=== PATIENT | male | born 1930 | race Caucasian/White ===

== ENCOUNTER 2016-10-20 13:38 | Emergency (ER) | payer MEDICARE, OTHER ==
[2016-10-20 13:51] VITALS: RESP 18; TEMP 97
--- NOTE | 2016-10-20 14:57 | ED ---
General Adult HPI - General Chief complaint: Back Pain/Injury Stated complaint: back spasms Time Seen by Provider: 10/20/16 14:14 Source: patient, family, RN notes reviewed, old records reviewed Mode of arrival: wheelchair Limitations: no limitations - History of Present Illness Initial comments: Chief complaint history of present illness a 86-year-old male here with left flank discomfort i.e. muscle spasms. Causes him to twitch and turn to change positions every minute. He's been the chiropractor twice this week he states he does get some relief for several hours after manipulation within the discomfort comes back. This same thing that happened in January of last year. At that time he had x-rays and CAT scan of the thoracic and lumbar spine. No evidence of any disc rupture or pathology other than generalized degenerative disc changes. Not complaining of any recent falls or injuries. 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 Also history of hypertension. he takes Xanax on days of dialysis which is Saturday and Saturday. Patient's past history includes insulin-dependent diabetes mellitus and - Related Data Home Medications Medication Instructions Recorded Confirmed ALPRAZolam [Xanax] 0.25 - 0.5 mg PO MOWEFR 02/08/16 10/20/16 Aspirin EC [Ecotrin] 81 mg PO Q48H 02/08/16 10/20/16 Atorvastatin [Lipitor] 10 mg PO HS 02/08/16 10/20/16 Calcium Acetate [Calcium Acetate] 1,334 mg PO TID 02/08/16 10/20/16 Cinnamon Bark [Cinnamon] 500 mg PO HS 02/08/16 10/20/16 Coconut Oil 4 tbsp PO DAILY 02/08/16 10/20/16 Cyclobenzaprine [Flexeril] 5 mg PO BID PRN 02/08/16 10/20/16 Fish Oil/Dha/Epa [Fish Oil 1,200 1 cap PO DAILY 02/08/16 10/20/16 mg Fish Oil] INSULIN LISPRO (HumaLOG) [HumaLOG] See Protocol SQ AC-TID PRN 02/08/16 10/20/16 Insulin Detemir [Levemir Flextouch] 35 units SQ QAM 02/08/16 10/20/16 Lidocaine-Prilocaine Cream [Emla 1 applic TOPICAL MOWEFR 02/08/16 10/20/16 Cream 2.5%/2.5%] Multivitamins, Thera [Multivitamin] 1 tab PO DAILY 02/08/16 10/20/16 diphenhydrAMINE [Benadryl] 25 mg PO MOWEFR 02/08/16 10/20/16 Cholecalciferol [Vitamin D3] 1,000 unit PO DAILY 10/20/16 10/20/16 HYDROcodone/APAP 5-325MG [[place] 1 tab PO DAILY PRN 10/20/16 10/20/16 5-325] Magnesium Oxide [Mag-Ox] 400 mg PO DAILY 10/20/16 10/20/16 Ubidecarenone [Co Q-10] 30 mg PO DAILY 10/20/16 10/20/16 Previous Rx's Medication Instructions Recorded Diazepam [Valium] 5 mg PO BID #6 tab 10/20/16 Nitrofurantoin Monohyd/M-Cryst 100 mg PO Q12HR #14 cap 10/20/16 [Macrobid] Allergies Allergy/AdvReac Type Severity Reaction Status Date / Time Penicillins Allergy Unknown Verified 10/20/16 14:25 Childhood Sulfa (Sulfonamide Allergy Unknown Verified 10/20/16 14:25 Antibiotics) Childhood Review of Systems ROS Statement: Those systems with pertinent positive or pertinent negative responses have been documented in the HPI. Review of systems. Patient's denying any visual acuity changes or headache no chest pain or shortness of breath. No abdominal pain by does have left flank pain and spasms which causes him to stiffen and then relax and stiffen and relax. No injuries and no rashes noted. Similar back spasms occurred approximately 8 months ago. He's been on Flexeril for relief. Chiropractic seems to help but only for short period of time. He has gone to the chiropractor twice this week. Past medical problems are delineated in the chief complaint is surgeries include bowel resection for colon cancer and he still has a colostomy bag. Family history daughter and his father had cancer of unknown types. Patient has ALLERGIES to penicillin and sulfa. He quit smoking 20 years ago drinks alcohol very rarely socially. ROS Other: All systems not noted in ROS Statement are negative. Past Medical History Past Medical History: Hypertension Additional Past Medical History / Comment(s): kidney failure, colon ca History of Any Multi-Drug Resistant Organisms: C-DIFF Past Surgical History: Bowel Resection Additional Past Surgical History / Comment(s): colostomy Past Psychological History: No Psychological Hx Reported Smoking Status: Former smoker Past Alcohol Use History: None Reported Past Drug Use History: None Reported General Exam - General Exam Comments Initial Comments: General: The patient is awake and alert, finds it difficult to lay in one position without a spasm to his left flank area. Vital signs show temperature 97.0 pulse 78 respiratory rate 18 pulse ox 96% room air blood pressure 164/74. Elevated systolic noted the patient is in distress because of discomfort to his flank, muscle spasms. Eye: Pupils are equal, round and reactive to light, extra-ocular movements are intact ; there is normal conjunctiva bilaterally. No signs of icterus. Ears, nose, mouth and throat: There are moist mucous membranes and no oral lesions. Neck: The neck is supple, there is no tenderness . Cardiovascular: There is a regular rate and rhythm. No murmur, rub or gallop is appreciated. Respiratory: Decreased air entry left lung field. Gastrointestinal: Soft, non-distended, non-tender abdomen without masses or organomegaly noted. Patient has a functioning colostomy bag. Back: Left mid flank pain increases with movement and a mild palpation no evidence of any rash. Early shingles was discussed. No bruises noted. Musculoskeletal: Normal ROM, no tenderness, There is no pedal edema. Neurological: No neuro deficits Skin: Skin is warm and dry and no rashes or lesions are noted. No rashes noted Limitations: no limitations Course Vital Signs 10/20/16 13:48 Temperature 97.0 F L Pulse Rate 78 Respiratory 18 Rate Blood Pressure 164/74 O2 Sat by Pulse 96 Oximetry Medical Decision Making - Medical Decision Making Daughter was called, and she is living in [place]. She states Valium did help the muscle spasms. She can't remember if he had Levaquin and a reaction to that antibiotic. The daughter established that he can receive Valium as her no contraindications at this time. Chest x-ray is done and reviewed by radiologist his impression is no active cardiopulmonary disease. 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 No change compared to old exam. As read by Dr. Mello Within 30 minutes taking the Valium by mouth. The patient's spasms of stopped. Labs show white count of 9, hemoglobin 12, hematocrit 35 Patient reports ALLERGIES to sulfa and penicillin and possibly Levaquin per daughter. The patient is afebrile, without chills no normal white count 9000. Patient's urine shows bacteria positive, greater than 180 white cells leuk esterase positive. The patient will this time be placed on Macrobid while waiting for cultures and sensitivities to return. Patient also be placed on Valium 5 mg twice a day for the next 2-1/2 days. Advised to call follow up with his family physician. - Lab Data Result diagrams: 10/20/16 15:23 Lab Results 10/20/16 10/20/16 Range/Units 15:23 15:23 WBC 9.2 (3.8-10.6) k/uL RBC 3.68 L (4.30-5.90) m/uL Hgb 12.0 L (13.0-17.5) gm/dL Hct 35.5 L (39.0-53.0) % MCV 96.6 (80.0-100.0) fL MCH 32.7 (25.0-35.0) pg MCHC 33.8 (31.0-37.0) g/dL RDW 13.5 (11.5-15.5) % Plt Count 165 (150-450) k/uL Neutrophils % 61 % Lymphocytes % 26 % Monocytes % 7 % Eosinophils % 4 % Basophils % 0 % Neutrophils # 5.6 (1.3-7.7) k/uL Lymphocytes # 2.4 (1.0-4.8) k/uL Monocytes # 0.7 (0-1.0) k/uL Eosinophils # 0.3 (0-0.7) k/uL Basophils # 0.0 (0-0.2) k/uL Urine Color Yellow Urine Appearance Turbid (Clear) Urine pH 6.5 (5.0-8.0) Ur Specific [place] 1.014 (1.001-1.035) Urine Protein 2+ H (Negative) Urine Glucose (UA) Negative (Negative) Urine Ketones Negative (Negative) Urine Blood Small H (Negative) Urine Nitrate Negative (Negative) Urine Bilirubin Negative (Negative) Urine Urobilinogen <2.0 (<2.0) mg/dL Ur Leukocyte Esterase Large H (Negative) Urine WBC >182 H (0-5) /hpf Urine WBC Clumps Moderate H (None) /hpf Urine Bacteria Many H (None) /hpf Disposition Clinical Impression: Muscle spasm of back, Urinary tract infection, Chronic kidney disease Disposition: HOME SELF-CARE Condition: Fair Instructions: Flank Pain (ED), Urinary Tract Infection in Men (ED) Additional Instructions: Take Valium 5 mg twice a day for the next 2 days. Increase fluid intake. Follow-up with dialysis. Take nitrofurantoin 100 mg twice a day for 1 week. Call follow-up with family physician to make sure antibiotic is appropriate for current infection. Prescriptions: Diazepam [Valium] 5 mg PO BID #6 tab Nitrofurantoin Monohyd/M-Cryst [Macrobid] 100 mg PO Q12HR #14 cap Time of Disposition: 16:11
[2016-10-20] MEDS ORDERED: DIAZEPAM 5 MG TAB PO STA (15:04)
--- NOTE | 2016-10-20 15:44 | XR ---
EXAMINATION TYPE: XR chest 2V DATE OF EXAM: 10/20/2016 3:35 PM COMPARISON: 02/08/2016 HISTORY: Back pain TECHNIQUE: Frontal and lateral views of the chest are obtained. FINDINGS: Heart size is normal. Lungs are clear of infiltrate. There is no heart failure. Thoracic a sudarshan is atheromatous. There are no hilar masses. Bony thorax is intact. IMPRESSION: No active cardio pulmonary disease. 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 No parrish nge compared to old exam.
[2016-10-20 15:51] LABS: Basophils % (A) 0 %; CH 33.6; CHCM 34.9; Eosinophils # (A) 0.3 k/uL (0-0.7); Eosinophils % (A) 4 %; HCT 35.5 % (39.0-53.0); HDW 2.29; Luc # (Auto) 0.22; Luc % (Auto) 2; Lymphocytes # (A) 2.4 k/uL (1.0-4.8); Lymphocytes % (A) 26 %; MCH 32.7 pg (25.0-35.0); MCHC 33.8 g/dL (31.0-37.0); MCV 96.6 fL (80.0-100.0); Mean Platelet Volume 7.9; Monocytes # (A) 0.7 k/uL (0-1.0); Monocytes % (A) 7 %; Neutrophils # (A) 5.6 k/uL (1.3-7.7); Neutrophils % (A) 61 %; RBC 3.68 m/uL (4.30-5.90); RDW 13.5 % (11.5-15.5); WBC 9.2 k/uL (3.8-10.6); WBC (Perox) 9.31
[2016-10-20 15:53] LABS: Appearance,Urine Turbid (Clear); Bacteria,Urine Many /hpf; Bilirubin,Urine Negative (Negative); Glucose,Urine (UA) Negative (Negative); Ketones,Urine Negative (Negative); Leukocyte Esterase,Urine Large (Negative); Nitrite,Urine Negative (Negative); PH, Urine 6.5 (5.0-8.0); Particle Count 164026; Protein,Urine 2+ (Negative); Specific Gravity,Urine 1.014 (1.001-1.035); UA Billing (MACRO vs. MICRO) MICRO; Urobilinogen,Urine <2.0 mg/dL (<2.0); WBC,Urine >182 /hpf (0-5)
[2016-10-20 16:06] LABS: Calcium 9.6 mg/dL (8.4-10.2); Potassium 4.2 mmol/L (3.5-5.1); Total Bilirubin 0.6 mg/dL (0.2-1.3); Total Protein 7.8 g/dL (6.3-8.2)
[2016-10-20 16:30] VITALS: BP 131/67; PULSE 88
== END 2016-10-20 16:30 | disposition home or self-care (01) ==
LOC: EC 13:38
DX: M62.830 Muscle spasm of back (principal); N39.0 Urinary tract infection, site not specified; Z99.2 Dependence on renal dialysis; I12.9 Hypertensive chronic kidney disease with stage 1 through stage 4 chronic kidney disease, or unspecified chronic kidney disease; N18.9 Chronic kidney disease, unspecified; E11.9 Type 2 diabetes mellitus without complications; Z79.82 Long term (current) use of aspirin; Z79.899 Other long term (current) drug therapy; Z88.2 Allergy status to sulfonamides; Z88.0 Allergy status to penicillin; Z85.038 Personal history of other malignant neoplasm of large intestine; Z93.3 Colostomy status; Z87.891 Personal history of nicotine dependence; Z79.4 Long term (current) use of insulin
CPT/HCPCS: 36415; 71020; 80053; 81001; 85025; 87077; 87086; 87186; 99284

== ENCOUNTER 2016-11-09 16:58 | Inpatient (IN) | payer MEDICARE, OTHER ==
--- NOTE | 2016-11-09 17:16 | ED ---
Fever HPI - General Source: EMS, RN notes reviewed Mode of arrival: EMS <Ariadne Garcia - Last Filed: 11/09/16 19:34> <Aurelio Robertson - Last Filed: 11/09/16 19:37> - General Chief Complaint: Fever Stated Complaint: back spasms Time Seen by Provider: 11/09/16 17:09 - History of Present Illness Initial Comments: Patient is an 86-year-old male with chief complaint of fever and back spasms for approximately few hours, patient has a history of chronic back spasms. He denies any recent falls or injuries. Patient has past medical history of renal failure and is currently undergoing dialysis. Patient went to dialysis today and was feeling fine up until after dialysis. At that point he developed fever went to see his primary care provider. The primary care provider decided he needed to be seen in the emergency room. Patient currently has a fever 101.2. Patient states caregiver also states that he's had a cough. Over the past 2 days she's noticed bilateral conjunctiva injection as well. Patient has had no Motrin or Tylenol. Patient usually takes diazepam for his back spasms and they have not been helping over the past day. Patient reports that IV diazepam usually diminishes back spasm. Patient does have a colostomy bag. (Ariadne Garcia) - Related Data Home Medications Medication Instructions Recorded Confirmed ALPRAZolam [Xanax] 0.5 mg PO MOWEFR 02/08/16 11/09/16 Aspirin EC [Ecotrin] 81 mg PO Q48H 02/08/16 11/09/16 Atorvastatin [Lipitor] 10 mg PO HS 02/08/16 11/09/16 Calcium Acetate [Calcium Acetate] 1,334 mg PO AC-TID 02/08/16 11/09/16 Cinnamon Bark [Cinnamon] 500 mg PO HS 02/08/16 11/09/16 Coconut Oil 4 tbsp PO BID 02/08/16 11/09/16 Cyclobenzaprine [Flexeril] 5 mg PO BID PRN 02/08/16 11/09/16 Fish Oil/Dha/Epa [Fish Oil 1,200 1 cap PO DAILY 02/08/16 11/09/16 mg Fish Oil] INSULIN LISPRO (HumaLOG) [HumaLOG] See Protocol SQ AC-TID 02/08/16 11/09/16 Insulin Detemir [Levemir Flextouch] 35 units SQ QAM 02/08/16 11/09/16 Lidocaine-Prilocaine Cream [Emla 1 applic TOPICAL MOWEFR 02/08/16 11/09/16 Cream 2.5%/2.5%] Multivitamins, Thera [Multivitamin] 1 tab PO DAILY 02/08/16 11/09/16 Cholecalciferol [Vitamin D3] 1,000 unit PO DAILY 10/20/16 11/09/16 Magnesium Oxide [Mag-Ox] 400 mg PO DAILY 10/20/16 11/09/16 Ubidecarenone [Co Q-10] 30 mg PO DAILY 10/20/16 11/09/16 Diazepam [Valium] 5 mg PO BID PRN 11/09/16 11/09/16 Allergies Allergy/AdvReac Type Severity Reaction Status Date / Time Penicillins Allergy Unknown Verified 11/09/16 17:47 Childhood Sulfa (Sulfonamide Allergy Unknown Verified 11/09/16 17:47 Antibiotics) Childhood Review of Systems ROS Other: All systems not noted in ROS Statement are negative. <Ariadne Garcia - Last Filed: 11/09/16 19:34> ROS Other: All systems not noted in ROS Statement are negative. <Aurelio Robertson - Last Filed: 11/09/16 19:37> ROS Statement: Those systems with pertinent positive or pertinent negative responses have been documented in the HPI. Past Medical History Past Medical History: Dementia, Dialysis, Hyperlipidemia, Hypertension Additional Past Medical History / Comment(s): kidney failure, colon ca History of Any Multi-Drug Resistant Organisms: C-DIFF Past Surgical History: Bowel Resection Additional Past Surgical History / Comment(s): colostomy Past Psychological History: No Psychological Hx Reported Smoking Status: Former smoker Past Alcohol Use History: None Reported Past Drug Use History: None Reported <Ariadne Garcia - Last Filed: 11/09/16 19:34> General Exam General appearance: alert, in no apparent distress Head exam: Present: atraumatic, normocephalic, normal inspection Eye exam: Present: normal appearance, PERRL, EOMI. Absent: scleral icterus, conjunctival injection, periorbital swelling ENT exam: Present: normal exam, mucous membranes moist Neck exam: Present: normal inspection. Absent: tenderness, meningismus, lymphadenopathy Respiratory exam: Present: other (Patient has diminished lung sounds over the right lung.). Absent: normal lung sounds bilaterally, respiratory distress, wheezes, rales, rhonchi, stridor Cardiovascular Exam: Present: regular rate, normal rhythm, normal heart sounds. Absent: systolic murmur, diastolic murmur, rubs, gallop, clicks GI/Abdominal exam: Present: soft, normal bowel sounds. Absent: distended, tenderness, guarding, rebound, rigid Extremities exam: Present: normal inspection, full ROM, normal capillary refill. Absent: tenderness, pedal edema, joint swelling, calf tenderness Back exam: Present: normal inspection Neurological exam: Present: alert, oriented X3, CN II-XII intact Psychiatric exam: Present: normal affect, normal mood Skin exam: Present: warm, dry, intact, normal color. Absent: rash <Ariadne Garcia - Last Filed: 11/09/16 19:34> General appearance: alert, in no apparent distress Head exam: Present: atraumatic, normocephalic, normal inspection Eye exam: Present: normal appearance, PERRL, EOMI. Absent: scleral icterus, conjunctival injection, periorbital swelling ENT exam: Present: normal exam, mucous membranes moist Neck exam: Present: normal inspection. Absent: tenderness, meningismus, lymphadenopathy Respiratory exam: Present: normal lung sounds bilaterally. Absent: respiratory distress, wheezes, rales, rhonchi, stridor Cardiovascular Exam: Present: regular rate, normal rhythm, normal heart sounds. Absent: systolic murmur, diastolic murmur, rubs, gallop, clicks GI/Abdominal exam: Present: soft, normal bowel sounds. Absent: distended, tenderness, guarding, rebound, rigid Extremities exam: Present: normal inspection, full ROM, normal capillary refill. Absent: tenderness, pedal edema, joint swelling, calf tenderness Back exam: Present: normal inspection Neurological exam: Present: alert, oriented X3, CN II-XII intact Psychiatric exam: Present: normal affect, normal mood Skin exam: Present: warm, dry, intact, normal color. Absent: rash <Aurelio Robertson - Last Filed: 11/09/16 19:37> - General Exam Comments Initial Comments: Patient is an ill-appearing 86-year-old male. (Ariadne Garcia) Course <Ariadne Garcia - Last Filed: 11/09/16 19:34> <Aurelio Robertson - Last Filed: 11/09/16 19:37> Vital Signs 11/09/16 02 17:07 17:21 Temperature 101.6 F H Pulse Rate 100 107 H Respiratory 20 22 Rate Blood Pressure 162/72 139/65 O2 Sat by Pulse 92 L 97 Oximetry - Reevaluation(s) Reevaluation #1: 11/09/16 19:37 Spoke with patient's transfer physician Dr. Marshall, will continue to evaluate for fever (Aurelio Robertson) Reevaluation #2: 11/09/16 19:37 Patient's spasms are improved (Aurelio Robertson) Medical Decision Making - Lab Data Result diagrams: 11/09/16 17:15 11/09/16 17:15 <Ariadne Garcia - Last Filed: 11/09/16 19:34> - Lab Data Result diagrams: 11/09/16 17:15 11/09/16 17:15 <Aurelio Robertson - Last Filed: 11/09/16 19:37> - Medical Decision Making Family reports he is ALLERGIC to Levaquin. (Ariadne Garcia) 86 now the ER for evaluation of fever back spasms, patient will be admitted for fever evaluation, control symptoms. (Aurelio Robertson) - Lab Data Lab Results 11/09/16 11/09/16 11/09/16 Range/Units 17:15 17:15 17:15 WBC 14.4 H (3.8-10.6) k/uL RBC 3.41 L (4.30-5.90) m/uL Hgb 11.3 L (13.0-17.5) gm/dL Hct 33.9 L (39.0-53.0) % MCV 99.4 (80.0-100.0) fL MCH 33.0 (25.0-35.0) pg MCHC 33.2 (31.0-37.0) g/dL RDW 13.5 (11.5-15.5) % Plt Count 191 (150-450) k/uL Neutrophils % 83 % Lymphocytes % 9 % Monocytes % 5 % Eosinophils % 1 % Basophils % 0 % Neutrophils # 11.9 H (1.3-7.7) k/uL Lymphocytes # 1.2 (1.0-4.8) k/uL Monocytes # 0.8 (0-1.0) k/uL Eosinophils # 0.1 (0-0.7) k/uL Basophils # 0.1 (0-0.2) k/uL Sodium 139 (137-145) mmol/L Potassium 4.1 (3.5-5.1) mmol/L Chloride 95 L (98-107) mmol/L Carbon Dioxide 28 (22-30) mmol/L Anion Gap 16 mmol/L BUN 31 H (9-20) mg/dL Creatinine 5.40 H* (0.66-1.25) mg/dL Est GFR (MDRD) Af Amer 12 (>60 ml/min/1.73 sqM) Est GFR (MDRD) Non-Af 10 (>60 ml/min/1.73 sqM) Glucose 171 H (74-99) mg/dL Plasma Lactic Acid Aj (0.7-2.0) mmol/L Calcium 9.5 (8.4-10.2) mg/dL Total Bilirubin 0.7 (0.2-1.3) mg/dL AST 22 (17-59) U/L ALT 24 (21-72) U/L Alkaline Phosphatase 72 (38-126) U/L Total Protein 7.7 (6.3-8.2) g/dL Albumin 4.3 (3.5-5.0) g/dL Heterophile Antibody Negative (Negative) Influenza Type A RNA (Not Detectd) Influenza Type B (PCR) (Not Detectd) 11/09/16 11/09/16 Range/Units 17:15 17:15 WBC (3.8-10.6) k/uL RBC (4.30-5.90) m/uL Hgb (13.0-17.5) gm/dL Hct (39.0-53.0) % MCV (80.0-100.0) fL MCH (25.0-35.0) pg MCHC (31.0-37.0) g/dL RDW (11.5-15.5) % Plt Count (150-450) k/uL Neutrophils % % Lymphocytes % % Monocytes % % Eosinophils % % Basophils % % Neutrophils # (1.3-7.7) k/uL Lymphocytes # (1.0-4.8) k/uL Monocytes # (0-1.0) k/uL Eosinophils # (0-0.7) k/uL Basophils # (0-0.2) k/uL Sodium (137-145) mmol/L Potassium (3.5-5.1) mmol/L Chloride (98-107) mmol/L Carbon Dioxide (22-30) mmol/L Anion Gap mmol/L BUN (9-20) mg/dL Creatinine (0.66-1.25) mg/dL Est GFR (MDRD) Af Amer (>60 ml/min/1.73 sqM) Est GFR (MDRD) Non-Af (>60 ml/min/1.73 sqM) Glucose (74-99) mg/dL Plasma Lactic Acid Aj 1.7 (0.7-2.0) mmol/L Calcium (8.4-10.2) mg/dL Total Bilirubin (0.2-1.3) mg/dL AST (17-59) U/L ALT (21-72) U/L Alkaline Phosphatase (38-126) U/L Total Protein (6.3-8.2) g/dL Albumin (3.5-5.0) g/dL Heterophile Antibody (Negative) Influenza Type A RNA Not Detected (Not Detectd) Influenza Type B (PCR) Not Detected (Not Detectd) Disposition Time of Disposition: 19:35 <Ariadne Garcia - Last Filed: 11/09/16 19:34> <Aurelio Robertson - Last Filed: 11/09/16 19:37> Clinical Impression: Back spasm, Fever and chills, Renal failure, Bilateral conjunctivitis, Cough Disposition: ADMITTED IP TO THIS HOSP Condition: Stable Referrals: Chace Marshall MD [Primary Care Provider] - 1-2 days
[2016-11-09] MEDS ORDERED: SODIUM CHLORIDE 0.9% 1,000 ML IV STA (17:17)
[2016-11-09] MEDS ORDERED: SODIUM CHLORIDE 0.9% 500 ML IV STA (17:17)
[2016-11-09] MEDS ORDERED: DIAZEPAM 5 MG/ML 2 ML SYRINGE IVP STA (17:18)
[2016-11-09] MEDS ORDERED: ACETAMINOPHEN IV (For NPO) 1,000 MG in EMPTY BAG 1 BAG IVPB STA (17:24)
[2016-11-09 17:31] LABS: Basophils # (A) 0.1 k/uL (0-0.2); Basophils % (A) 0 %; CH 33.6; Eosinophils # (A) 0.1 k/uL (0-0.7); Eosinophils % (A) 1 %; HCT 33.9 % (39.0-53.0); HDW 2.32; HGB 11.3 gm/dL (13.0-17.5); Luc # (Auto) 0.29; Luc % (Auto) 2; Lymphocytes # (A) 1.2 k/uL (1.0-4.8); Lymphocytes % (A) 9 %; MCHC 33.2 g/dL (31.0-37.0); MCV 99.4 fL (80.0-100.0); Mean Platelet Volume 7.9; Monocytes # (A) 0.8 k/uL (0-1.0); Monocytes % (A) 5 %; Neutrophils # (A) 11.9 k/uL (1.3-7.7); Neutrophils % (A) 83 %; RBC 3.41 m/uL (4.30-5.90); RDW 13.5 % (11.5-15.5); WBC 14.4 k/uL (3.8-10.6); WBC (Perox) 15.13
[2016-11-09] MEDS ORDERED: CIPROFLOXACIN 0.3% OPHTH SOLN 2.5 ML BTL BOTH EYES STA (17:40)
[2016-11-09 17:42] LABS: Calcium 9.5 mg/dL (8.4-10.2); Potassium 4.1 mmol/L (3.5-5.1); Total Bilirubin 0.7 mg/dL (0.2-1.3); Total Protein 7.7 g/dL (6.3-8.2)
--- NOTE | 2016-11-09 18:23 | XR ---
EXAMINATION TYPE: XR chest 2V DATE OF EXAM: 11/09/2016 5:52 PM COMPARISON: 10/20/2016 HISTORY: Fever TECHNIQUE: Frontal and lateral views of the chest are obtained. FINDINGS: There is coarsening of interstitial pulmonary markings. There is no gross heart failure. T horacic aorta is atheromatous. There is no pleural effusion. There are no hilar masses. IMPRESSION: Pulmonary fibrotic changes. Atheromatous aorta. No change compared to old exam. No acute lung disease.
[2016-11-09] MEDS ORDERED: LEVOFLOXACIN 750MG-D5W PMX 750 MG in DEXTROSE/WATER 1 150ML.BAG IVPB STA (18:51)
[2016-11-09] MEDS ORDERED: ONDANSETRON 4 MG/2 ML VIAL IVP PRN (19:24)
[2016-11-09] MEDS ORDERED: NALOXONE 0.4 MG/ML 1 ML VIAL IV PRN (19:24)
[2016-11-09 20:14] LABS: Appearance,Urine Cloudy (Clear); Bacteria,Urine Rare /hpf; Bilirubin,Urine Negative (Negative); Glucose,Urine (UA) Negative (Negative); Ketones,Urine Negative (Negative); Leukocyte Esterase,Urine Large (Negative); Nitrite,Urine Negative (Negative); Particle Count 75199; Protein,Urine 2+ (Negative); RBC,Urine 130 /hpf (0-5); Specific Gravity,Urine 1.013 (1.001-1.035); UA Billing (MACRO vs. MICRO) MICRO; Urobilinogen,Urine <2.0 mg/dL (<2.0); WBC,Urine >182 /hpf (0-5)
[2016-11-09] MEDS ORDERED: ACETAMINOPHEN TAB 500 MG TAB PO PRN (20:49)
[2016-11-09 21:48] LABS: Hemoglobin A1C 6.4 % (4.2-6.1)
[2016-11-09] MEDS: LORazepam 2 MG/ML SYRINGE IV PRN (21:50)
[2016-11-09] MEDS: ATORVASTATIN 10 MG TAB PO SCH (22:35)
[2016-11-09] MEDS: CIPROFLOXACIN 0.3% OPHTH SOLN 2.5 ML BTL BOTH EYES SCH (23:48)
[2016-11-09 23:50] LABS: Glucose,Whole Blood 141 mg/dL (75-99)
[2016-11-10] MEDS: CIPROFLOXACIN 0.3% OPHTH SOLN 2.5 ML BTL BOTH EYES SCH ×6 (04:42→23:30)
[2016-11-10 07:21] LABS: Glucose,Whole Blood 125 mg/dL (75-99)
[2016-11-10] MEDS: LORazepam 2 MG/ML SYRINGE IV PRN ×2 (08:14→21:50)
[2016-11-10] MEDS: MAGNESIUM OXIDE 400 MG TAB PO SCH (08:18)
[2016-11-10] MEDS: CALCIUM ACETATE 667 MG CAP PO SCH ×3 (08:18→18:06)
[2016-11-10] MEDS: ENOXAPARIN 40 MG/0.4 ML SYRINGE SQ SCH (08:18)
[2016-11-10] MEDS: INSULIN LISPRO (humaLOG) 300 UNIT/3 ML VIAL SQ SCH ×4 (08:18→18:13)
[2016-11-10] MEDS: ASPIRIN 81 MG CHEW PO SCH (08:18)
[2016-11-10] MEDS: INSULIN DETEMIR 100 UNIT/ML 10 ML VIAL SQ SCH (08:22)
[2016-11-10] MEDS: CYCLOBENZAPRINE 5 MG TAB PO PRN ×2 (08:34→21:02)
[2016-11-10] MEDS ORDERED: NON-FORMULARY DRUG (Ubidecarenone [Co Q-10] 30 MG) PO SCH (09:00)
[2016-11-10] MEDS ORDERED: NON-FORMULARY DRUG (Fish Oil/Dha/Epa [Fish Oil 1,200 Mg Fish Oil] 1 CAP) PO SCH (09:00)
[2016-11-10] MEDS ORDERED: BACLOFEN 10 MG TAB PO PRN (09:19)
[2016-11-10 10:13] LABS: Basophils % (A) 0 %; CH 33.5; CHCM 33.2; Eosinophils # (A) 0.1 k/uL (0-0.7); Eosinophils % (A) 1 %; HCT 30.3 % (39.0-53.0); HDW 2.32; HGB 10.1 gm/dL (13.0-17.5); Luc # (Auto) 0.04; Luc % (Auto) 0; Lymphocytes # (A) 0.4 k/uL (1.0-4.8); Lymphocytes % (A) 4 %; MCH 33.7 pg (25.0-35.0); MCHC 33.2 g/dL (31.0-37.0); MCV 101.4 fL (80.0-100.0); Macrocytosis Slight; Mean Platelet Volume 8.5; Monocytes # (A) 0.2 k/uL (0-1.0); Monocytes % (A) 2 %; Neutrophils # (A) 9.4 k/uL (1.3-7.7); Neutrophils % (A) 93 %; RBC 2.99 m/uL (4.30-5.90); RDW 13.5 % (11.5-15.5); WBC 10.2 k/uL (3.8-10.6); WBC (Perox) 10.58
[2016-11-10 10:23] LABS: Calcium 8.6 mg/dL (8.4-10.2); Potassium 4.1 mmol/L (3.5-5.1)
[2016-11-10 12:17] LABS: Glucose,Whole Blood 154 mg/dL (75-99)
[2016-11-10] MEDS: MULTIVITAMINS, THERA 1 EACH TAB PO SCH (12:45)
[2016-11-10] MEDS: CHOLECALCIFEROL 1,000 UNIT TAB PO SCH (12:45)
--- NOTE | 2016-11-10 16:00 | HP ---
DATE OF ADMISSION: 11/09/2016 PRESENTING COMPLAINT: Fever. HISTORY OF PRESENTING COMPLAINT: This is an 86-year-old patient of Dr. Marshall who lives by himself. 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 The patient presents with fever up to 101, urinary frequency. Also got chronic back pain, having more spasms. Denies any respiratory symptoms. Started on ceftriaxone. REVIEW OF SYSTEMS: CONSTITUTIONAL: Tired, febrile. HEENT: None. RESPIRATORY: None. CARDIOVASCULAR: None. GASTROINTESTINAL: None. GENITOURINARY: Urinary frequency. DERMATOLOGICAL: None. HEMATOLOGICAL: None. LYMPHATICS: None. PSYCHIATRY: Forgetful. NEUROLOGICAL: Getting back spasms. Past medical history of back spasms, dementia, end-stage kidney disease with fistula in the left arm, hypertension, colon cancer, coronary artery disease with stent, diabetes, anxiety. PAST SURGICAL HISTORY: Bowel resection, cardiac cath with stent, colostomy 2010. SOCIAL HISTORY: Lives with himself at [facility], uses a walker. FAMILY HISTORY: Reviewed, noncontributory to the presentation. HOME MEDICATIONS: 1. CoQ10, 30 mg p.o. daily. 2. Multivitamin 1 tablet p.o. daily. 3. Magnesium oxide 400 mg p.o. daily. 4. Lidocaine topical Saturday, Saturday and Saturday. 5. Levemir 35 units subcu in the morning. 6. Humalog per protocol. 7. Fish oil 1200 mg capsule daily. 8. Valium 5 mg p.o. b.i.d. p.r.n. 9. Flexeril 5 mg p.o. b.i.d. p.r.n. 10. Coconut oil 4 tablespoons p.o. b.i.d. 11. Cinnamon 500 mg p.o. q.h.s. 12. Vitamin D3, 1000 units p.o. daily. 13. PhosLo 2 tablets p.o. t.i.d. 14. Lipitor 10 mg q.h.s. 15. Aspirin 81 mg q.48 hours. 16. Xanax, 0.5 p.o. Saturday, Saturday and Saturday. Allergies to PENICILLIN, SULFA. On examination, T-max 101.6, pulse 107, respirations 22, blood pressure 139/65, pulse ox 97% on room air. GENERAL APPEARANCE: Well built, lying in bed, tired appearing. EYES: Pupils equal. Conjunctivae normal. HENT: External appearance of nose and ears normal. Oral cavity normal. NECK: JVD not raised. Mass not palpable. RESPIRATORY: Effort normal. LUNGS: Decreased breath sounds. CARDIOVASCULAR: First and second sounds normal. No edema. ABDOMEN: Soft, nontender. Liver and spleen not palpable. LYMPHATIC: No lymph nodes palpable of the neck or axillae. PSYCHIATRY: Alert and oriented x3. Mood and affect normal. NEUROLOGICAL: Pupils equal. Cranial nerves grossly intact. Power and sensation grossly intact. INVESTIGATIONS: White count 14.4, hemoglobin 11.3. Potassium 4.1. BUN 31, creatinine 5.40. UA positive for leukocyte esterase. Influenza negative. ASSESSMENT: 1. Acute severe urinary tract infection with sepsis, present on admission. 2. 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 3. Alzheimer's dementia with no behavioral disturbance, late onset. 4. Essential hypertension. 5. Coronary artery disease with prior history of stent. 6. Diabetes mellitus type 2, chronically on insulin. 7. Anxiety, not otherwise specified. 8. Acute flareup of back muscle spasms. PLAN: Patient was put on baclofen for muscle spasm for which he is feeling better. Put on IV ceftriaxone. Cultures are pending. Home medications resumed. Care was discussed with daughter and son-in-law at the bedside. Questions were answered.
[2016-11-10 17:13] LABS: Glucose,Whole Blood 147 mg/dL (75-99)
[2016-11-10] MEDS: BACLOFEN 10 MG TAB PO SCH ×2 (18:06→20:59)
[2016-11-10 20:43] LABS: Glucose,Whole Blood 115 mg/dL (75-99)
[2016-11-10] MEDS: ATORVASTATIN 10 MG TAB PO SCH (20:58)
[2016-11-10] MEDS ORDERED: DIAZEPAM 5 MG/ML 2 ML SYRINGE IVP STA (23:19)
[2016-11-11] MEDS: CIPROFLOXACIN 0.3% OPHTH SOLN 2.5 ML BTL BOTH EYES SCH ×5 (05:32→19:49)
[2016-11-11 07:29] LABS: Glucose,Whole Blood 122 mg/dL (75-99)
[2016-11-11] MEDS ORDERED: PNEUMOCOCCAL VACC-PNEUMOVAX 23 25 MCG/0.5 ML VIAL IM ONE (08:27)
[2016-11-11] MEDS ORDERED: INFLUENZA VACCINE (3YR+) 60 MCG/0.5 ML SYRINGE IM ONE (08:27)
[2016-11-11] MEDS: MAGNESIUM OXIDE 400 MG TAB PO SCH (08:55)
[2016-11-11] MEDS: BACLOFEN 10 MG TAB PO SCH ×4 (08:55→19:51)
[2016-11-11] MEDS: ENOXAPARIN 40 MG/0.4 ML SYRINGE SQ SCH (08:56)
[2016-11-11] MEDS: INSULIN DETEMIR 100 UNIT/ML 10 ML VIAL SQ SCH (08:56)
[2016-11-11] MEDS: CALCIUM ACETATE 667 MG CAP PO SCH ×3 (08:56→16:47)
[2016-11-11] MEDS: LORazepam 2 MG/ML SYRINGE IV PRN (09:43)
[2016-11-11 11:52] LABS: Glucose,Whole Blood 150 mg/dL (75-99)
[2016-11-11] MEDS: INSULIN LISPRO (humaLOG) 300 UNIT/3 ML VIAL SQ SCH ×2 (12:00→17:18)
[2016-11-11] MEDS: MULTIVITAMINS, THERA 1 EACH TAB PO SCH (12:00)
[2016-11-11] MEDS: CHOLECALCIFEROL 1,000 UNIT TAB PO SCH (12:00)
[2016-11-11 17:23] LABS: Glucose,Whole Blood 161 mg/dL (75-99)
[2016-11-11] MEDS: ATORVASTATIN 10 MG TAB PO SCH (19:49)
[2016-11-11] MEDS ORDERED: methylPREDNISolone SOD SUCCI 125 MG/2 ML VIAL IV SCH (21:45)
[2016-11-11] MEDS: LATANOPROST 0.005% OPHTH DROPS 2.5 ML BTL BOTH EYES SCH (22:09)
[2016-11-11] MEDS: NAPROXEN 250 MG TAB PO SCH (22:10)
[2016-11-11 22:26] LABS: Glucose,Whole Blood 110 mg/dL (75-99)
[2016-11-12] MEDS: CIPROFLOXACIN 0.3% OPHTH SOLN 2.5 ML BTL BOTH EYES SCH ×6 (04:23→23:45)
[2016-11-12 07:19] LABS: Glucose,Whole Blood 257 mg/dL (75-99)
[2016-11-12] MEDS ORDERED: ALPRAZolam 0.5 MG TAB PO SCH (09:00)
[2016-11-12 10:04] LABS: Basophils % (A) 0 %; CH 32.6; CHCM 31.2; Eosinophils % (A) 0 %; HCT 35.4 % (39.0-53.0); HDW 2.35; HGB 11.2 gm/dL (13.0-17.5); Hypochromasia Slight; Luc # (Auto) 0.06; Luc % (Auto) 1; Lymphocytes # (A) 0.8 k/uL (1.0-4.8); Lymphocytes % (A) 9 %; MCH 33.3 pg (25.0-35.0); MCHC 31.7 g/dL (31.0-37.0); MCV 105.1 fL (80.0-100.0); Macrocytosis Slight; Mean Platelet Volume 8.2; Monocytes # (A) 0.2 k/uL (0-1.0); Monocytes % (A) 2 %; Neutrophils # (A) 7.6 k/uL (1.3-7.7); Neutrophils % (A) 87 %; RBC 3.37 m/uL (4.30-5.90); WBC 8.7 k/uL (3.8-10.6); WBC (Perox) 8.96
[2016-11-12 10:26] LABS: Calcium 9.1 mg/dL (8.4-10.2); Potassium 5.5 mmol/L (3.5-5.1); Total Bilirubin 0.6 mg/dL (0.2-1.3)
[2016-11-12] MEDS ORDERED: BACLOFEN 10 MG TAB PO PRN (11:06)
--- NOTE | 2016-11-12 11:10 | PN ---
DATE OF SERVICE: 11/11/2016 PRESENTING COMPLAINT: Back spasm. INTERVAL HISTORY: This patient presented with severe UTI, getting in trouble with his back spasm. Patient has had back pain over a period of time and known to have arthritis in the spine, in certain positions, he goes more into spasms. I did put the patient on baclofen yesterday. Patient did tolerate a diet. Sitting up in a chair, daughter is at the bedside. Review of systems done for constitutional, cardiovascular, GI, pulmonary; relevant findings as above. Patient's fevers is coming down. Current medications are reviewed that include IV ceftriaxone. On examination, temperature 97.2, pulse 84, respirations 16, blood pressure 106/58, pulse ox 97% on room air. GENERAL APPEARANCE: Sitting up in a chair, tired-appearing. EYES: Pupils equal, conjunctivae normal. NECK: JVD not raised. Mass not palpable. Respiratory effort normal. LUNGS: Decreased breath sounds. CARDIOVASCULAR: First and second sounds normal. No edema. ABDOMEN: Soft, nontender. Liver and spleen not palpable. PSYCHIATRY: Awake, answering questions appropriately. INVESTIGATIONS: White count 10.2, hemoglobin 10.1, potassium 4.1. Urine culture is growing Klebsiella oxytoca. ASSESSMENT: 1. Acute severe urinary tract infection with sepsis, present on admission growing Klebsiella oxytoca. 2. End-stage kidney disease on hemodialysis. Left arm fistula for the same. 3. Alzheimer's dementia, with no behavioral disturbance, late onset. 4. Essential hypertension. 5. Coronary artery disease with prior history of stent. 6. Diabetes mellitus type 2, chronically on insulin. 7. Anxiety, not otherwise specified. 8. Thoracolumbar spine arthritis with associated spasms. PLAN: Patient's clinically is doing better, fever has come down. White count is coming down. We have an organism to which antibiotic is sensitive. Increase the baclofen to 4 times a day and also add naproxen 500 mg twice a day. Expect patient to feel better, though it was understood that patient's arthritis is a chronic condition. Patient did have a thoracolumbar spine CT a few months ago that did show generalized osteopenia, scoliosis and there was multiple disc bulging in the lower lobe lumbar spine. At this point, will also give the patient a short burst of steroids to help with the pain.
[2016-11-12] MEDS: INSULIN LISPRO (humaLOG) 300 UNIT/3 ML VIAL SQ SCH ×3 (11:16→17:21)
[2016-11-12] MEDS: CALCIUM ACETATE 667 MG CAP PO SCH ×3 (11:16→17:22)
[2016-11-12] MEDS: ASPIRIN 81 MG CHEW PO SCH (11:17)
[2016-11-12] MEDS: MAGNESIUM OXIDE 400 MG TAB PO SCH (11:17)
[2016-11-12] MEDS: NAPROXEN 250 MG TAB PO SCH ×2 (11:18→20:06)
[2016-11-12] MEDS: predniSONE 20 MG TAB PO SCH (11:18)
[2016-11-12 11:40] LABS: Glucose,Whole Blood 186 mg/dL (75-99)
[2016-11-12] MEDS: INSULIN DETEMIR 100 UNIT/ML 10 ML VIAL SQ SCH (11:57)
[2016-11-12] MEDS: MULTIVITAMINS, THERA 1 EACH TAB PO SCH (11:58)
[2016-11-12] MEDS: ENOXAPARIN 30 MG/0.3 ML SYRINGE SQ SCH (11:58)
[2016-11-12] MEDS: CHOLECALCIFEROL 1,000 UNIT TAB PO SCH (11:58)
[2016-11-12] MEDS: LIDOCAINE-PRILOCAINE 2.5-2.5% CREAM 5 GM TUBE TOPICAL SCH (11:58)
--- NOTE | 2016-11-12 12:40 | CT ---
EXAMINATION TYPE: CT brain wo con DATE OF EXAM: 11/12/2016 12:26 PM COMPARISON: 06/09/2011 HISTORY: Mental status changes. CT DLP: 1012.[address] of the brain was performed. The ventricles, basal cisterns and sulci overlying the cerebral convexities demonstrate moderate enla rgement. Remote insult right frontal lobe. There is no evidence for intracranial hemorrhage or sulcal effacement. There is decreased attenuation about the periventricular white matter and deep white matter of both c erebral hemispheres, compatible with chronic small vessel ischemia. Differential diagnosis does inclu de demyelination. No mass effects are seen.No midline shift. Osseous calvarium is intact. Chronic sinusitis noted. If symptoms persist consider MRI. IMPRESSION: 1. Age related atrophic and chronic small vessel ischemic change without acute intracranial process s een at this time.
[2016-11-12] MEDS: BACLOFEN 10 MG TAB PO SCH (12:49)
--- NOTE | 2016-11-12 15:13 | CONS ---
DATE OF CONSULTATION: Reason for consult is end-stage renal disease. HISTORY OF PRESENT ILLNESS: Patient is an 86-year-old male who was admitted to the hospital with complaints of back pain. Patient had been having significant back pain per his daughter and he has not been able to complete his dialysis as outpatient. He also had a fever of 101.2 degrees Fahrenheit prior to admission. No ongoing diarrhea, nausea or vomiting. No cough. No chest pain. PAST MEDICAL HISTORY: Significant for dementia, hyperlipidemia, hypertension, anemia of chronic disease, metabolic bone disease, history of colon cancer, history of C. difficile colitis. PAST SURGICAL HISTORY: Bowel resection, colostomy, AV fistula. SOCIAL HISTORY: Patient is an ex-smoker. No history of drug abuse or alcohol abuse. Medications prior to admission included Xanax, Ecotrin, Lipitor, calcium acetate, insulin, vitamin D3, magnesium. Allergies include PENICILLIN and SULFA. On examination, patient is currently knee sleeping. He is not easily arousable. He is not in any acute distress. Blood pressure was 127/58, heart rate 70 per minute. He is afebrile. Examination of the heart, S1 and S2. Examination of the lungs, bilateral breath sounds are heard. Abdomen is soft, nontender. Examination of lower extremities shows no evidence of edema. TELEGRAPH OFFICE ROUTE AIDE exam shows patient not easily arousable. He is otherwise comfortable. He had been moving all 4 extremities previously, not able to examine now. Labs show sodium 138, potassium 5.5, BUN of 60. Hemoglobin 11.2, serum creatinine 9.08. Chest x-ray shows no acute pulmonary disease. Blood pressure on admission was 101, and it was also at 102.6 on 11/10. ASSESSMENT: 1. End-stage renal disease on hemodialysis on a Saturday, Saturday, Saturday schedule as outpatient via left arm AV fistula. 2. Altered mentation possibly related to pain medications. Baclofen has been discontinued as a scheduled dose. Patient will be dialyzed today, hopefully mentation will improve post dialysis. 3. Chronic kidney disease bone mineral disorder, maintained on PhosLo. 4. Fever, secondary to urinary tract infection. Urine culture grew Klebsiella oxytoca. 5. Mild hyperkalemia. Expect improvement with dialysis today. PLAN: Hemodialysis today. Continue antibiotics. Repeat labs in a.m. Agree with decreasing the baclofen.
[2016-11-12 17:05] LABS: Glucose,Whole Blood 180 mg/dL (75-99)
[2016-11-12] MEDS ORDERED: GELATIN SPONGE,ABSORB (SMALL) 1 EACH SPONGE ONE (17:30)
[2016-11-12 17:50] LABS: Hepatitis B Surface Ag Index 0.07
[2016-11-12] MEDS: ATORVASTATIN 10 MG TAB PO SCH (20:06)
[2016-11-12] MEDS: LATANOPROST 0.005% OPHTH DROPS 2.5 ML BTL BOTH EYES SCH (20:22)
[2016-11-12 20:44] LABS: Glucose,Whole Blood 165 mg/dL (75-99)
[2016-11-13] MEDS: CIPROFLOXACIN 0.3% OPHTH SOLN 2.5 ML BTL BOTH EYES SCH ×6 (03:57→23:21)
[2016-11-13 06:42] LABS: Glucose,Whole Blood 140 mg/dL (75-99)
[2016-11-13] MEDS: INSULIN LISPRO (humaLOG) 300 UNIT/3 ML VIAL SQ SCH ×3 (07:54→17:20)
[2016-11-13] MEDS: INSULIN DETEMIR 100 UNIT/ML 10 ML VIAL SQ SCH (07:55)
[2016-11-13] MEDS: ENOXAPARIN 30 MG/0.3 ML SYRINGE SQ SCH (07:56)
[2016-11-13] MEDS: CALCIUM ACETATE 667 MG CAP PO SCH ×3 (07:58→16:26)
[2016-11-13] MEDS: MAGNESIUM OXIDE 400 MG TAB PO SCH (07:59)
[2016-11-13] MEDS: NAPROXEN 250 MG TAB PO SCH ×2 (08:01→20:27)
[2016-11-13] MEDS: predniSONE 20 MG TAB PO SCH (08:02)
[2016-11-13 10:28] LABS: Calcium 9.3 mg/dL (8.4-10.2); Potassium 4.2 mmol/L (3.5-5.1); Total Bilirubin 0.6 mg/dL (0.2-1.3); Total Protein 7.7 g/dL (6.3-8.2)
[2016-11-13] MEDS: CHOLECALCIFEROL 1,000 UNIT TAB PO SCH (11:00)
[2016-11-13] MEDS: MULTIVITAMINS, THERA 1 EACH TAB PO SCH (11:00)
--- NOTE | 2016-11-13 11:03 | PN ---
DATE OF SERVICE: 11/12/2016 PRESENTING COMPLAINT: Back spasms, lethargic. INTERVAL HISTORY: This is a patient who presented with severe UTI and having had back spasms. I increased the dose of baclofen yesterday. Patient has been rather lethargic. Patient not been getting ( ) dialyzed according to the daughter at the bedside. The patient is arousable, but still rather lethargic. Review of systems cannot be done because patient lethargic. Current medications are resumed that include ceftriaxone. On examination, temperature 97, pulse 72, respiration 18, blood pressure 128/67, pulse ox 99% on 3 L. GENERAL APPEARANCE: Lying in bed, lethargic. EYES: Pupils equal. Conjunctivae normal. NECK: JVD not raised. Mass not palpable. Respiratory effort normal. LUNGS: Diminished breath sounds. CARDIOVASCULAR: First and second sounds normal. No edema. ABDOMEN: Soft, nontender. Liver and spleen not palpable. PSYCHIATRY: Lethargic, but arousable. INVESTIGATIONS: White count 8.7, hemoglobin 11.2. Potassium 5.5. BUN 60 and creatinine 9.08. Blood cultures remain negative. ASSESSMENT: 1. Acute metabolic encephalopathy, could be from baclofen and could encephalopathy from incomplete dialysis. At the same time, will rule out a stroke that I do not see any focal signs and should not really affect mentation. 2. Acute severe urinary tract infection with sepsis, present on admission, growing Klebsiella oxytoca. Both fever and white count have improved. 3. End-stage kidney disease on hemodialysis, left arm fistula for the same. Due for dialysis today. 4. Alzheimer's dementia with no behavioral disturbance, late onset. 5. Essential hypertension. 6. Coronary artery disease with prior history of stent. 7. Diabetes mellitus type 2, chronically on insulin. 8. Anxiety, not otherwise specified. 9. Thoracolumbar spine arthritis with associated spasm. PLAN: We will stop patient's scheduled baclofen and just use it p.r.n. Patient due to get dialyzed today. Will also have CT scan of the brain that I ordered without contrast, that did come back not showing anything acute. Also, patient's Ativan and Xanax, that was p.r.n. was discontinued. Later in the day I decided to go ahead and order EEG and also get a neurology opinion though there is no focal symptoms. Care was discussed in length earlier today. Will follow.
[2016-11-13 11:52] LABS: Glucose,Whole Blood 142 mg/dL (75-99)
--- NOTE | 2016-11-13 12:51 | PN ---
Patient is seen for follow-up for end-stage renal disease. He has had altered mentation, which improved slightly for dialysis yesterday; however, he is still not completely awake. He has been mumbling according to the nursing staff and he is going down for an EEG now. Vital signs are reviewed. Blood pressure has been 138/58, heart rate 75 per minute. He is afebrile. There is no evidence of edema in his lower extremities. ABDOMEN: Soft, nontender. Patient appears euvolemic. O[employer] MANAGER exam cannot be performed,; however, he has been moving all 4 extremities. Labs show sodium 141, potassium 4.2. ASSESSMENT: 1. End-stage renal disease on hemodialysis normally on a Saturday, Saturday, Saturday schedule. The patient will be dialyzed again today for about 3 hours. 2. Altered mentation possibly related to medication slightly improved. We will re-evaluate after dialysis today. He has not received any pain medications. 3. Chronic kidney bone mineral disorder, maintained on PhosLo. 4. Urinary tract infection with urine culture showing Klebsiella Oxytoca. PLAN: Repeat dialysis today and patient will be scheduled again tomorrow, which would be his regular day.
[2016-11-13 16:50] LABS: Glucose,Whole Blood 119 mg/dL (75-99)
[2016-11-13] MEDS: LATANOPROST 0.005% OPHTH DROPS 2.5 ML BTL BOTH EYES SCH (20:27)
[2016-11-13] MEDS: ATORVASTATIN 10 MG TAB PO SCH (20:27)
[2016-11-13 21:53] LABS: Glucose,Whole Blood 208 mg/dL (75-99)
--- NOTE | 2016-11-13 22:54 | CONS ---
DATE OF CONSULTATION: 11/13/2016 CHIEF COMPLAINT: Altered mental status. HISTORY OF PRESENT ILLNESS: The patient is a pleasant 86-year-old male who is being evaluated by the neurology service per the request of Dr. Valle for altered mental status. The patient was brought in to [facility] Emergency Room with confusion, and he was found to be febrile. His temperature was 101. A CT scan of the brain was done which showed no acute intracranial abnormalities. There was generalized atrophy and small vessel ischemic changes. His CBC showed no leukocytosis, but he did have anemia with a hemoglobin of 11.2 and hematocrit at 33.5. His MCV was elevated at 105. The patient does have history of end-stage renal disease and is on dialysis. His BUN and creatinine on arrival were 60 and 9.08, respectively. His urinalysis showed greater than 182 WBCs with large leukocyte esterase. At the time of my evaluation, the patient is being dialyzed. He has been started on IV antibiotics. I did review his EEG, which showed mild to moderate encephalopathy. The patient denies any headache. PAST MEDICAL HISTORY: 1. End-stage renal disease. 2. Dementia. 3. Hypertension. 4. History of colon cancer. 5. Coronary artery disease with stent placement. 6. Diabetes. 7. Anxiety disorder. 8. History of bowel resection. 9. Left upper extremity fistula placements. SOCIAL HISTORY: The patient denies any current tobacco, alcohol or drug use. He lives at [facility]. FAMILY HISTORY: Noncontributory. HOME MEDICATIONS: Reviewed in the chart. ALLERGIES: PENICILLIN and SULFA DRUGS. REVIEW OF SYSTEMS: As mentioned above; otherwise negative. PHYSICAL EXAM: Vital signs show a temperature of 96.8, pulse 64, respiration 16, blood pressure 119/48. GENERAL APPEARANCE: The patient is a well-developed elderly male who appears to be in no acute distress. HEENT: Normocephalic, atraumatic. No facial asymmetry is seen. Extraocular muscles are intact. Neck is supple with no masses felt. CARDIOVASCULAR: Regular rate and rhythm. ABDOMEN: Nontender, nondistended. Extremities showed trace edema with no clubbing seen. NEUROLOGICAL EXAM: The patient is awake and oriented to person only. Speech is mildly dysarthric. Language testing was normal. The patient does follow commands appropriately. No lateralizing weakness is seen, but he does appear to have mild generalized weakness. Sensory exam to light touch in bilateral upper extremities. There is slightly reduced light touch sensation in bilateral distal lower extremities. No seizure-like activity is seen. No facial asymmetry is noticed on cranial nerve testing. IMPRESSION: 1. Altered mental status. 2. Acute multifactorial encephalopathy. 3. End-stage renal disease, on dialysis. 4. Acute urinary tract infection. 5. History of Alzheimer's dementia. RECOMMENDATION: The patient's altered mental status is likely due to multifactorial encephalopathy, given his BUN level on arrival and given his acute urinary tract infection. He is being dialyzed at this time and he has been started on IV antibiotics with ceftriaxone. I did review his CT scan of the brain, which showed no acute intracranial abnormalities. His EEG was consistent with mild to moderate encephalopathy. Continue the rest of your current workup and management. I will continue to follow with you. Further recommendations to follow. Thank you for allowing me to participate in the care of your patient. If you have any questions, please feel free to contact me.
--- NOTE | 2016-11-13 23:34 | PN ---
DATE OF SERVICE: 11/13/2016 PRESENTING COMPLAINT: Lethargic. INTERVAL HISTORY: This is a patient who presented with a UTI and was having back pains. The patient was rather lethargic yesterday. CT scan was done that was negative for ( ). Patient also have been having incomplete hemodialysis for the last few sessions. Patient is having another dialysis today. Patient really has not eaten today. Woke up the patient and he did talk, but he said he was not really hungry. No focal symptoms. Review of systems could not be done; patient was rather lethargic. Current medications are reviewed that include the ceftriaxone. On examination, temperature 97.3, pulse 68, respiration 16, blood pressure 151/68, pulse ox 98% on room air. GENERAL APPEARANCE: Lying in bed, lethargic but arousable. Does answer questions, then dozes off. EYES: Pupils equal. Conjunctivae normal. NECK: JVD not raised. Mass not palpable. RESPIRATORY: Effort normal. LUNGS: Diminished breath sounds. CARDIOVASCULAR: First and second sounds normal. No edema. ABDOMEN: Soft, nontender. Liver and spleen not palpable. PSYCHIATRY: Lethargic, arousable. Does answer questions, then dozes off. NEUROLOGICAL: Moving all 4 limbs. INVESTIGATIONS: Potassium 4.2. BUN 48, creatinine 7.01. Accu-Cheks are noted. ASSESSMENT: 1. Acute metabolic encephalopathy; could be partly drug-induced. His Baclofen has been stopped now. Also felt to be from incomplete dialysis; getting dialyzed today. Stroke is felt to be unlikely in the absence of any focal symptoms, but Neurology was consulted; pending their input. 2. Acute severe urinary tract infection with sepsis, present on admission, growing Klebsiella oxytoca. Clinically this has improved. 3. End-stage kidney disease, on hemodialysis via left arm fistula. 4. Alzheimer's dementia. No behavioral disturbance. Late onset. 5. Essential hypertension. 6. Coronary artery disease with prior history of stent. 7. Diabetes mellitus, type 2, chronically on insulin. 8. Anxiety not otherwise specified. 9. Thoracolumbar spine arthritis with associated spasm. PLAN: Patient is off any sedative medications. Awaiting input from Neurology. This appears to be ( ) metabolic. Patient's daughter is not at the bedside. I told the nurse to encourage the patient to increase oral intake. Will cut back on the prednisone.
[2016-11-14] MEDS: CIPROFLOXACIN 0.3% OPHTH SOLN 2.5 ML BTL BOTH EYES SCH ×6 (04:23→23:40)
[2016-11-14 07:25] LABS: Glucose,Whole Blood 124 mg/dL (75-99)
[2016-11-14] MEDS: predniSONE 20 MG TAB PO SCH (08:24)
[2016-11-14] MEDS: NAPROXEN 250 MG TAB PO SCH ×2 (08:24→21:21)
[2016-11-14] MEDS: ASPIRIN 81 MG CHEW PO SCH (08:24)
[2016-11-14] MEDS: MAGNESIUM OXIDE 400 MG TAB PO SCH (08:24)
[2016-11-14] MEDS: CALCIUM ACETATE 667 MG CAP PO SCH ×3 (08:24→21:20)
[2016-11-14] MEDS: INSULIN DETEMIR 100 UNIT/ML 10 ML VIAL SQ SCH (08:25)
[2016-11-14] MEDS: INSULIN LISPRO (humaLOG) 300 UNIT/3 ML VIAL SQ SCH ×3 (08:25→20:17)
[2016-11-14] MEDS: ENOXAPARIN 30 MG/0.3 ML SYRINGE SQ SCH (08:25)
[2016-11-14] MEDS: LIDOCAINE-PRILOCAINE 2.5-2.5% CREAM 5 GM TUBE TOPICAL SCH (08:25)
--- NOTE | 2016-11-14 08:56 | EEG ---
DATE OF SERVICE: 11/13/2016 REASON FOR TESTING: Altered mental status. AGE: 86Y DESCRIPTION OF THE PROCEDURE: This EEG was performed using a 21-channel digital electroencephalograph, following the international 10 - 20 system. DESCRIPTION OF THE RECORDING: From the beginning of the tracing, and with the patient's eyes closed, the background rhythm was mostly consisting of 6 Hz theta frequency in the posterior occipital leads. No obvious asymmetry is seen. Frequent muscle artifacts are noticed. Photic stimulation was performed with a minimal driving response seen. No pathological waves were elicited. Hyperventilation was not performed. The patient remains awake throughout the tracing. No epileptiform discharges were seen. His EKG lead showed a regular rate and rhythm. INTERPRETATION: This awake EEG is abnormal due to the presence of generalized slowing of the background rhythm, mostly in the theta range. This is consistent with mild to moderate encephalopathy. No epileptiform discharges were seen. The absence of epileptiform discharges does not rule out the diagnosis of epilepsy, therefore, clinical correlation is recommended.
[2016-11-14 10:26] LABS: Basophils # (A) 0.1 k/uL (0-0.2); Basophils % (A) 1 %; CH 33.2; CHCM 32.8; Eosinophils # (A) 0.2 k/uL (0-0.7); Eosinophils % (A) 2 %; HCT 36.4 % (39.0-53.0); HGB 11.6 gm/dL (13.0-17.5); Luc # (Auto) 0.23; Luc % (Auto) 2; Lymphocytes # (A) 1.4 k/uL (1.0-4.8); Lymphocytes % (A) 13 %; MCH 32.3 pg (25.0-35.0); MCHC 31.8 g/dL (31.0-37.0); MCV 101.7 fL (80.0-100.0); Macrocytosis Slight; Mean Platelet Volume 8.1; Monocytes # (A) 0.9 k/uL (0-1.0); Monocytes % (A) 9 %; Neutrophils # (A) 7.5 k/uL (1.3-7.7); Neutrophils % (A) 73 %; RBC 3.58 m/uL (4.30-5.90); RDW 13.2 % (11.5-15.5); WBC 10.2 k/uL (3.8-10.6); WBC (Perox) 9.64
[2016-11-14 12:26] LABS: Glucose,Whole Blood 189 mg/dL (75-99)
[2016-11-14] MEDS: MULTIVITAMINS, THERA 1 EACH TAB PO SCH (13:04)
[2016-11-14] MEDS: CHOLECALCIFEROL 1,000 UNIT TAB PO SCH (13:04)
--- NOTE | 2016-11-14 15:23 | P.PN ---
Subjective Principal diagnosis: Patient is a pleasant 86-year-old male who is being followed by the neurology service for altered mental status. To [facility] emergency room with confusion and was found to be febrile. Computed tomography scan of the brain was done which showed no acute intracranial abnormalities. CT of the brain did show generalized atrophy and small vessel ischemic disease. Patient does have a history of end-stage renal disease and is on dialysis. Patient's BUN was 60 and creatinine was 9.08 on admission. Patient also had positive urinary tract infection on admission. Patient's daughter is at the bedside and states he is doing much better today then when he was admitted. Patient has been dialyzed twice and seems to be improving each time. Patient continues to be on IV antibiotics. His EEG did show mild to moderate encephalopathy. At the time of my evaluation, patient is resting comfortably in bed and appears to be in no acute distress. Objective - Vital Signs Vital signs: Vital Signs Temp 98.6 F 11/14/16 07:00 Pulse 80 11/14/16 07:00 Resp 20 11/14/16 07:00 BP 113/60 11/14/16 07:00 Pulse Ox 97 11/14/16 07:00 Intake & Output 11/13/16 11/14/16 11/14/16 18:59 06:59 18:59 Intake Total 50 200 50 Balance 50 200 50 Intake: IV 50 50 50 cefTRIAXone 1,000 mg In 50 50 50 Sodium Chloride 0.9% 50 ml @ 100 mls/hr IVPB Q12HR STEPHANIE Rx#:[id number] Oral 150 Other: Voiding Method Incontinent # Voids 0 0 - Exam PHYSICAL EXAM: GENERAL APPEARANCE: Patient is a well-developed, male who appears to be in no acute distress. HEENT: Normocephalic, atraumatic, no facial asymmetry is seen. Neck is supple with no masses felt. CARDIOVASCULAR: Regular rate and rhythm. ABDOMEN: Nontender, nondistended. EXTREMITIES: Show no edema or clubbing. NEUROLOGICAL EXAM: Patient is awake, alert, and oriented to self and place. Patient does not know what year this is. Speech and language are normal. Strength is 5/5 in all 4 extremities. Sensory exam to light touch is normal in all 4 extremities. No facial asymmetry is seen on cranial nerve testing. No tremors or seizure-like activity is noted. - Labs CBC & Chem 7: 11/14/16 07:58 11/13/16 09:19 Labs: Abnormal Lab Results - Last 24 Hours (Table) 11/13/16 11/13/16 11/14/16 Range/Units 16:42 21:48 07:23 RBC (4.30-5.90) m/uL Hgb (13.0-17.5) gm/dL Hct (39.0-53.0) % MCV (80.0-100.0) fL POC Glucose (mg/dL) 119 H 208 H 124 H (75-99) mg/dL 11/14/16 11/14/16 Range/Units 07:58 12:24 RBC 3.58 L (4.30-5.90) m/uL Hgb 11.6 L (13.0-17.5) gm/dL Hct 36.4 L (39.0-53.0) % MCV 101.7 H (80.0-100.0) fL POC Glucose (mg/dL) 189 H (75-99) mg/dL Assessment and Plan Plan: Impression: 1. Acute multifactorial encephalopathy 2. End-stage renal disease, on dialysis 3. Acute urinary tract infection 4. History of Alzheimer's dementia Recommendation: Patient's altered mental status is multifactorial. Patient had elevated BUN and creatinine on admission. Patient has been dialyzed with improvement in mentation. Patient also has urinary tract infection. As previously mentioned, his computed tomography scan of the brain showed no acute intracranial abnormalities in his EEG was consistent with mild to moderate encephalopathy. I believe he should continue to return to baseline as his metabolic status improves. Continue current management. Continue neurological checks. I will continue to follow with you on an as-needed basis. Feel free to call with any questions or concerns. I performed an examination of the patient and discussed the management with the RETURNED GOODS SORTER. I have reviewed the RETURNED GOODS SORTER notes and agree with the findings and plan of care.
[2016-11-14 17:21] LABS: Glucose,Whole Blood 141 mg/dL (75-99)
--- NOTE | 2016-11-14 20:10 | PN ---
Patient is seen for followup for end-stage renal disease. He was admitted to the hospital with altered mentation. His mentation has improved now. He has been receiving dialysis daily for the last 3 days. He has not received any significant pain medications. Patient also had a urinary tract infection, which is being treated. His daughter is present at bedside and she states that she would like further workup regarding the severe back pain and muscle spasm that he had been having as outpatient prior to admission. On examination, blood pressure is 113/60, heart rate 80 per minute. He is afebrile. EXAMINATION OF THE HEART: S1 and S2. EXAMINATION OF THE LUNGS: Bilateral breath sounds are heard. ABDOMEN: Soft, nontender. Examination of lower extremities shows no evidence of edema. BRICK MASON exam is grossly intact. Patient is moving all 4 extremities. He does recognize me. Labs show hemoglobin of 11.6 g/dL. Potassium was 4.2 yesterday. ASSESSMENT: 1. End-stage renal disease, on hemodialysis on a Saturday, Saturday, Saturday schedule. Patient will be dialyzed again today. He will be given a break on , which is tomorrow. 2. Altered mentation possibly related to underlying urinary tract infection, pain medications. Currently significantly improved. 3. History of severe back pain prior to admission. Patient's daughter is asking for further imaging studies. We can check a CT of his abdomen if not done previously. Upon review of his labs, I do see a thoracic lumbar spine CT in January of 2016 which did not reveal any significant abnormalities. 4. Chronic kidney disease bone mineral disorder. 5. Urinary tract infection with Klebsiella oxytoca, maintained on antibiotics and improved. PLAN: Hemodialysis today. Hold off on dialysis tomorrow. I will hold off on the CT scan, as patient did have a CT in January of 2016 which was unremarkable.
[2016-11-14 21:00] LABS: Glucose,Whole Blood 227 mg/dL (75-99)
[2016-11-14] MEDS: ATORVASTATIN 10 MG TAB PO SCH (21:20)
[2016-11-14] MEDS: LATANOPROST 0.005% OPHTH DROPS 2.5 ML BTL BOTH EYES SCH (21:21)
[2016-11-15] MEDS: CIPROFLOXACIN 0.3% OPHTH SOLN 2.5 ML BTL BOTH EYES SCH ×6 (04:20→23:48)
[2016-11-15 07:33] LABS: Glucose,Whole Blood 119 mg/dL (75-99)
[2016-11-15] MEDS: NAPROXEN 250 MG TAB PO SCH ×2 (08:06→20:56)
[2016-11-15] MEDS: AMOXIC-POT CLAV 500-125 MG 1 EACH TAB PO SCH (08:06)
[2016-11-15] MEDS: predniSONE 20 MG TAB PO SCH (08:06)
[2016-11-15] MEDS: ENOXAPARIN 30 MG/0.3 ML SYRINGE SQ SCH (08:06)
[2016-11-15] MEDS: LIDOCAINE-PRILOCAINE 2.5-2.5% CREAM 5 GM TUBE TOPICAL SCH (08:06)
[2016-11-15] MEDS: CALCIUM ACETATE 667 MG CAP PO SCH ×3 (08:06→17:42)
[2016-11-15] MEDS: INSULIN DETEMIR 100 UNIT/ML 10 ML VIAL SQ SCH (08:07)
[2016-11-15] MEDS: INSULIN LISPRO (humaLOG) 300 UNIT/3 ML VIAL SQ SCH ×3 (08:07→17:42)
[2016-11-15] MEDS: MAGNESIUM OXIDE 400 MG TAB PO SCH (08:08)
--- NOTE | 2016-11-15 08:53 | PN ---
DATE OF SERVICE: 11/14/2016 PRESENTING COMPLAINT: Tired. INTERVAL HISTORY: This patient presents with severe UTI, back pains and felt to have metabolic encephalopathy with incomplete dialysis, getting ultrafiltration today. Patient is far more doing better. Did eat really well. Pain is controlled, getting ultrafiltration today. Review of systems done for constitutional, cardiovascular, GI, pulmonary; relevant findings as above. Current medications are reviewed that include ceftriaxone. On examination, temperature 98.1, pulse 84, respiration 20, blood pressure 120/69, pulse ox 97% on 2 L. GENERAL APPEARANCE: Lying in bed, tired -appearing, more awake. EYES: Pupils equal. Conjunctivae normal. NECK: JVD not raised. Mass not palpable. Respiratory effort normal. LUNGS: Diminished breath sounds. CARDIOVASCULAR: First and second sounds normal, no edema. ABDOMEN: Soft, nontender. Liver and spleen not palpable. PSYCHIATRY: Awake. Answering questions. INVESTIGATIONS: White count 10.2, hemoglobin 11.6. Blood cultures remain negative. ASSESSMENT: 1. Acute metabolic encephalopathy, both from incomplete dialysis and infection from sepsis. 2. Acute severe urinary tract infection with sepsis on admission, growing Klebsiella oxytoca, clinically improving. 3. End-stage kidney disease on hemodialysis via left arm fistula. 4. Alzheimer's dementia, no behavior disturbance, late onset. 5. Essential hypertension. 6. Coronary artery disease with prior history of stent. 7. Diabetes mellitus type 2, currently on insulin. 8. Anxiety, not otherwise specified. 9. Thoracolumbar spine arthritis with associated spasm. PLAN: Patient is doing much better, tolerating a diet. Will switch the patient over to oral antibiotic.
[2016-11-15 11:34] LABS: Glucose,Whole Blood 150 mg/dL (75-99)
[2016-11-15] MEDS: CHOLECALCIFEROL 1,000 UNIT TAB PO SCH (13:49)
[2016-11-15] MEDS: MULTIVITAMINS, THERA 1 EACH TAB PO SCH (13:49)
--- NOTE | 2016-11-15 15:26 | PN ---
Patient is seen for follow-up for end-stage renal disease. He was admitted to the hospital with mental status changes, which has improved. He also had a urinary tract infection with Klebsiella oxytoca. On examination today patient's mentation is at baseline. He has improved significantly. Blood pressure is 118/59, heart rate 85 per minute. He is afebrile. Examination of the heart S1 and S2. Examination of the lungs: Bilateral breath sounds are heard. Abdomen is soft, nontender. Examination of lower extremities shows no evidence of edema. 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 Labs show hemoglobin 11.6 g/dL. Other labs are not available. ASSESSMENT: 1. End-stage renal disease on hemodialysis on a Saturday, Saturday, Saturday schedule. We will arrange for hemodialysis in a.m. 2. Encephalopathy, metabolic secondary to urinary tract infection as well as medications, currently significantly improved. 3. Dementia. Mentation is at baseline. 4. Coronary artery disease with previous coronary stent. 5. Urinary tract infection with Klebsiella oxytoca. PLAN: Hemodialysis in a.m. Possible discharge tomorrow.
[2016-11-15 16:54] LABS: Glucose,Whole Blood 197 mg/dL (75-99)
[2016-11-15] MEDS: ATORVASTATIN 10 MG TAB PO SCH (20:54)
[2016-11-15] MEDS: LATANOPROST 0.005% OPHTH DROPS 2.5 ML BTL BOTH EYES SCH (20:56)
[2016-11-15 21:04] LABS: Glucose,Whole Blood 291 mg/dL (75-99)
--- NOTE | 2016-11-15 22:11 | PN ---
DATE OF SERVICE: 11/15/2016 PRESENTING COMPLAINT: Doing better. INTERVAL HISTORY: This patient presented with severe UTI, back spasm, metabolic encephalopathy and also incomplete hemodialysis. Patient is doing much better, up and about, actually did walk in the hallway. Cheerful. Review of systems done for constitutional, cardiovascular, GI, pulmonary; relevant findings as above. Current medications are reviewed that include Augmentin. On examination, temperature 96.1, pulse 85, respiratory rate 16, blood pressure 118/59, pulse ox 95% on 2 liters. GENERAL APPEARANCE: Lying in bed, awake. EYES: Pupils equal. Conjunctivae normal. NECK: JVD not raised. Mass not palpable. RESPIRATORY: Effort normal. LUNGS: Diminished breath sounds. CARDIOVASCULAR: First and second sounds normal. No edema. ABDOMEN: Soft, nontender. Liver and spleen not palpable. PSYCHIATRY: Awake, answering questions appropriately. Cheerful. INVESTIGATIONS: Accu-Cheks are noted. ASSESSMENT: 1. Acute metabolic encephalopathy from an incomplete hemodialysis and infection/sepsis much improved. 2. Acute severe urinary tract infection with sepsis on admission, growing Klebsiella Oxytoca. 3. End-stage kidney disease on hemodialysis via left arm fistula. 4. Alzheimer's dementia, no behavior disturbance. 5. Essential hypertension. 6. Coronary artery disease with prior history of stent. 7. Diabetes mellitus type 2 currently on insulin. 8. ( ). 9. Thoracolumbar spine arthritis with associated spasm. PLAN: Patient doing much better, discussed in detail with daughter. Patient will get dialyzed tomorrow and then go home.
[2016-11-16] MEDS: CIPROFLOXACIN 0.3% OPHTH SOLN 2.5 ML BTL BOTH EYES SCH ×4 (05:22→17:01)
[2016-11-16 07:34] LABS: Glucose,Whole Blood 130 mg/dL (75-99)
[2016-11-16] MEDS: INSULIN LISPRO (humaLOG) 300 UNIT/3 ML VIAL SQ SCH ×3 (08:08→18:14)
[2016-11-16] MEDS: INSULIN DETEMIR 100 UNIT/ML 10 ML VIAL SQ SCH (09:21)
[2016-11-16] MEDS: LIDOCAINE-PRILOCAINE 2.5-2.5% CREAM 5 GM TUBE TOPICAL SCH (09:25)
[2016-11-16] MEDS: ENOXAPARIN 30 MG/0.3 ML SYRINGE SQ SCH (09:25)
[2016-11-16] MEDS: CALCIUM ACETATE 667 MG CAP PO SCH ×3 (09:25→18:14)
[2016-11-16] MEDS: predniSONE 20 MG TAB PO SCH (09:26)
[2016-11-16] MEDS: AMOXIC-POT CLAV 500-125 MG 1 EACH TAB PO SCH (09:26)
[2016-11-16] MEDS: NAPROXEN 250 MG TAB PO SCH (09:26)
[2016-11-16] MEDS: ASPIRIN 81 MG CHEW PO SCH (09:27)
[2016-11-16] MEDS: MAGNESIUM OXIDE 400 MG TAB PO SCH (09:27)
[2016-11-16 12:11] LABS: Glucose,Whole Blood 126 mg/dL (75-99)
[2016-11-16] MEDS: CHOLECALCIFEROL 1,000 UNIT TAB PO SCH (12:45)
[2016-11-16] MEDS: MULTIVITAMINS, THERA 1 EACH TAB PO SCH (12:45)
--- NOTE | 2016-11-16 13:30 | PN ---
Patient is seen for followup for end-stage renal disease. He is currently comfortable, awake, not in any acute distress. Mentation is back to baseline. There are plans for possible discharge today. On examination, blood pressure is 150/62, heart rate 74 per minute. He is afebrile. Patient is euvolemic with no evidence of edema bilateral lower extremities. Labs are not available from today. Previous potassium was 4.2 on 11/13. ASSESSMENT: 1. End-stage renal disease on hemodialysis on a Saturday, Saturday, Saturday schedule. 2. Altered mentation secondary to urinary tract infection versus medications, currently significantly improved. 3. Urinary tract infection with Klebsiella oxytoca maintained on antibiotics in the form of Augmentin now. 4. Back spasms seems to have resolved now. Patient is on Naprosyn, need to watch carefully for gastritis versus gastrointestinal bleed. 5. 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 PLAN: Patient can be discharged today after dialysis.
[2016-11-16] MEDS ORDERED: GELATIN SPONGE,ABSORB (SMALL) 1 EACH SPONGE ONE (15:00)
[2016-11-16 16:17] VITALS: BP 110/61; PULSE 84; RESP 20; TEMP 98.4
[2016-11-16 17:09] LABS: Glucose,Whole Blood 163 mg/dL (75-99)
--- NOTE | 2016-11-16 20:00 | DS ---
DATE OF ADMISSION: 11/09/2016 DATE OF DISCHARGE: 11/16/2016 FINAL DIAGNOSES 1. Acute metabolic encephalopathy from incomplete hemodialysis and infectious sepsis, present on admission. 2. Acute severe urinary tract infection with sepsis, present at admission growing Klebsiella Oxytoca. 3. End-stage kidney disease on hemodialysis, via left arm fistula. 4. Alzheimer's dementia, late onset. 5. Essential hypertension. 6. Coronary artery disease with prior history of stent. 7. Diabetes mellitus type 2, currently on insulin. 8. Thoracolumbar spine arthritis with associated spasms. 9. Anxiety, not otherwise specified. HOSPITAL COURSE: This patient presented with back spasms and found to have a UTI with sepsis, causing him ( ). Patient had been having incomplete dialysis as an outpatient. Patient has received antibiotics and aggressive dialysis was carried. At the time of discharge, the patient was alert and oriented x3. The pain had completely gone. The patient walking up and down the hallway. CONSULTATION: Dr. Tay from nephrology and Dr. Ocasio from neurology. On examination oriented x3. Mood and affect normal. LUNGS: Good air entry. DISCHARGE MEDICATIONS: 1. Aspirin 81 mg 48 hours. 2. Lipitor 10 mg q.h.s. 3. PhosLo 1334 milligrams a.c. t.i.d. 4. Cinnamon 500 milligrams q.h.s. 5. Flexeril 5 mg p.o. b.i.d. p.r.n. for spasm. 6. Fish oil 1200 mg p.o. daily. 7. Levemir 35 units subcu in the morning. 8. Emla cream 2.5% topical Saturday, Saturday and Saturday. 9. Multivitamin 1 tablet p.o. daily. 10. Vitamin D3 1000 units p.o. daily. 11. Magnesium oxide 40 mg daily. 12. CoQ10 30 mg a day. 13. Augmentin 500, 1 tablet daily. Eight tablets. 14. Ciloxan 0.3% one drop to both eyes q.4 hours. 15. Xalatan 0.005% one drop to both eyes at bedtime. 16. Naproxen 500 mg p.o. b.i.d. 20 tablets. 17. Prilosec 20 mg before breakfast. 18. Prednisone 20 mg a day for 5 days. DISPOSITION: Home. Follow up with Dr. Marshall on 11/21/2016. Follow up with hemodialysis schedule.
== END 2016-11-16 19:28 | disposition home health service (06) | DRG 871 ==
LOC: EC 16:58 → 4MS4W 19:35
PROVIDERS: ADMIT Hospitalist; ATTEND Hospitalist
PROC: 3E0234Z Introduction of Serum, Toxoid and Vaccine into Muscle, Percutaneous Approach (ICD-10-PCS; principal; 2016-11-11)
PROC: 5A1D60Z (ICD-10-PCS; 2016-11-12)
DX: A41.9 Sepsis, unspecified organism (principal); N18.6 End stage renal disease; G93.41 Metabolic encephalopathy; E88.89 Other specified metabolic disorders; I12.0 Hypertensive chronic kidney disease with stage 5 chronic kidney disease or end stage renal disease; N39.0 Urinary tract infection, site not specified; B96.1 Klebsiella pneumoniae [K. pneumoniae] as the cause of diseases classified elsewhere; E11.22 Type 2 diabetes mellitus with diabetic chronic kidney disease; Z23 Encounter for immunization; E87.5 Hyperkalemia; H10.9 Unspecified conjunctivitis; G89.29 Other chronic pain; E83.39 Other disorders of phosphorus metabolism; G30.1 Alzheimer's disease with late onset; F02.80 Dementia in other diseases classified elsewhere, unspecified severity, without behavioral disturbance, psychotic disturbance, mood disturbance, and anxiety; M46.85 Other specified inflammatory spondylopathies, thoracolumbar region; M62.838 Other muscle spasm; F41.9 Anxiety disorder, unspecified; I25.10 Atherosclerotic heart disease of native coronary artery without angina pectoris; E78.5 Hyperlipidemia, unspecified; D63.8 Anemia in other chronic diseases classified elsewhere; Z90.49 Acquired absence of other specified parts of digestive tract; Z85.038 Personal history of other malignant neoplasm of large intestine; Z87.891 Personal history of nicotine dependence; Z88.2 Allergy status to sulfonamides; Z88.0 Allergy status to penicillin; Z88.1 Allergy status to other antibiotic agents; Z95.5 Presence of coronary angioplasty implant and graft; Z93.3 Colostomy status; Z99.2 Dependence on renal dialysis; Z79.4 Long term (current) use of insulin; Z79.82 Long term (current) use of aspirin; Z79.899 Other long term (current) drug therapy
CPT/HCPCS: 36415; 70450; 71020; 80048; 80053; 81001; 83036; 83605; 85025; 86308; 87040; 87077; 87086; 87186; 87340; 87502; 90935; 95816; 96361; 96365; 96367; 96375; 99285

== ENCOUNTER 2017-12-15 11:16 | Emergency (ER) | payer MEDICARE, OTHER ==
[2017-12-15] MEDS ORDERED: KETOROLAC 30 MG/ML 1 ML VIAL IVP STA (11:26)
--- NOTE | 2017-12-15 11:29 | ED ---
Back Pain HPI - General Stated Complaint: Back Pain Time Seen by Provider: 12/15/17 11:16 Source: patient, RN notes reviewed - History of Present Illness Initial Comments: This is a 87-year-old male with a history that includes renal failure with dialysis a colostomy liver failure kidney stones and chronic back pain apparently has had crampy type of back spasms for the past 2 days. The last briefly every 15-30 seconds. Patient does have dementia so is a poor historian respect to allow the information. Is related to paramedics by a caregiver. No trauma reported no fevers chills sweats patient does still produce urine he does seem to be in smaller amounts he's had no cough or other symptoms. MD Complaint: back pain - Related Data Home Medications Medication Instructions Recorded Confirmed Aspirin EC [Ecotrin Low Dose] 81 mg PO Q48H 02/08/16 12/15/17 Atorvastatin [Lipitor] 10 mg PO HS 02/08/16 12/15/17 Cinnamon Bark [Cinnamon] 500 mg PO HS 02/08/16 12/15/17 Insulin Detemir [Levemir Flextouch] 35 units SQ QAM 02/08/16 12/15/17 Multivitamins, Thera [Multivitamin 1 tab PO DAILY 02/08/16 12/15/17 (formulary)] Cholecalciferol [Vitamin D3] 1,000 unit PO DAILY 10/20/16 12/15/17 Magnesium Oxide [Mag-Ox] 400 mg PO DAILY 10/20/16 12/15/17 Ubidecarenone [Co Q-10] 30 mg PO DAILY 10/20/16 12/15/17 Insulin Aspart [NovoLOG 4 unit SQ AC-BRKFST 12/15/17 12/15/17 (formulary)] Insulin Aspart [NovoLOG 5 unit SQ AC-LUNCH 12/15/17 12/15/17 (formulary)] Insulin Aspart [NovoLOG 5 unit SQ AC-SUPPER 12/15/17 12/15/17 (formulary)] Levofloxacin [Levaquin] 500 mg PO Q48H 12/15/17 12/15/17 [place] K 1 tab PO DAILY 12/15/17 12/15/17 Prosynbiotic 1 tab PO BID 12/15/17 12/15/17 Previous Rx's Medication Instructions Recorded Omeprazole [PriLOSEC] 20 mg PO AC-BRKFST #30 cap 11/16/16 methylPREDNISolone Dose Pack 4 mg PO DIRECTED #21 package 12/15/17 [Medrol Dose Pack] Allergies Allergy/AdvReac Type Severity Reaction Status Date / Time Penicillins Allergy Unknown Verified 12/15/17 12:19 Childhood Sulfa (Sulfonamide Allergy Unknown Verified 12/15/17 12:19 Antibiotics) Childhood Review of Systems ROS Statement: Those systems with pertinent positive or pertinent negative responses have been documented in the HPI. ROS Other: All systems not noted in ROS Statement are negative. Limitations: ROS unobtainable due to patients medical condition Past Medical History Past Medical History: Dementia, Dialysis, Hyperlipidemia, Hypertension Additional Past Medical History / Comment(s): kidney failure, colon ca, dialysis mwf History of Any Multi-Drug Resistant Organisms: None Reported Date of last positivie culture/infection: None MDRO Source:: None Past Surgical History: Bowel Resection, Heart Catheterization With Stent Additional Past Surgical History / Comment(s): colostomy 2010 Past Anesthesia/Blood Transfusion Reactions: No Reported Reaction Date of Last Stent Placement:: 2009 Past Psychological History: No Psychological Hx Reported Smoking Status: Former smoker Past Alcohol Use History: None Reported Past Drug Use History: None Reported General Exam - General Exam Comments Initial Comments: This a well-developed well-nourished awake alert but somewhat confused male General appearance: alert, in no apparent distress Head exam: Present: atraumatic, normocephalic, normal inspection Eye exam: Present: normal appearance, PERRL, EOMI. Absent: scleral icterus, conjunctival injection, periorbital swelling ENT exam: Present: mucous membranes dry Neck exam: Present: normal inspection. Absent: tenderness, meningismus, lymphadenopathy Respiratory exam: Present: normal lung sounds bilaterally. Absent: respiratory distress, wheezes, rales, rhonchi, stridor Cardiovascular Exam: Present: regular rate, normal rhythm, normal heart sounds. Absent: systolic murmur, diastolic murmur, rubs, gallop, clicks GI/Abdominal exam: Present: soft, normal bowel sounds, other (Colostomy is present). Absent: distended, tenderness, guarding, rebound, rigid Rectal exam: Present: deferred Extremities exam: Present: full ROM, normal capillary refill, other (Dialysis fistula noted in the left upper extremity there is a palpable thrill). Absent: tenderness, pedal edema, joint swelling, calf tenderness Back exam: Present: normal inspection Neurological exam: Present: alert, altered, CN II-XII intact Psychiatric exam: Present: normal affect, anxious Skin exam: Present: warm, dry, intact, normal color. Absent: rash Course Vital Signs 12/15/17 12/15/17 12/15/17 11:30 13:24 15:38 Temperature 97.4 F L 97.2 F L Pulse Rate 86 75 82 Respiratory 20 18 18 Rate Blood Pressure 119/58 104/55 123/67 O2 Sat by Pulse 96 94 L 100 Oximetry Medical Decision Making - Medical Decision Making I did discuss findings with the patient family members. Patient is back to his usual self. He'll be discharged she is able take Tylenol for pain he's had trouble in the past with Flexeril and the pain medications we did discuss a course of Medrol which may help with his back pain and spasm they're willing to try this. The patient does have dialysis scheduled for tomorrow morning he will continue with this. - Lab Data Result diagrams: 12/15/17 11:33 12/15/17 11:33 Lab Results 12/15/17 12/15/17 12/15/17 Range/Units 11:33 11:33 11:33 WBC 8.8 (3.8-10.6) k/uL RBC 3.45 L (4.30-5.90) m/uL Hgb 11.3 L (13.0-17.5) gm/dL Hct 32.1 L (39.0-53.0) % MCV 93.0 (80.0-100.0) fL MCH 32.7 (25.0-35.0) pg MCHC 35.1 (31.0-37.0) g/dL RDW 13.0 (11.5-15.5) % Plt Count 212 (150-450) k/uL Neutrophils % 76 % Lymphocytes % 12 % Monocytes % 7 % Eosinophils % 3 % Basophils % 0 % Neutrophils # 6.7 (1.3-7.7) k/uL Lymphocytes # 1.1 (1.0-4.8) k/uL Monocytes # 0.6 (0-1.0) k/uL Eosinophils # 0.2 (0-0.7) k/uL Basophils # 0.0 (0-0.2) k/uL Sodium 142 (137-145) mmol/L Potassium 4.1 (3.5-5.1) mmol/L Chloride 96 L (98-107) mmol/L Carbon Dioxide 29 (22-30) mmol/L Anion Gap 17 mmol/L BUN 39 H (9-20) mg/dL Creatinine 7.60 H* (0.66-1.25) mg/dL Est GFR (CKD-EPI)AfAm 7 (>60 ml/min/1.73 sqM) Est GFR (CKD-EPI)NonAf 6 (>60 ml/min/1.73 sqM) Glucose 154 H (74-99) mg/dL Calcium 9.4 (8.4-10.2) mg/dL Magnesium 2.0 (1.6-2.3) mg/dL Total Bilirubin 0.5 (0.2-1.3) mg/dL AST 18 (17-59) U/L ALT 21 (21-72) U/L Alkaline Phosphatase 64 (38-126) U/L Total Creatine Kinase 106 (55-170) U/L CK-MB (CK-2) 1.1 (0.0-2.4) ng/mL CK-MB (CK-2) Rel Index 1.0 Total Protein 6.5 (6.3-8.2) g/dL Albumin 3.7 (3.5-5.0) g/dL Urine Color Urine Appearance (Clear) Urine pH (5.0-8.0) Ur Specific [place] (1.001-1.035) Urine Protein (Negative) Urine Glucose (UA) (Negative) Urine Ketones (Negative) Urine Blood (Negative) Urine Nitrite (Negative) Urine Bilirubin (Negative) Urine Urobilinogen (<2.0) mg/dL Ur Leukocyte Esterase (Negative) Urine RBC (0-5) /hpf Urine WBC (0-5) /hpf Hyaline Casts (0-2) /lpf 12/15/17 Range/Units 15:39 WBC (3.8-10.6) k/uL RBC (4.30-5.90) m/uL Hgb (13.0-17.5) gm/dL Hct (39.0-53.0) % MCV (80.0-100.0) fL MCH (25.0-35.0) pg MCHC (31.0-37.0) g/dL RDW (11.5-15.5) % Plt Count (150-450) k/uL Neutrophils % % Lymphocytes % % Monocytes % % Eosinophils % % Basophils % % Neutrophils # (1.3-7.7) k/uL Lymphocytes # (1.0-4.8) k/uL Monocytes # (0-1.0) k/uL Eosinophils # (0-0.7) k/uL Basophils # (0-0.2) k/uL Sodium (137-145) mmol/L Potassium (3.5-5.1) mmol/L Chloride (98-107) mmol/L Carbon Dioxide (22-30) mmol/L Anion Gap mmol/L BUN (9-20) mg/dL Creatinine (0.66-1.25) mg/dL Est GFR (CKD-EPI)AfAm (>60 ml/min/1.73 sqM) Est GFR (CKD-EPI)NonAf (>60 ml/min/1.73 sqM) Glucose (74-99) mg/dL Calcium (8.4-10.2) mg/dL Magnesium (1.6-2.3) mg/dL Total Bilirubin (0.2-1.3) mg/dL AST (17-59) U/L ALT (21-72) U/L Alkaline Phosphatase (38-126) U/L Total Creatine Kinase (55-170) U/L CK-MB (CK-2) (0.0-2.4) ng/mL CK-MB (CK-2) Rel Index Total Protein (6.3-8.2) g/dL Albumin (3.5-5.0) g/dL Urine Color Yellow Urine Appearance Clear (Clear) Urine pH 7.0 (5.0-8.0) Ur Specific [place] 1.012 (1.001-1.035) Urine Protein 2+ H (Negative) Urine Glucose (UA) Negative (Negative) Urine Ketones Negative (Negative) Urine Blood Negative (Negative) Urine Nitrite Negative (Negative) Urine Bilirubin Negative (Negative) Urine Urobilinogen <2.0 (<2.0) mg/dL Ur Leukocyte Esterase Small H (Negative) Urine RBC 2 (0-5) /hpf Urine WBC 18 H (0-5) /hpf Hyaline Casts 1 (0-2) /lpf - Radiology Data Radiology results: report reviewed (I did review the imaging and report no acute findings.), image reviewed Disposition Clinical Impression: Mechanical back pain Disposition: HOME SELF-CARE Condition: Good Instructions: Acute Low Back Pain (ED) Prescriptions: methylPREDNISolone Dose Pack [Medrol Dose Pack] 4 mg PO DIRECTED #21 package Referrals: None,Stated [REFERRING] - 1-2 days
[2017-12-15 11:43] LABS: Basophils % (A) 0 %; Eosinophils # (A) 0.2 k/uL (0-0.7); Eosinophils % (A) 3 %; HCT 32.1 % (39.0-53.0); HGB 11.3 gm/dL (13.0-17.5); Lymphocytes # (A) 1.1 k/uL (1.0-4.8); Lymphocytes % (A) 12 %; MCH 32.7 pg (25.0-35.0); MCHC 35.1 g/dL (31.0-37.0); Mean Platelet Volume 7.3; Monocytes # (A) 0.6 k/uL (0-1.0); Monocytes % (A) 7 %; Neutrophils # (A) 6.7 k/uL (1.3-7.7); Neutrophils % (A) 76 %; Platelet Count 212 k/uL (150-450); RBC 3.45 m/uL (4.30-5.90); WBC 8.8 k/uL (3.8-10.6)
[2017-12-15 11:52] LABS: Albumin 3.7 g/dL (3.5-5.0); Calcium 9.4 mg/dL (8.4-10.2); Potassium 4.1 mmol/L (3.5-5.1); Total Bilirubin 0.5 mg/dL (0.2-1.3); Total Protein 6.5 g/dL (6.3-8.2)
[2017-12-15 12:15] LABS: Creatine Kinase MB 1.1 ng/mL (0.0-2.4)
[2017-12-15] MEDS ORDERED: MORPHINE SULFATE/PF 10MG/10ML VL IVP STA (12:20)
[2017-12-15] MEDS ORDERED: LORazepam 2 MG/ML INJ IV STA (12:20)
[2017-12-15 13:27] VITALS: RESP 18; TEMP 97.2
--- NOTE | 2017-12-15 14:35 | XR ---
EXAMINATION TYPE: XR abdomen acute w cxr , 4 VIEWS DATE OF EXAM ORDERED: 12/15/2017 HISTORY: Pain. COMPARISON: None. FINDINGS: Heart size is upper limits of normal. The lungs are clear. Pleural spaces are clear. Within the abdomen, there is mild gaseous distention of stomach. There is no evidence of obstruction or free air. There are phleboliths within the pelvis. IMPRESSION: NO ACUTE ABDOMINAL OR THORACIC ABNORMALITY.
--- NOTE | 2017-12-15 14:36 | XR ---
EXAMINATION TYPE: XR lumbar spine 2 or 3V , 3 VIEWS DATE OF EXAM ORDERED: 12/15/2017 HISTORY: Pain. COMPARISON: None. FINDINGS: Vertebral body height and alignment are maintained. There is no spondylolysis or spondylol isthesis. There is disc space loss at L4-5 and L5-S1. There is minor hypertrophic spondylosis at T12- L1 and L1-2. The pedicles are intact. There is spondylosis deformans at T12-L1 and L1-2. IMPRESSION: 1. NO ACUTE OSSEOUS LESION. 2. DEGENERATIVE CHANGE.
[2017-12-15] MEDS ORDERED: LIDOCAINE URO-JET JELLY 2% 5 ML KIT URETHRAL ONE (15:29)
[2017-12-15 15:38] VITALS: BP 123/67; PULSE 82
--- NOTE | 2017-12-15 15:50 | CT ---
EXAMINATION TYPE: CT abdomen pelvis wo con DATE OF EXAM: 12/15/2017 COMPARISON: CT 10/19/2011 HISTORY: back pain, history of renal stones CT DLP: 548.8 mGycm Automated exposure control for dose reduction was used. TECHNIQUE: Helical acquisition of images was performed from the lung bases through the pelvis. FINDINGS: LUNG BASES: No significant abnormality is appreciated. LIVER/GB: No significant abnormality is appreciated. PANCREAS: No significant abnormality is seen. SPLEEN: No significant abnormality is seen. ADRENALS: No significant abnormality is seen. KIDNEYS: No significant abnormality is seen. FREE AIR: No free air is visualized RETROPERITONEAL ADENOPATHY: None visualized REPRODUCTIVE ORGANS: No significant abnormality is seen URINARY BLADDER: No significant abnormality is seen. PELVIC ADENOPATHY: None visualized. OSSEOUS STRUCTURES: No significant abnormality is seen. BOWEL: No significant abnormality is seen. OTHER: None. IMPRESSION: NO ACUTE PROCESS, CT WITHOUT CONTRAST
[2017-12-15 15:56] LABS: Appearance,Urine Clear (Clear); Bilirubin,Urine Negative (Negative); Blood,Urine Negative (Negative); Color,Urine Yellow; Glucose,Urine (UA) Negative (Negative); Hyaline Casts,Urine 1 /lpf (0-2); Ketones,Urine Negative (Negative); Leukocyte Esterase,Urine Small (Negative); Nitrite,Urine Negative (Negative); Protein,Urine 2+ (Negative); RBC,Urine 2 /hpf (0-5); Specific Gravity,Urine 1.012 (1.001-1.035); Urobilinogen,Urine <2.0 mg/dL (<2.0); WBC,Urine 18 /hpf (0-5)
--- NOTE | 2017-12-19 08:30 | CDI ---
Documentation Clarification OP Dear Dr. Jose Ruiz Please do addendum to ED report for missing procedure done related to lidocaine HCl administration. Thank you, Mahendra Stephens Academic Affairs Coordinator If you have any questions, please contact Director Risk at [phone] [facility]
== END 2017-12-15 16:28 | disposition home or self-care (01) ==
LOC: EC 11:16
DX: M54.9 Dorsalgia, unspecified (principal); E78.5 Hyperlipidemia, unspecified; I10 Essential (primary) hypertension; Z85.038 Personal history of other malignant neoplasm of large intestine; Z95.5 Presence of coronary angioplasty implant and graft; Z87.891 Personal history of nicotine dependence; Z79.82 Long term (current) use of aspirin; Z79.4 Long term (current) use of insulin; Z79.899 Other long term (current) drug therapy; Z88.0 Allergy status to penicillin; Z88.2 Allergy status to sulfonamides; Z99.2 Dependence on renal dialysis
CPT/HCPCS: 99284; 96374; 96375 ×2; 36415; 80053; 82550; 82553; 83735; 85025; 81001; 74022; 72100; 74176; J2060; J1885; J2270

== ENCOUNTER 2018-01-31 13:13 | Inpatient (IN) | payer MEDICARE, OTHER ==
[2018-01-31] MEDS ORDERED: methylPREDNISolone SOD SUCCI 125 MG/2 ML VIAL IV STA (13:51)
[2018-01-31] MEDS ORDERED: IPRATROPIUM-ALBUTEROL 3 ML NEB INHALATION STA (13:51)
[2018-01-31] MEDS ORDERED: AZITHROMYCIN 500 MG in SODIUM CHLORIDE 0.9% 250 ML IVPB STA ×2 (13:52→16:14)
[2018-01-31] MEDS ORDERED: ASPIRIN 81 MG PO STA (13:53)
[2018-01-31 14:06] LABS: Basophils % (A) 0 %; Eosinophils # (A) 0.5 k/uL (0-0.7); Eosinophils % (A) 5 %; HCT 36.4 % (39.0-53.0); HGB 12.1 gm/dL (13.0-17.5); Lymphocytes # (A) 1.9 k/uL (1.0-4.8); Lymphocytes % (A) 19 %; MCH 31.4 pg (25.0-35.0); MCHC 33.2 g/dL (31.0-37.0); MCV 94.6 fL (80.0-100.0); Mean Platelet Volume 7.2; Monocytes # (A) 0.7 k/uL (0-1.0); Monocytes % (A) 7 %; Neutrophils # (A) 6.6 k/uL (1.3-7.7); Neutrophils % (A) 67 %; Platelet Count 226 k/uL (150-450); RBC 3.85 m/uL (4.30-5.90); RDW 14.9 % (11.5-15.5); WBC 9.9 k/uL (3.8-10.6)
--- NOTE | 2018-01-31 14:07 | ED ---
SOB HPI - General Chief Complaint: Shortness of Breath Stated Complaint: Resp Distress Time Seen by Provider: 01/31/18 13:45 Source: patient, EMS Mode of arrival: EMS Limitations: no limitations - History of Present Illness Initial Comments: This 87-year-old white male presents with caregiver with a complaint of some shortness of breath and chest pain. He barely has had a cough as well as shortness breath for the last 1 week. There's been no actual production. He denies any known fever. He saw his primary care physician this morning and was diagnosed with bronchitis and placed on a Zithromax Z-NATALIA which she has not started as of yet. He went to dialysis this afternoon. During dialysis, he started complaining of some chest pain and was sent to the ER. He states that he had a left sided pressure type pain which was nonradiating. It is resolved at this time. He denies any known previous pulmonary or cardiac disease. He states that he feels fine at this time. There is no leg pain or swelling. No other complaints or modifying factors. - Related Data Home Medications Medication Instructions Recorded Confirmed Aspirin EC [Ecotrin Low Dose] 81 mg PO Q48H 02/08/16 01/31/18 Atorvastatin [Lipitor] 5 mg PO HS 02/08/16 01/31/18 Cinnamon Bark [Cinnamon] 500 mg PO HS 02/08/16 01/31/18 Insulin Detemir [Levemir Flextouch] 35 units SQ QAM 02/08/16 01/31/18 Multivitamins, Thera [Multivitamin 1 tab PO DAILY 02/08/16 01/31/18 (formulary)] Cholecalciferol [Vitamin D3] 1,000 unit PO DAILY 10/20/16 01/31/18 Magnesium Oxide [Mag-Ox] 400 mg PO DAILY 10/20/16 01/31/18 Ubidecarenone [Co Q-10] 30 mg PO DAILY 10/20/16 01/31/18 Insulin Aspart [NovoLOG 4 unit SQ AC-BRKFST 12/15/17 01/31/18 (formulary)] Insulin Aspart [NovoLOG 5 unit SQ AC-LUNCH 12/15/17 01/31/18 (formulary)] Insulin Aspart [NovoLOG 5 unit SQ AC-SUPPER 12/15/17 01/31/18 (formulary)] [place] K 1 tab PO DAILY 12/15/17 01/31/18 Prosynbiotic 1 tab PO BID 12/15/17 01/31/18 Previous Rx's Medication Instructions Recorded Omeprazole [PriLOSEC] 20 mg PO AC-BRKFST #30 cap 11/16/16 Allergies Allergy/AdvReac Type Severity Reaction Status Date / Time Penicillins Allergy Unknown Verified 01/31/18 14:03 Childhood Sulfa (Sulfonamide Allergy Unknown Verified 01/31/18 14:03 Antibiotics) Childhood Review of Systems ROS Statement: Those systems with pertinent positive or pertinent negative responses have been documented in the HPI. ROS Other: All systems not noted in ROS Statement are negative. Past Medical History Past Medical History: Dementia, Dialysis, Hyperlipidemia, Hypertension Additional Past Medical History / Comment(s): kidney failure, colon ca, dialysis mwf History of Any Multi-Drug Resistant Organisms: None Reported Date of last positivie culture/infection: None MDRO Source:: None Past Surgical History: Bowel Resection, Heart Catheterization With Stent Additional Past Surgical History / Comment(s): colostomy 2010 Past Anesthesia/Blood Transfusion Reactions: No Reported Reaction Date of Last Stent Placement:: 2009 Past Psychological History: No Psychological Hx Reported Smoking Status: Former smoker Past Alcohol Use History: Occasional Past Drug Use History: None Reported General Exam - General Exam Comments Initial Comments: GENERAL: The patient is well nourished and well hydrated. VITAL SIGNS: Heart rate, blood pressure, respiratory rate reviewed as recorded in nurse's notes. EYES: Pupils are round and reactive. Extraocular movements are intact. No conjunctival / lid redness or swelling. ENT: No external evidence of injury, swelling, or ecchymosis. Airway is patent. Throat is clear. NECK: Nontender. No swelling or evidence of injury. No subcutaneous emphysema. Trachea is midline. No thyroid mass. HEART: Regular rate and rhythm. Good peripheral pulses. LUNGS/CHEST: Mild wheezing noted bilaterally. No ecchymosis, subcutaneous emphysema, or tenderness. ABDOMEN: Abdomen soft without tenderness. No palpable masses or organomegaly. No peritoneal signs. No abdominal wall swelling or ecchymosis. EXTREMITIES: No extremity tenderness. Normal muscle tone and function. No thoracolumbar tenderness. NEUROLOGIC: Sensation is grossly intact. Cranial nerve exam reveals face is symmetrical, tongue is midline, speech is clear. SKIN: No abrasions or ecchymosis is noted. No induration or masses noted. PSYCHIATRIC: Alert and oriented. Appropriate behavior and judgment. Limitations: no limitations Course Vital Signs 01/31/18 01/31/18 01/31/18 13:16 14:09 14:19 Temperature 97.4 F L Pulse Rate 77 76 73 Respiratory 20 Rate Blood Pressure 156/67 O2 Sat by Pulse 97 Oximetry 01/31/18 01/31/18 14:26 15:00 Temperature Pulse Rate 82 78 Respiratory 20 18 Rate Blood Pressure 136/62 141/65 O2 Sat by Pulse 98 98 Oximetry Medical Decision Making - Medical Decision Making The patient was seen and examined. All diagnostics were reviewed. The patient did have an EKG which shows a normal sinus rhythm at a rate of 78. There is no ST elevation identified. There is some nonspecific T wave changes noted in the anteroseptal leads. The patient's FL interval is 214, QRS duration is 78, and the QTC intervals 435. An IV is started and he receives some Solu-Medrol. He also receives a DuoNeb breathing treatment. The laboratory does show an elevation of the d-dimer as well as elevation of his renal function studies. The x-ray of the chest shows some mild central venous congestion. He had a computed tomography angiogram of the thorax to rule out pulmonary embolism after being cleared by Dr. Tay. Does not show any evidence of pulmonary embolism. It did show some suspicions of bronchitis. It also showed a degree of pneumobilia. They also do note a 9 mm right basilar pulmonary nodule that needs follow-up. There is possible pulmonary arterial hypertension. Overall, the exact cause of his chest pain is not definitively determined and is felt as though the possibility of acute coronary syndrome is possible that he should her admission to the hospital. He also does have a degree of bronchospasm and bronchitis and will be treated for this. Case will be discussed with internal medicine in the near future. - Lab Data Result diagrams: 01/31/18 13:22 01/31/18 13:22 Lab Results 01/31/18 01/31/18 01/31/18 Range/Units 13:22 13:22 13:22 WBC 9.9 (3.8-10.6) k/uL RBC 3.85 L (4.30-5.90) m/uL Hgb 12.1 L (13.0-17.5) gm/dL Hct 36.4 L (39.0-53.0) % MCV 94.6 (80.0-100.0) fL MCH 31.4 (25.0-35.0) pg MCHC 33.2 (31.0-37.0) g/dL RDW 14.9 (11.5-15.5) % Plt Count 226 (150-450) k/uL Neutrophils % 67 % Lymphocytes % 19 % Monocytes % 7 % Eosinophils % 5 % Basophils % 0 % Neutrophils # 6.6 (1.3-7.7) k/uL Lymphocytes # 1.9 (1.0-4.8) k/uL Monocytes # 0.7 (0-1.0) k/uL Eosinophils # 0.5 (0-0.7) k/uL Basophils # 0.0 (0-0.2) k/uL PT (9.0-12.0) sec INR (<1.2) APTT (22.0-30.0) sec D-Dimer (<0.60) mg/L FEU Sodium 145 (137-145) mmol/L Potassium 4.1 (3.5-5.1) mmol/L Chloride 96 L (98-107) mmol/L Carbon Dioxide 30 (22-30) mmol/L Anion Gap 19 mmol/L BUN 26 H (9-20) mg/dL Creatinine 5.70 H* (0.66-1.25) mg/dL Est GFR (CKD-EPI)AfAm 10 (>60 ml/min/1.73 sqM) Est GFR (CKD-EPI)NonAf 8 (>60 ml/min/1.73 sqM) Glucose 88 (74-99) mg/dL Calcium 9.6 (8.4-10.2) mg/dL Total Bilirubin 0.6 (0.2-1.3) mg/dL AST 23 (17-59) U/L ALT 23 (21-72) U/L Alkaline Phosphatase 95 (38-126) U/L Total Creatine Kinase 60 (55-170) U/L CK-MB (CK-2) 0.7 (0.0-2.4) ng/mL CK-MB (CK-2) Rel Index 1.2 Troponin I 0.025 (0.000-0.034) ng/mL NT-Pro-B Natriuret Pep pg/mL Total Protein 7.5 (6.3-8.2) g/dL Albumin 4.5 (3.5-5.0) g/dL 01/31/18 01/31/18 Range/Units 13:22 13:22 WBC (3.8-10.6) k/uL RBC (4.30-5.90) m/uL Hgb (13.0-17.5) gm/dL Hct (39.0-53.0) % MCV (80.0-100.0) fL MCH (25.0-35.0) pg MCHC (31.0-37.0) g/dL RDW (11.5-15.5) % Plt Count (150-450) k/uL Neutrophils % % Lymphocytes % % Monocytes % % Eosinophils % % Basophils % % Neutrophils # (1.3-7.7) k/uL Lymphocytes # (1.0-4.8) k/uL Monocytes # (0-1.0) k/uL Eosinophils # (0-0.7) k/uL Basophils # (0-0.2) k/uL PT 10.3 (9.0-12.0) sec INR 1.1 (<1.2) APTT 24.2 (22.0-30.0) sec D-Dimer 4.25 H (<0.60) mg/L FEU Sodium (137-145) mmol/L Potassium (3.5-5.1) mmol/L Chloride (98-107) mmol/L Carbon Dioxide (22-30) mmol/L Anion Gap mmol/L BUN (9-20) mg/dL Creatinine (0.66-1.25) mg/dL Est GFR (CKD-EPI)AfAm (>60 ml/min/1.73 sqM) Est GFR (CKD-EPI)NonAf (>60 ml/min/1.73 sqM) Glucose (74-99) mg/dL Calcium (8.4-10.2) mg/dL Total Bilirubin (0.2-1.3) mg/dL AST (17-59) U/L ALT (21-72) U/L Alkaline Phosphatase (38-126) U/L Total Creatine Kinase (55-170) U/L CK-MB (CK-2) (0.0-2.4) ng/mL CK-MB (CK-2) Rel Index Troponin I (0.000-0.034) ng/mL NT-Pro-B Natriuret Pep 1260 pg/mL Total Protein (6.3-8.2) g/dL Albumin (3.5-5.0) g/dL Disposition Clinical Impression: Bronchitis, Dyspnea, Hypertension, Chest pain, Unstable angina, Pneumobilia, Lung nodule, Elevated d-dimer Disposition: ADMITTED IP TO THIS HOSP Condition: Fair Is patient prescribed a controlled substance at d/c from ED?: No Time of Disposition: 16:07 Decision Date: 01/31/18 Decision Time: 16:07
[2018-01-31 14:17] LABS: Albumin 4.5 g/dL (3.5-5.0); Calcium 9.6 mg/dL (8.4-10.2); Potassium 4.1 mmol/L (3.5-5.1); Total Bilirubin 0.6 mg/dL (0.2-1.3); Total Protein 7.5 g/dL (6.3-8.2)
[2018-01-31 14:18] LABS: INR 1.1 (<1.2); Partial Thromboplastin Time 24.2 sec (22.0-30.0); Prothrombin Time 10.3 sec (9.0-12.0)
[2018-01-31 14:22] LABS: D-Dimer 4.25 mg/L FEU (<0.60)
[2018-01-31] MEDS ORDERED: RX INFO: IV CONTRAST WAS GIVEN 1 EACH MISC MISCELLANE PRN (14:23)
[2018-01-31 14:37] LABS: Creatine Kinase MB 0.7 ng/mL (0.0-2.4); Troponin I 0.025 ng/mL (0.000-0.034)
--- NOTE | 2018-01-31 15:21 | XR ---
EXAMINATION TYPE: XR chest 2V DATE OF EXAM: 01/31/2018 COMPARISON: 12/15/2017 TECHNIQUE: PA and lateral views submitted. HISTORY: Shortness of breath FINDINGS: The lungs are clear and there is no pneumothorax, pleural effusion, or focal pneumonia. Atheroscler otic change aorta. Dialysis catheter seen. Diffuse osteopenia and arthropathy of the shoulders. Mild central interstitial prominence. Degenerative change of the spine. IMPRESSION: 1. COPD. Mild central venous congestion noted.
--- NOTE | 2018-01-31 15:43 | CT ---
EXAMINATION TYPE: CT angio chest DATE OF EXAM: 01/31/2018 COMPARISON: 12/01/2013 HISTORY: Difficulty breathing during dialysis treatment today CT DLP: 639 mGycm. Automated Exposure Control for Dose Reduction was Utilized. CONTRAST: CTA scan of the thorax is performed with IV Contrast, patient injected with 70 mL of Isovue 370, pulm onary embolism protocol. MIP Images are created on CT scanner and reviewed. FINDINGS: LUNGS: The lungs are grossly clear, there is no concerning parenchymal mass or nodule identified. B ibasilar cylindrical bronchiectasis with peribronchial cuffing is seen. Right basilar pulmonary nodul e measures 9 mm on series 11 image 108. This may partially relate to atelectasis given the surroundin g atelectasis and pleural parenchymal scarring. Multifocal basilar pleural-parenchymal scarring is id entified. Subtle thickening of the intralobular septa suggests a component of mild fluid overload. Th ere is no pleural effusion or pneumothorax seen. The tracheobronchial tree is patent. 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 There is satisfactory enhancement of the pulmonary artery and its branches, there is no CT evidence for pulmo nary embolism. There are no greater than 1 cm hilar or mediastinal lymph nodes. Cardiac size is uppe r limits of normal without pericardial effusion. The descending thoracic aorta is upper limits of nor mal size measuring 3.0 cm. Ascending thoracic aorta is within normal limits measuring 3.6 cm. Right a nd left main pulmonary arteries are enlarged. 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 There is bilateral symmetric mild retroareolar gynecomastia seen. There is pneumobilia present, new from the prior 2013. This could be postprocedura l in the appropriate clinical setting. Cystic appearing left renal lesions were also visualized on th e exam of 2013 with few new renal sinus cyst partially visualized. Probable right renal cysts are als o seen. There is cortical renal atrophy. 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 Mild multilevel degenerative changes of the tho racic spine are noted. Midthoracic hemangioma is seen. IMPRESSION: 1. No evidence of pulmonary embolus. 2. Findings suggesting mild fluid overload that may be on a cardiogenic or noncardiogenic basis. 3. Bibasilar bronchiectasis with peribronchial cuffing that could be infectious such as bronchitis or reactive. 4. 9 mm right basilar pulmonary nodule although this is adjacent areas of atelectasis and pleural par enchymal scarring and could represent confluent atelectasis therefore short-term follow-up is recomme nded in 3 months to ensure stability or evaluate for resolution. 5. Enlargement of the right and left main pulmonary artery suggesting underlying pulmonary arterial h ypertension. 6. Interval development of pneumobilia, poorly with prior procedures.
[2018-01-31] MEDS ORDERED: cefTRIAXone IN SWFI 1,000 MG/10 ML SYRINGE IVP STA (16:08)
[2018-01-31] MEDS ORDERED: NON-FORMULARY DRUG (Aspirin Ec 81 MG) PO SCH (16:15)
[2018-01-31] MEDS: INSULIN ASPART 100 UNIT/ML 1 ML 10 ML VIAL SQ SCH ×2 (18:51→21:20)
[2018-01-31] MEDS: IPRATROPIUM-ALBUTEROL 3 ML NEB INHALATION PRN (19:59)
[2018-01-31 20:40] LABS: Glucose,Whole Blood 295 mg/dL (75-99)
[2018-01-31] MEDS ORDERED: NON-FORMULARY DRUG (Cinnamon Bark [Cinnamon] 500 MG) PO SCH (21:00)
[2018-01-31] MEDS: LACTOBACILLUS ACIDOPH & BULGAR 1 EACH PACKET PO SCH (21:10)
[2018-01-31] MEDS: ATORVASTATIN 10 MG TAB PO SCH (21:10)
[2018-01-31] MEDS: methylPREDNISolone SOD SUCCI 125 MG/2 ML VIAL IV SCH ×2 (21:12→23:06)
[2018-01-31 22:48] VITALS: BMI 27.6
[2018-02-01 02:09] LABS: Hemoglobin A1C 5.8 % (4.0-6.0)
[2018-02-01 05:54] LABS: Glucose,Whole Blood 197 mg/dL (75-99)
[2018-02-01] MEDS: methylPREDNISolone SOD SUCCI 125 MG/2 ML VIAL IV SCH ×2 (06:45→12:33)
[2018-02-01] MEDS: PANTOPRAZOLE 40 MG TABLET PO SCH (06:46)
[2018-02-01] MEDS: INSULIN ASPART 100 UNIT/ML 1 ML 10 ML VIAL SQ SCH ×7 (06:47→21:17)
[2018-02-01] MEDS: INSULIN DETEMIR 100 UNIT/ML 10 ML VIAL SQ SCH (08:07)
--- NOTE | 2018-02-01 08:15 | P.CRDCN ---
History of Present Illness Consult date: 02/01/18 Requesting physician: Derrick Valle Consult reason: chest pain Chief complaint: Rib Pain History of present illness: This is a pleasant 87-year-old gentleman with history of hypertension , diabetes, hyperlipidemia, end-stage renal disease on dialysis, prior history of smoking, history of colon cancer, status post surgery, colostomy in place , dementia, who apparently was at dialysis yesterday, was complaining of some discomfort in his left chest area and for this reason was advised to come to the hospital for further evaluation. There is a questionable history of prior stents, patient denies recalling having any history of heart problems. Patient states he has a pain in the left side of his chest area, over one of his ribs. He states that when he presses on the rib area very tender. He denies any shortness of breath, no chest pressure or heaviness. His EKG on arrival here showed a normal sinus rhythm with ST-T wave changes noted in the anterior leads , inferior Q waves noted. Chest x-ray showed COPD with mild central venous congestion. CTA of the chest was performed which did not reveal any evidence for pulmonary embolism. Findings suggest mild fluid overload. Bibasilar bronchiectasis that could be infectious such as bronchitis. A 4.9 mm right basilar pulmonary nodule also noted. Enlargement of the right and left main pulmonary artery suggesting underlying pulmonary arterial hypertension and interval development of pneumobilia blood pressure on arrival here 156/60 with a heart rate in the 70s, 97% on 2 L of oxygen. White blood cell count 9.9, hemoglobin 12.1, platelet count 226. D-dimer 4.2. Sodium 145, potassium 4.1, BUN 26, creatinine 5.7. BNP level 1260, troponin 0.025. At the time of my examination this morning, patient denies any shortness of breath, does complain of mild pain on palpating the left upper rib area. Past Medical History Past Medical History: Dementia, Dialysis, Hyperlipidemia, Hypertension Additional Past Medical History / Comment(s): kidney failure, colon ca, dialysis mwf History of Any Multi-Drug Resistant Organisms: None Reported Date of last positivie culture/infection: None MDRO Source:: None Past Surgical History: Bowel Resection, Heart Catheterization With Stent Additional Past Surgical History / Comment(s): colostomy 2010 Past Anesthesia/Blood Transfusion Reactions: No Reported Reaction Date of Last Stent Placement:: 2009 Past Psychological History: No Psychological Hx Reported Smoking Status: Former smoker Past Alcohol Use History: Occasional Past Drug Use History: None Reported - Past Family History Father Family Medical History: No Reported History Mother Family Medical History: No Reported History Medications and Allergies Home Medications Medication Instructions Recorded Confirmed Type Aspirin EC [Ecotrin Low Dose] 81 mg PO Q48H 02/08/16 01/31/18 History Atorvastatin [Lipitor] 5 mg PO HS 02/08/16 01/31/18 History Cinnamon Bark [Cinnamon] 500 mg PO HS 02/08/16 01/31/18 History Insulin Detemir [Levemir Flextouch] 35 units SQ QAM 02/08/16 01/31/18 History Multivitamins, Thera [Multivitamin 1 tab PO DAILY 02/08/16 01/31/18 History (formulary)] Cholecalciferol [Vitamin D3] 1,000 unit PO DAILY 10/20/16 01/31/18 History Magnesium Oxide [Mag-Ox] 400 mg PO DAILY 10/20/16 01/31/18 History Ubidecarenone [Co Q-10] 30 mg PO DAILY 10/20/16 01/31/18 History Omeprazole [PriLOSEC] 20 mg PO AC-BRKFST #30 cap 11/16/16 01/31/18 Rx Insulin Aspart [NovoLOG 4 unit SQ AC-BRKFST 12/15/17 01/31/18 History (formulary)] Insulin Aspart [NovoLOG 5 unit SQ AC-LUNCH 12/15/17 01/31/18 History (formulary)] Insulin Aspart [NovoLOG 5 unit SQ AC-SUPPER 12/15/17 01/31/18 History (formulary)] [place] K 1 tab PO DAILY 12/15/17 01/31/18 History Prosynbiotic 1 tab PO BID 12/15/17 01/31/18 History Allergies Allergy/AdvReac Type Severity Reaction Status Date / Time Penicillins Allergy Unknown Verified 01/31/18 14:03 Childhood Sulfa (Sulfonamide Allergy Unknown Verified 01/31/18 14:03 Antibiotics) Childhood Physical Exam Vitals: Vital Signs Temp Pulse Pulse Resp BP BP Pulse Ox 02/01/18 03:00 97.8 F 92 18 123/58 94 L 01/31/18 23:00 97.8 F 96 18 131/62 95 01/31/18 22:43 98.7 F 90 18 144/65 99 01/31/18 20:10 92 01/31/18 20:01 92 01/31/18 20:00 98.7 F 90 18 144/65 99 01/31/18 18:45 97.8 F 93 20 155/78 97 01/31/18 15:00 78 18 141/65 98 01/31/18 14:26 82 20 136/62 98 01/31/18 14:19 73 01/31/18 14:09 76 01/31/18 13:16 97.4 F L 77 20 156/67 97 Intake and Output 01/31/18 02/01/18 02/01/18 22:59 06:59 14:59 Other: # Voids 1 Weight 87.5 kg 87.5 kg PHYSICAL EXAMINATION: HEENT: Head is atraumatic, normocephalic. Pupils equal, round. Neck is supple. There is elevated jugular venous pressure. HEART EXAMINATION: Heart S1 and S2 systolic murmur is heard. CHEST EXAMINATION: Lungs reveal bibasilar crackles. ABDOMEN: Soft, nontender. Ostomy bag in place. Bowel sounds are heard. No organomegaly noted. EXTREMITIES: 2+ peripheral pulses with no evidence of peripheral edema and no calf tenderness noted. NEUROLOGIC patient is awake, alert and oriented -3. . Results 01/31/18 13:22 01/31/18 13:22 Cardiac Enzymes 01/31/18 01/31/18 Range/Units 13:22 13:22 AST 23 (17-59) U/L CK-MB (CK-2) 0.7 (0.0-2.4) ng/mL Troponin I 0.025 (0.000-0.034) ng/mL Coagulation 01/31/18 Range/Units 13:22 PT 10.3 (9.0-12.0) sec APTT 24.2 (22.0-30.0) sec CBC 01/31/18 Range/Units 13:22 WBC 9.9 (3.8-10.6) k/uL RBC 3.85 L (4.30-5.90) m/uL Hgb 12.1 L (13.0-17.5) gm/dL Hct 36.4 L (39.0-53.0) % Plt Count 226 (150-450) k/uL Comprehensive Metabolic Panel 01/31/18 Range/Units 13:22 Sodium 145 (137-145) mmol/L Potassium 4.1 (3.5-5.1) mmol/L Chloride 96 L (98-107) mmol/L Carbon Dioxide 30 (22-30) mmol/L BUN 26 H (9-20) mg/dL Creatinine 5.70 H* (0.66-1.25) mg/dL Glucose 88 (74-99) mg/dL Calcium 9.6 (8.4-10.2) mg/dL AST 23 (17-59) U/L ALT 23 (21-72) U/L Alkaline Phosphatase 95 (38-126) U/L Total Protein 7.5 (6.3-8.2) g/dL Albumin 4.5 (3.5-5.0) g/dL Current Medications Generic Name Dose Route Start Last Admin Trade Name Freq PRN Reason Stop Dose Admin Albuterol/Ipratropium 3 ml 01/31/18 16:08 01/31/18 19:59 Duoneb 0.5 Mg-3 Mg/3 Ml Soln INHALATION 3 ml RT-Q4H PRN Administration Shortness Of Breath Or Wheezing Aspirin 81 mg 02/02/18 09:00 Aspirin PO Q48H [facility] Atorvastatin Calcium 5 mg 01/31/18 21:00 01/31/18 21:10 Lipitor PO 5 mg HS STEPHANIE Administration Ceftriaxone Sodium 1,000 mg 02/01/18 09:00 Rocephin IVP DAILY [facility] Cholecalciferol 1,000 unit 02/01/18 12:00 Vitamin D3 PO DAILY@1200 [facility] Enoxaparin Sodium 30 mg 02/01/18 09:00 Lovenox SQ DAILY [facility] Azithromycin 500 mg/ Sodium 250 mls @ 125 mls/hr 02/01/18 12:00 Chloride IVPB DAILY@1200 [facility] Insulin Aspart 4 unit 02/01/18 07:30 02/01/18 06:47 Novolog SQ 4 unit AC-BRKFST STEPHANIE Administration Insulin Aspart 5 unit 02/01/18 12:30 Novolog SQ AC-LUNCH [facility] Insulin Aspart 5 unit 01/31/18 17:30 01/31/18 18:51 Novolog SQ Not Given AC-SUPPER [facility] Insulin Aspart 0 unit 01/31/18 21:00 02/01/18 06:47 Novolog SQ 2 unit ACHS [facility] Administration Protocol Insulin Detemir 35 unit 02/01/18 09:00 Levemir SQ QAM [facility] Lactobacillus Acidoph/[place] 1 each 01/31/18 21:00 01/31/18 21:10 Lactinex PO 1 each BID STEPHANIE Administration Magnesium Oxide 400 mg 02/01/18 09:00 Mag-Ox PO DAILY [facility] Methylprednisolone Sodium Succinate 60 mg 01/31/18 20:00 02/01/18 06:45 Solu-Medrol IV 60 mg Q6HR STEPHANIE Administration Miscellaneous Information 1 each 01/31/18 14:23 Rx Info: Iv Contrast Was Given MISCELLANE 02/02/18 14:23 DAILY PRN Per Protocol Multivitamins 1 each 02/01/18 12:00 Theragran PO DAILY@1200 STEPHANIE Pantoprazole Sodium 40 mg 02/01/18 07:30 02/01/18 06:46 Protonix PO 40 mg AC-BRKFST STEPHANIE Administration Intake and Output 01/31/18 02/01/18 02/01/18 22:59 06:59 14:59 Other: # Voids 1 Weight 87.5 kg 87.5 kg 01/31/18 13:22 01/31/18 13:22 EKG Interpretations (text) EKG shows normal sinus rhythm with inferior Q waves, T wave inversion noted in the anterior leads. Assessment and Plan Plan: Assessment and plan #1 acute left-sided chest pain, appears musculoskeletal in nature. Troponin 0.025. EKG shows normal sinus rhythm with inferior Q waves and T-wave inversion in the anterior leads. #2 hypertension #3 diabetes #4 hyperlipidemia # 5 end-stage renal disease on hemodialysis #6 history of colon cancer status post surgery, patient has a colostomy in place. #7 recent cough, possible bronchitis, currently on antibiotics. #8 crushable history of coronary artery disease with prior stent placement. #9 abnormal d-dimer, CT of the chest negative for pulmonary embolism. 9 mm right basilar pulmonary nodule noted. Plan Will obtain an echocardiogram with Doppler study as well as 2 subsequent troponins. We will also speak with family members to attempt to gain more clear prior history. Continue baby aspirin, Lipitor. Further recommendations will be made based on these findings and the patient's clinical course. DNP note has been reviewed, I agree with a documented findings and plan of care. Patient was seen and examined.
[2018-02-01] MEDS: ENOXAPARIN 30 MG/0.3 ML SYRINGE SQ SCH (08:16)
[2018-02-01] MEDS: LACTOBACILLUS ACIDOPH & BULGAR 1 EACH PACKET PO SCH ×2 (08:16→19:39)
[2018-02-01] MEDS: CHOLECALCIFEROL 1,000 UNIT TAB PO SCH (08:17)
[2018-02-01] MEDS: MAGNESIUM OXIDE 400 MG TAB PO SCH (08:17)
[2018-02-01] MEDS: MULTIVITAMINS, THERA 1 EACH TAB PO SCH (08:17)
[2018-02-01] MEDS: IPRATROPIUM-ALBUTEROL 3 ML NEB INHALATION PRN ×3 (08:31→15:49)
[2018-02-01] MEDS ORDERED: cefTRIAXone IN SWFI 1,000 MG/10 ML SYRINGE IVP SCH (09:00)
[2018-02-01] MEDS ORDERED: OMEGA K PO SCH (09:00)
[2018-02-01] MEDS ORDERED: NON-FORMULARY DRUG (Ubidecarenone [Co Q-10] 30 MG) PO SCH (09:00)
--- NOTE | 2018-02-01 09:20 | P.NPCON ---
History of Present Illness - Reason for Consult end stage renal disease - History of Present Illness Reason for consultation: End-stage renal disease History of present illness: Patient is a 87-year-old male seen in consultation for end-stage renal disease. He is maintained on hemodialysis on a Saturday schedule via left upper extremity AV fistula. Patient states he's been having a nonproductive cough and was recently given a prescription for Z-Timo. However the patient did not start the antibiotics up until yesterday. When he went for hemodialysis yesterday he developed acute onset left sided chest pain and dyspnea and was subsequently sent to the hospital. He underwent a CTA which revealed no evidence of pulmonary embolus. There was mild fluid overload. He was also noted to have a 9 mm right-sided pulmonary nodule. He is currently undergoing hemodialysis. He is tolerating the procedure well. Oral intake is good. Denies fever or chills. No vomiting or diarrhea. His dyspnea is improved. Denies any active chest pain. He is maintained on IV steroids as well as antibiotics. Vital signs are stable. General: The patient appeared well nourished and normally developed. HEENT: Head exam is unremarkable. Neck is without jugular venous distension. LUNGS: Lungs are clear to auscultation and percussion. Breath sounds decreased. HEART: Rate and Rhythm are regular. First and second heart sounds normal. No murmurs, rubs or gallops. ABDOMEN: Abdominal exam reveals normal bowel sounds. Non-tender and non- distended. No evidence of peritonitis. EXTREMITITES: No clubbing, cyanosis, or edema. Past Medical History Past Medical History: Dementia, Dialysis, Hyperlipidemia, Hypertension Additional Past Medical History / Comment(s): kidney failure, colon ca, dialysis mwf History of Any Multi-Drug Resistant Organisms: None Reported Date of last positivie culture/infection: None MDRO Source:: None Past Surgical History: Bowel Resection, Heart Catheterization With Stent Additional Past Surgical History / Comment(s): colostomy 2010 Past Anesthesia/Blood Transfusion Reactions: No Reported Reaction Date of Last Stent Placement:: 2009 Past Psychological History: No Psychological Hx Reported Smoking Status: Former smoker Past Alcohol Use History: Occasional Past Drug Use History: None Reported - Past Family History Father Family Medical History: No Reported History Mother Family Medical History: No Reported History Medications and Allergies Home Medications Medication Instructions Recorded Confirmed Type Cinnamon Bark [Cinnamon] 500 mg PO HS 02/08/16 01/31/18 History RX: Aspirin EC [Ecotrin Low Dose] 81 mg PO Q48H 02/08/16 01/31/18 History RX: Atorvastatin [Lipitor] 5 mg PO HS 02/08/16 01/31/18 History RX: Insulin Detemir [Levemir 35 units SQ QAM 02/08/16 01/31/18 History Flextouch] RX: Multivitamins, Thera 1 tab PO DAILY 02/08/16 01/31/18 History [Multivitamin (formulary)] RX: Cholecalciferol [Vitamin D3] 1,000 unit PO DAILY 10/20/16 01/31/18 History RX: Magnesium Oxide [Mag-Ox] 400 mg PO DAILY 10/20/16 01/31/18 History RX: Ubidecarenone [Co Q-10] 30 mg PO DAILY 10/20/16 01/31/18 History Omeprazole [PriLOSEC] 20 mg PO AC-BRKFST #30 cap 11/16/16 01/31/18 Rx Insulin Aspart [NovoLOG 4 unit SQ AC-BRKFST 12/15/17 01/31/18 History (formulary)] Insulin Aspart [NovoLOG 5 unit SQ AC-LUNCH 12/15/17 01/31/18 History (formulary)] Insulin Aspart [NovoLOG 5 unit SQ AC-SUPPER 12/15/17 01/31/18 History (formulary)] Carson K 1 tab PO DAILY 12/15/17 01/31/18 History Prosynbiotic 1 tab PO BID 12/15/17 01/31/18 History Allergies Allergy/AdvReac Type Severity Reaction Status Date / Time Penicillins Allergy Unknown Verified 01/31/18 14:03 Childhood Sulfa (Sulfonamide Allergy Unknown Verified 01/31/18 14:03 Antibiotics) Childhood Physical Exam Vitals: Vital Signs Temp Pulse Pulse Resp BP BP Pulse Ox 02/01/18 08:52 80 02/01/18 08:33 88 02/01/18 08:00 97.7 F 94 18 147/64 92 L 02/01/18 03:00 97.8 F 92 18 123/58 94 L 01/31/18 23:00 97.8 F 96 18 131/62 95 01/31/18 22:43 98.7 F 90 18 144/65 99 01/31/18 20:10 92 01/31/18 20:01 92 01/31/18 20:00 98.7 F 90 18 144/65 99 01/31/18 18:45 97.8 F 93 20 155/78 97 01/31/18 15:00 78 18 141/65 98 01/31/18 14:26 82 20 136/62 98 01/31/18 14:19 73 01/31/18 14:09 76 01/31/18 13:16 97.4 F L 77 20 156/67 97 Intake and Output 01/31/18 02/01/18 02/01/18 22:59 06:59 14:59 Other: # Voids 1 Weight 87.5 kg 87.5 kg Results - Lab Results Most recent lab results Calcium 9.6 mg/dL (8.4-10.2) 01/31/18 13:22 01/31/18 13:22 01/31/18 13:22 Assessment and Plan Plan: Assessment: 1. End-stage renal disease maintained on hemodialysis on a Saturday schedule via left upper extremity AV fistula. 2. Dyspnea secondary to bronchitis. Mild vascular congestion noted on chest x- ray and CAT scan. 3. Insulin-dependent diabetes mellitus. 4. 9 mm right-sided pulmonary nodule. This will need to be followed up outpatient. Plan: Currently seen while undergoing hemodialysis since he missed yesterday's treatment. Next treatment on Saturday. Check phosphorus level. Follow-up echocardiogram results. Thank you for the consultation. I will continue to follow the patient with you during his hospital stay.
[2018-02-01 11:46] LABS: Glucose,Whole Blood 110 mg/dL (75-99)
[2018-02-01] MEDS ORDERED: AZITHROMYCIN 500 MG in SODIUM CHLORIDE 0.9% 250 ML IVPB SCH (12:00)
--- NOTE | 2018-02-01 13:44 | ECHOF ---
Referral Reason:chest pain MEASUREMENTS -------- HEIGHT: 177.8 cm WEIGHT: 87.1 kg BP: 123/58 RVIDd: 3.1 cm (< 3.3) IVSd: 1.3 cm (0.6 - 1.1) LVIDd: 4.8 cm (3.9 - 5.3) LVPWd: 1.3 cm (0.6 - 1.1) IVSs: 2.0 cm LVIDs: 3.0 cm LVPWs: 1.9 cm LA Diam: 3.2 cm (2.7 - 3.8) Ao Diam: 3.2 cm (2.0 - 3.7) AV Cusp: 2.2 cm (1.5 - 2.6) MV EXCURSION: 15.662 mm (> 18.000) MV EF SLOPE: 45 mm/s (70 - 150) EPSS: 0.3 cm MV E Alex: 1.06 m/s MV DecT: 245 ms MV A Alex: 1.41 m/s MV E/A Ratio: 0.75 AV maxP.26 mmHg AV meanP.22 mmHg FINDINGS -------- Sinus rhythm. This was a technically adequate study. This was a technically difficult study with suboptimal views . The left ventricular size is normal. There is mild concentric left ventricular hypertrophy. Overa ll left ventricular systolic function is normal with, an EF between 55 - 60 %. The right ventricle is normal in size. The left atrium was not well visualized. The right atrium was not well visualized. There is mild aortic valve sclerosis. The mitral valve leaflets are mildly thickened. Trace tricuspid regurgitation present. There is no pulmonic regurgitation present. CONCLUSIONS -------- 1. Sinus rhythm. 2. This was a technically adequate study. 3. This was a technically difficult study with suboptimal views. 4. The left ventricular size is normal. 5. There is mild concentric left ventricular hypertrophy. 6. Overall left ventricular systolic function is normal with, an EF between 55 - 60 %. 7. The right ventricle is normal in size. 8. The left atrium was not well visualized. 9. The right atrium was not well visualized. 10. There is mild aortic valve sclerosis. 11. The mitral valve leaflets are mildly thickened. 12. Trace tricuspid regurgitation present. 13. There is no pulmonic regurgitation present. CASINO SHIFT MANAGER: Ayesha Levy RDCS
[2018-02-01 16:24] LABS: Hepatitis B Surface AB- Quant 74.9 mIU/mL
[2018-02-01 16:31] LABS: Glucose,Whole Blood 264 mg/dL (75-99)
--- NOTE | 2018-02-01 18:13 | HP ---
HISTORY AND PHYSICAL DATE OF SERVICE: 02/01/2018 PRESENTING COMPLAINT: Cough, short of breath, chest pain. HISTORY OF PRESENTING COMPLAINT: This is a very pleasant 87-year-old patient with a rather extensive medical history. Patient's chronic stable medical conditions include end-stage kidney disease, on hemodialysis via left arm fistula, Alzheimer's dementia, hypertension, coronary artery disease, diabetes, osteoarthritis. Patient uses a walker. Patient has home health 3 times a day. Patient developed a cough, slight congestion. No sputum. No fever. He went to see his family doctor, Dr. Marshall, and was prescribed antibiotic for bronchitis. Subsequently patient went down for his dialysis. Then he was having sharp pain in the left lower sternal border, especially with coughing. Denied any fever. Appetite is maintained. Patient from dialysis was sent down to the hospital. Chest x-ray and CT scan showed evidence of pulmonary edema and patient was admitted for the same. Early this morning the patient did get hemodialysis and breathing significantly improved. The patient states his appetite is good. No fever. No edema. REVIEW OF SYSTEMS: CONSTITUTIONAL: Tired. HEENT: Decreased hearing. RESPIRATORY: As above. CARDIOVASCULAR: As above. GASTROINTESTINAL: None. GENITOURINARY: None. MUSCULOSKELETAL: Arthritic pain in the joints. DERMATOLOGICAL: None. HEMATOLOGICAL: None. LYMPHATICS: None. PSYCHIATRY: Forgetful. NEUROLOGICAL: None. PAST MEDICAL HISTORY: 1. Anxiety. 2. Thoracolumbar spine arthritis. 3. Diabetes mellitus, type 2. 4. Coronary artery disease with stent. 5. Hypertension. 6. Alzheimer's dementia. 7. End-stage kidney disease, on hemodialysis. 8. Colon cancer. PAST SURGICAL HISTORY: 1. Cardiac cath with stent. 2. Colostomy in 2010 with bowel resection. SOCIAL HISTORY: Lives alone, has a caregiver who comes in 3 times a day. FAMILY HISTORY: Reviewed; noncontributory to presentation. HOME MEDICATIONS: 1. CO-Q10 30 mg a day. 2. Prosynbiotic 1 tablet p.o. b.i.d. 3. Prilosec 20 mg with breakfast. 4. [place]-3 one tablet p.o. daily. 5. Multivitamin 1 tablet p.o. daily. 6. Magnesium oxide 400 mg p.o. daily. 7. Levemir 35 units subcutaneously in the morning. 8. NovoLog 5 units with supper, lunch and breakfast. 9. Cinnamon 500 mg at bedtime. 10.Vitamin D3 1000 units p.o. daily. 11.Lipitor 5 mg p.o. at bedtime. 12.Aspirin 81 mg q.48 hours. ALLERGIES: 1. PENICILLIN. 2. SULFA. PHYSICAL EXAMINATION: VITAL SIGNS ON PRESENTATION: Temperature 97.4, pulse 97, respiration 20, blood pressure 156/67, pulse ox 97% on 2 L. GENERAL APPEARANCE: Average build. Sitting up, not in distress. EYES: Pupils equal. Conjunctivae normal. HEENT: External appearance of nose and ears normal. Oral cavity normal. NECK: JVD not raised. Mass not palpable. RESPIRATORY: Effort normal. LUNGS: Decreased breath sounds. CARDIOVASCULAR: First and second sounds normal. No edema. On the right chest wall patient has a hemodialysis catheter. ABDOMEN: Left-sided hernia. Colostomy bag in place. Liver and spleen not palpable. Nontender. LYMPHATICS: No lymph node palpable in neck or axillae. PSYCHIATRY: Awake. Able to answer simple questions. NEUROLOGICAL: Pupils equal. Cranial nerves grossly intact. Power and sensation grossly intact. Patient's left upper extremity has a fistula. INVESTIGATIONS: White count 9.9, hemoglobin 12.1, potassium 4.1, BUN 26, creatinine 5.70. Accu-Cheks are noted. Two-D echocardiogram shows preserved LV function, no wall motion abnormality. Chest CTA is showing some fluid overload, some peribronchial cuffing. ASSESSMENT: 1. Acute pulmonary edema in a patient on hemodialysis. 2. End-stage kidney disease, on hemodialysis. 3. Alzheimer's dementia, late onset type. 4. Essential hypertension. 5. Coronary artery disease with prior history of stent. 6. Diabetes mellitus, type 2, currently on insulin. 7. Thoracolumbar spine osteoarthritis. 8. Anxiety not otherwise specified. 9. Anterior chest wall, probably musculoskeletal. PLAN: Home medications are resumed. Cardiology was consulted. So was Nephrology. Patient did get hemodialysis this morning, with which he is feeling better. The patient has probably underlying tracheobronchitis. Will keep the patient on oral antibiotic. I do not see any full evidence of any pneumonia, especially in light of patient being afebrile. We will see how the patient does today. MMODL / IJN: [id number] /
[2018-02-01] MEDS: ATORVASTATIN 10 MG TAB PO SCH (19:39)
[2018-02-01 20:36] LABS: Glucose,Whole Blood 279 mg/dL (75-99)
[2018-02-02 05:58] LABS: Glucose,Whole Blood 174 mg/dL (75-99)
[2018-02-02] MEDS: INSULIN ASPART 100 UNIT/ML 1 ML 10 ML VIAL SQ SCH ×4 (07:03→12:24)
[2018-02-02] MEDS: PANTOPRAZOLE 40 MG TABLET PO SCH (07:03)
[2018-02-02] MEDS: INSULIN DETEMIR 100 UNIT/ML 10 ML VIAL SQ SCH (07:55)
[2018-02-02] MEDS: LACTOBACILLUS ACIDOPH & BULGAR 1 EACH PACKET PO SCH (07:55)
[2018-02-02] MEDS: ENOXAPARIN 30 MG/0.3 ML SYRINGE SQ SCH (07:55)
[2018-02-02] MEDS: CHOLECALCIFEROL 1,000 UNIT TAB PO SCH (07:55)
[2018-02-02] MEDS: MAGNESIUM OXIDE 400 MG TAB PO SCH (07:55)
[2018-02-02] MEDS: MULTIVITAMINS, THERA 1 EACH TAB PO SCH (07:56)
[2018-02-02] MEDS ORDERED: AZITHROMYCIN 500 MG TAB PO SCH (09:00)
[2018-02-02] MEDS ORDERED: ASPIRIN 81 MG PO SCH (09:00)
--- NOTE | 2018-02-02 09:08 | P.PN ---
Subjective Patient is seen in follow-up for end-stage renal disease. He is maintained on hemodialysis on a Saturday schedule. Patient presented with dyspnea and is currently being treated for bronchitis. He tolerated hemodialysis well yesterday since he missed Saturday's treatment. He's feeling well today and is eager to go home. No active complaints at this time. Vital signs are stable. General: The patient appeared well nourished and normally developed. HEENT: Head exam is unremarkable. Neck is without jugular venous distension. LUNGS: Lungs are clear to auscultation and percussion. Breath sounds decreased. HEART: Rate and Rhythm are regular. First and second heart sounds normal. No murmurs, rubs or gallops. ABDOMEN: Abdominal exam reveals normal bowel sounds. Non-tender and non- distended. No evidence of peritonitis. EXTREMITITES: No clubbing, cyanosis, or edema. Objective - Vital Signs Vital signs: Vital Signs Temp 98.0 F 02/02/18 04:00 Pulse 87 02/02/18 04:00 Resp 16 02/02/18 04:00 BP 136/65 02/02/18 04:00 Pulse Ox 92 L 02/02/18 04:00 Intake & Output 02/01/18 02/02/18 02/02/18 18:59 06:59 18:59 Intake Total 890 300 380 Output Total 250 Balance 890 50 380 Weight 86.5 kg Intake: Intake, IV Titration 250 Amount Azithromycin 500 mg In 250 Sodium Chloride 0.9% 250 ml @ 125 mls/hr IVPB DAILY@1200 [facility] Rx#: [id number] Oral 640 300 380 Output: Urine 250 Other: Voiding Method Toilet # Voids 1 1 - Labs CBC & Chem 7: 01/31/18 13:22 01/31/18 13:22 Labs: Abnormal Lab Results - Last 24 Hours (Table) 02/01/18 02/01/18 02/01/18 Range/Units 08:18 11:43 16:30 POC Glucose (mg/dL) 110 H 264 H (75-99) mg/dL Troponin I (0.000-0.034) ng/mL Hep Bs Antibody Reactive H (Non-Reactive) 02/01/18 02/01/18 02/02/18 Range/Units 20:11 20:35 05:57 POC Glucose (mg/dL) 279 H 174 H (75-99) mg/dL Troponin I 0.037 H* (0.000-0.034) ng/mL Hep Bs Antibody (Non-Reactive) Microbiology - Last 24 Hours (Table) 01/31/18 13:22 Blood Culture - Preliminary Blood No Growth after 24 hours Assessment and Plan Plan: Assessment: 1. End-stage renal disease maintained on hemodialysis on a Saturday schedule via left upper extremity AV fistula. 2. Dyspnea secondary to bronchitis. Mild vascular congestion noted on chest x- ray and CAT scan. 3. Insulin-dependent diabetes mellitus. 4. 9 mm right-sided pulmonary nodule. This will need to be followed up outpatient. Plan: Next HD treatment on Saturday. Anticipate discharge soon. ECHO reviewed - preserved EF.
[2018-02-02 09:31] VITALS: TEMP 97
[2018-02-02 12:02] LABS: Glucose,Whole Blood 102 mg/dL (75-99)
--- NOTE | 2018-02-02 12:26 | P.PN ---
Subjective Progress Note Date: 02/02/18 This is a 87-year-old gentleman with history of hypertension, diabetes and hyperlipidemia and also on dialysis for end-stage renal disease was admitted to the hospital with complaints of atypical chest pain. His EKG showed sinus rhythm without any acute ST-T abnormalities. Small inferior Q waves. His cardiac enzymes have been negative. His echocardiogram showed normal LV function. He is BNP is in the normal range for his age. He had. He seemed to be alert a and doesn't appear to be in acute distress. Patient also has a dementia. No further cardiac workup at this time Objective - Vital Signs Vital signs: Vital Signs Temp 97 F L 02/02/18 08:00 Pulse 94 02/02/18 08:00 Resp 18 02/02/18 08:00 BP 119/82 02/02/18 08:00 Pulse Ox 93 L 02/02/18 08:00 Intake & Output 02/01/18 02/02/18 02/02/18 18:59 06:59 18:59 Intake Total 890 300 380 Output Total 250 Balance 890 50 380 Weight 86.5 kg Intake: Intake, IV Titration 250 Amount Azithromycin 500 mg In 250 Sodium Chloride 0.9% 250 ml @ 125 mls/hr IVPB DAILY@1200 [facility] Rx#: [id number] Oral 640 300 380 Output: Urine 250 Other: Voiding Method Toilet # Voids 1 1 - Exam GENERAL EXAM: Patient is alert and oriented and doesn't appear to be in any acute distress HEENT: Normocephalic. Normal reaction of pupils, equal size, normal range of extraocular motion. No erythema or exudates in the throat. NECK: No masses, no nuchal rigidity. CHEST: No chest wall deformity. LUNGS: Equal air entry with no crackles or wheeze. HEART: S1 and S2 normal with no audible mumurs or gallops. Regular rhythm, femorals equal on both sides.. ABDOMEN: No hepatosplenomegaly, normal bowel sounds, no guarding or rigidity. SKIN: No rashes CENTRAL NERVOUS SYSTEM: No focal deficits. EXTREMITIES: No cyanosis, clubbing or edema. - Labs CBC & Chem 7: 01/31/18 13:22 01/31/18 13:22 Labs: Abnormal Lab Results - Last 24 Hours (Table) 02/01/18 02/01/18 02/01/18 Range/Units 08:18 16:30 20:11 POC Glucose (mg/dL) 264 H (75-99) mg/dL Troponin I 0.037 H* (0.000-0.034) ng/mL Hep Bs Antibody Reactive H (Non-Reactive) 02/01/18 02/02/18 02/02/18 Range/Units 20:35 05:57 12:01 POC Glucose (mg/dL) 279 H 174 H 102 H (75-99) mg/dL Troponin I (0.000-0.034) ng/mL Hep Bs Antibody (Non-Reactive) Microbiology - Last 24 Hours (Table) 01/31/18 13:22 Blood Culture - Preliminary Blood No Growth after 24 hours Assessment and Plan (1) Chest pain Current Visit: Yes Status: Acute Code(s): R07.9 - CHEST PAIN, UNSPECIFIED SNOMED Code(s): 98662254 (2) Hypertension Current Visit: Yes Status: Acute Code(s): I10 - ESSENTIAL (PRIMARY) HYPERTENSION SNOMED Code(s): 74898685 (3) Renal failure Current Visit: No Status: Acute Code(s): N19 - UNSPECIFIED KIDNEY FAILURE SNOMED Code(s): 75849016 Plan: Patient seemed to be clinically stable. Doesn't appear to be in acute distress. Echo showed normal LV function. No further cardiac workup at this time.
[2018-02-02 12:46] VITALS: BP 129/60; PULSE 86; RESP 17
--- NOTE | 2018-02-03 06:18 | DS ---
DISCHARGE SUMMARY ADMISSION: February 01, 2018. DATE OF DISCHARGE: February 02, 2018. FINAL DIAGNOSES: 1. Acute pulmonary edema. 2. End-stage kidney disease on hemodialysis. 3. Alzheimer's dementia late onset type. 4. Essential hypertension. 5. Coronary artery disease with prior history of stent. 6. Diabetes mellitus type 2, currently on insulin. 7. Thoracolumbar spine osteoarthritis. 8. Anxiety, not otherwise specified. 9. Anterior chest wall pain musculoskeletal. HOSPITAL COURSE: This patient presented with pulmonary edema, responded well to dialysis. Also felt to have some underlying acute bronchitis. Doing well. Seen by Dr. Carrizales from Nephrology, Dr. Dale from Cardiology. On exam lungs are clear. Cardiovascular 1st 2nd sounds normal. 2D echo showed EF of 55-60% and chest CT was negative for PE. Care was discussed with the patient. DISCHARGE MEDICATIONS: 1. Aspirin 81 mg every 48 hours. 2. Lipitor 5 mg q.h.s. 3. Levemir 35 units subcu in the morning. 4. Multivitamin 1 tab p.o. daily. 5. Vitamin D3 1000 units p.o. daily. 6. Magnesium oxide 400 mg p.o. daily. 7. COQ 10 30 mg p.o. daily. 8. Prilosec 20 mg at breakfast. 9. NovoLog 4 units with breakfast, 5 units with lunch, 5 with supper. 10.Prosymbiotic 1 tab p.o. b.i.d. 11.Zithromax 500 mg a day for 3 days. Follow up with Dr. Marshall in 1 week. Patient to keep his hemodialysis schedule. Copy to Dr. Marshall. ANNMARIE / PHAMN: [id number] /
== END 2018-02-02 15:50 | disposition home or self-care (01) | DRG 189 ==
LOC: EC 13:13 → 6SEL 16:17
PROVIDERS: ADMIT Hospitalist; ATTEND Hospitalist
PROC: 5A1D70Z Performance of Urinary Filtration, Intermittent, Less than 6 Hours Per Day (ICD-10-PCS; principal; 2018-02-01)
DX: J81.0 Acute pulmonary edema (principal); N18.6 End stage renal disease; I12.0 Hypertensive chronic kidney disease with stage 5 chronic kidney disease or end stage renal disease; E87.70 Fluid overload, unspecified; E11.22 Type 2 diabetes mellitus with diabetic chronic kidney disease; E78.5 Hyperlipidemia, unspecified; F02.80 Dementia in other diseases classified elsewhere, unspecified severity, without behavioral disturbance, psychotic disturbance, mood disturbance, and anxiety; F41.9 Anxiety disorder, unspecified; G30.1 Alzheimer's disease with late onset; I27.21 Secondary pulmonary arterial hypertension; J44.9 Chronic obstructive pulmonary disease, unspecified; J98.01 Acute bronchospasm; M19.90 Unspecified osteoarthritis, unspecified site; M47.815 Spondylosis without myelopathy or radiculopathy, thoracolumbar region; R91.1 Solitary pulmonary nodule; J40 Bronchitis, not specified as acute or chronic; I25.10 Atherosclerotic heart disease of native coronary artery without angina pectoris; R07.89 Other chest pain; Z79.4 Long term (current) use of insulin; Z79.82 Long term (current) use of aspirin; Z79.899 Other long term (current) drug therapy; Z99.2 Dependence on renal dialysis; Z95.5 Presence of coronary angioplasty implant and graft; Z93.3 Colostomy status; Z87.891 Personal history of nicotine dependence; Z90.49 Acquired absence of other specified parts of digestive tract; Z88.0 Allergy status to penicillin; Z88.2 Allergy status to sulfonamides
CPT/HCPCS: 36415; 71046; 71275; 80053; 82550; 82553; 83036; 83880; 84100; 84484; 85025; 85379; 85610; 85730; 86706; 87040; 87340; 90935; 93005; 93306; 94640

== ENCOUNTER 2019-08-17 10:42 | Observation (INO) | payer MEDICARE, OTHER ==
[2019-08-17] MEDS ORDERED: MORPHINE SULFATE 4 MG/ML SYRINGE IVP STA (11:16)
--- NOTE | 2019-08-17 11:18 | ED ---
General Adult HPI - General Chief complaint: Back Pain/Injury Stated complaint: muscle spasms Time Seen by Provider: 08/17/19 10:55 Source: Caregiver Mode of arrival: wheelchair - History of Present Illness Initial comments: Patient is an 80-year-old male with past history of end-stage renal disease on hemodialysis, chronic back pain and colon cancer with colostomy bag presents emergency room with reported back spasms. His caretakers at bedside provide a history. She states that this is a chronic issue for the patient for which she is on Flexeril and tramadol. He did not receive his medications today. The ore mixer attempted to take him to dialysis. When he attempted to sit in a chair, he began having excruciating spasms in his mid back and needed to be transported to the hospital. He was unable to receive his treatment today. He does go Saturday. His last treatment was on Saturday. His schedule has been adjusted because of the upcoming holiday. He was supposed to have a treatment yesterday which was moved to today. He sees Dr. Tay in [place]. He denies any chest pain. No fevers or chills. No new trauma. No numbness or tingling in any extremities. There are no other alleviating, precipitating or modifying factors - Related Data Home Medications Medication Instructions Recorded Confirmed Aspirin EC [Ecotrin Low Dose] 81 mg PO Q48H 02/08/16 08/17/19 Atorvastatin [Lipitor] 10 mg PO HS 02/08/16 08/17/19 Insulin Detemir [Levemir Flextouch] 30 units SQ QAM 02/08/16 08/17/19 Multivitamins, Thera [Multivitamin 1 tab PO DAILY 02/08/16 08/17/19 (formulary)] Cholecalciferol [Vitamin D3 (25 2,000 unit PO DAILY 10/20/16 08/17/19 Mcg = 1000 Iu)] Ubidecarenone [Co Q-10] 30 mg PO DAILY 10/20/16 08/17/19 Lindsay K 1 tab PO DAILY 12/15/17 08/17/19 Prosynbiotic 1 tab PO BID 12/15/17 08/17/19 Acetaminophen Tab [Tylenol] 325 mg PO Q6HR PRN 08/17/19 08/17/19 Albuterol Sulfate [Ventolin HFA] 1 puff INHALATION RT-BID PRN 08/17/19 08/17/19 Calcium Acetate [PhosLo] 1,334 mg PO TID-W/MEALS 08/17/19 08/17/19 Cinnamon Bark 600mg 600 mg PO DAILY 08/17/19 08/17/19 Cyclobenzaprine [Flexeril] 10 mg PO DAILY PRN 08/17/19 08/17/19 Cyclobenzaprine [Flexeril] 10 mg PO Q8H PRN 08/17/19 08/17/19 Docusate Sodium [Dok] 100 mg PO DAILY PRN 08/17/19 08/17/19 EPINEPHrine (Auto Inject) [Epipen] 0.3 mg IM ONCE PRN 08/17/19 08/17/19 [place] Cough Drops 1 lozenge MUCOUS MEM Q2H PRN 08/17/19 08/17/19 Insulin Aspart [NovoLOG Flexpen] 4 units SQ AC-BRKFST PRN 08/17/19 08/17/19 Insulin Aspart [NovoLOG Flexpen] 5 units SQ AC-LUNCH PRN 08/17/19 08/17/19 Latanoprost [Xelpros] 1 drop BOTH EYES HS 08/17/19 08/17/19 Magnesium Glycinate 400mg 400 mg PO BID 08/17/19 08/17/19 Mct Oil 1 oz PO BID 08/17/19 08/17/19 Tussin Syrup 10 ml PO Q6H PRN 08/17/19 08/17/19 traMADol HCL 50 mg PO BID PRN 08/17/19 08/17/19 Previous Rx's Medication Instructions Recorded Omeprazole [PriLOSEC] 20 mg PO AC-BRKFST #30 cap 11/16/16 HYDROcodone/APAP 5-325MG [[place] 1 each PO Q6HR PRN #10 tab 08/18/19 5-325] Allergies Allergy/AdvReac Type Severity Reaction Status Date / Time Penicillins Allergy Unknown Verified 08/17/19 14:30 Childhood Sulfa (Sulfonamide Allergy Unknown Verified 08/17/19 14:30 Antibiotics) Childhood Review of Systems ROS Statement: Those systems with pertinent positive or pertinent negative responses have been documented in the HPI. ROS Other: All systems not noted in ROS Statement are negative. Past Medical History Past Medical History: Dementia, Dialysis, Hyperlipidemia, Hypertension Additional Past Medical History / Comment(s): kidney failure, colon ca, dialysis mwf History of Any Multi-Drug Resistant Organisms: None Reported Date of last positivie culture/infection: None MDRO Source:: None Past Surgical History: Bowel Resection, Heart Catheterization With Stent Additional Past Surgical History / Comment(s): colostomy 2010 Past Anesthesia/Blood Transfusion Reactions: No Reported Reaction Date of Last Stent Placement:: 2009 Past Psychological History: No Psychological Hx Reported Smoking Status: Former smoker Past Alcohol Use History: Occasional Past Drug Use History: None Reported - Past Family History Father Family Medical History: No Reported History Mother Family Medical History: No Reported History General Exam General appearance: alert, in no apparent distress Head exam: Present: atraumatic, normocephalic, normal inspection Eye exam: Present: normal appearance, PERRL, EOMI. Absent: scleral icterus, conjunctival injection, periorbital swelling ENT exam: Present: normal exam, mucous membranes moist Neck exam: Present: normal inspection. Absent: tenderness, meningismus, lymphadenopathy Respiratory exam: Present: normal lung sounds bilaterally. Absent: respiratory distress, wheezes, rales, rhonchi, stridor Cardiovascular Exam: Present: regular rate, normal rhythm, normal heart sounds. Absent: systolic murmur, diastolic murmur, rubs, gallop, clicks GI/Abdominal exam: Present: soft, normal bowel sounds. Absent: distended, tenderness, guarding, rebound, rigid Extremities exam: Present: normal inspection, full ROM, normal capillary refill. Absent: tenderness, pedal edema, joint swelling, calf tenderness Back exam: Present: normal inspection, muscle spasm (thoracic region), par aspinal tenderness. Absent: vertebral tenderness, rash noted Neurological exam: Present: alert, CN II-XII intact Psychiatric exam: Present: normal affect, normal mood Skin exam: Present: warm, dry, intact, normal color. Absent: rash Course Vital Signs 08/17/19 10:52 Temperature 97.4 F L Pulse Rate 92 Respiratory 18 Rate Blood Pressure 146/71 O2 Sat by Pulse 96 Oximetry Medical Decision Making - Medical Decision Making Upon arrival the patient is placed in room 10. He is given 4 mg of morphine for pain control. Laboratory studies were conducted. CBC is unremarkable. CMP shows a creatinine of 9.8. I called discuss case with Dr. Carrizales. He does request that the patient have 2 hours of dialysis today. They called Dr. Carroll who accepted admission. Dialysis is notified. The patient remained in stable condition and was transported to the floor - Lab Data Result diagrams: 08/18/19 12:00 08/18/19 12:00 Lab Results 08/17/19 08/17/19 Range/Units 11:36 11:36 WBC 9.3 (3.8-10.6) k/uL RBC 3.56 L (4.30-5.90) m/uL Hgb 11.6 L (13.0-17.5) gm/dL Hct 33.9 L (39.0-53.0) % MCV 95.3 (80.0-100.0) fL MCH 32.6 (25.0-35.0) pg MCHC 34.2 (31.0-37.0) g/dL RDW 13.8 (11.5-15.5) % Plt Count 207 (150-450) k/uL Neutrophils % 70 % Lymphocytes % 15 % Monocytes % 7 % Eosinophils % 5 % Basophils % 0 % Neutrophils # 6.5 (1.3-7.7) k/uL Lymphocytes # 1.4 (1.0-4.8) k/uL Monocytes # 0.7 (0-1.0) k/uL Eosinophils # 0.5 (0-0.7) k/uL Basophils # 0.0 (0-0.2) k/uL Sodium 140 (137-145) mmol/L Potassium 5.1 (3.5-5.1) mmol/L Chloride 100 (98-107) mmol/L Carbon Dioxide 25 (22-30) mmol/L Anion Gap 15 mmol/L BUN 52 H (9-20) mg/dL Creatinine 9.89 H* (0.66-1.25) mg/dL Est GFR (CKD-EPI)AfAm 5 (>60 ml/min/1.73 sqM) Est GFR (CKD-EPI)NonAf 4 (>60 ml/min/1.73 sqM) Glucose 97 (74-99) mg/dL Calcium 9.9 (8.4-10.2) mg/dL Total Bilirubin 0.6 (0.2-1.3) mg/dL AST 23 (17-59) U/L ALT 18 L (21-72) U/L Alkaline Phosphatase 65 (38-126) U/L Total Protein 6.9 (6.3-8.2) g/dL Albumin 4.0 (3.5-5.0) g/dL Disposition Clinical Impression: Back spasm, Renal failure Disposition: ADMITTED IP TO THIS [facility] Condition: Stable Is patient prescribed a controlled substance at d/c from ED?: No Decision to Admit Reason: Admit from EC Decision Date: 08/17/19 Decision Time: 13:48
[2019-08-17 12:01] LABS: Basophils % (A) 0 %; Eosinophils # (A) 0.5 k/uL (0-0.7); Eosinophils % (A) 5 %; HCT 33.9 % (39.0-53.0); HGB 11.6 gm/dL (13.0-17.5); Lymphocytes # (A) 1.4 k/uL (1.0-4.8); Lymphocytes % (A) 15 %; MCH 32.6 pg (25.0-35.0); MCHC 34.2 g/dL (31.0-37.0); MCV 95.3 fL (80.0-100.0); Mean Platelet Volume 7.1; Monocytes # (A) 0.7 k/uL (0-1.0); Monocytes % (A) 7 %; Neutrophils # (A) 6.5 k/uL (1.3-7.7); Neutrophils % (A) 70 %; Platelet Count 207 k/uL (150-450); RBC 3.56 m/uL (4.30-5.90); RDW 13.8 % (11.5-15.5); WBC 9.3 k/uL (3.8-10.6)
[2019-08-17 12:20] LABS: Calcium 9.9 mg/dL (8.4-10.2); Potassium 5.1 mmol/L (3.5-5.1); Total Bilirubin 0.6 mg/dL (0.2-1.3); Total Protein 6.9 g/dL (6.3-8.2)
--- NOTE | 2019-08-17 12:49 | CT ---
EXAMINATION TYPE: CT thor lumbar spine wo con DATE OF EXAM: 08/17/2019 COMPARISON: None HISTORY: Back pain, history of prostate cancer CT DLP: 1551.[address] of the breasts again lumbar spine was performed. Bone and soft tissue window settings are submitted as well as coronal and sagittal reconstructions. Thoracic spine: Moderate to severe multilevel degenerative disc space narrowing. Curvature convex to the right. Ventral and dorsal spondylosis mild disc bulge. No evidence for central stenosis. No bony destructive process or fracture identified. L1-L2: Normal disc space height. No disc herniation protrusion or central stenosis. No facet joint arthropathy. No evidence for foraminal encroachment. L2-L3: Normal disc space height. No disc herniation protrusion or central stenosis. No facet joint arthropathy. No evidence for foraminal encroachment. L3-L4: Mild to moderate degenerative disc space narrowing. Posterior disc bulge with effacement ventr al thecal sac. Bilateral lateral recess stenosis without overt stenosis identified at this time. Face t joint arthropathy with bilateral foraminal encroachment. L4-L5: Moderate disc desiccation. Circumferential disc bulge greatest posteriorly. Effacement of the ventral thecal sac resulting in [id number] central stenosis. L5-S1: Normal disc space height. No disc herniation protrusion or central stenosis. No facet joint arthropathy. No evidence for foraminal encroachment. No paraspinal masses are identified. Lumbar segments are free if fracture. IMPRESSION: 1. 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 2. No evidence for fracture or malalignment.
[2019-08-17] MEDS ORDERED: NALOXONE 0.4 MG/ML 1 ML VIAL IV PRN (13:49)
[2019-08-17] MEDS ORDERED: CYCLOBENZAPRINE 10 MG TAB PO PRN ×2 (16:03)
[2019-08-17] MEDS ORDERED: guaiFENesin SYRUP 100MG/5ML 200 MG/10 ML CUP PO PRN (16:03)
[2019-08-17] MEDS ORDERED: INSULIN ASPART (NovoLOG) 100 UNIT/ML VIAL SQ PRN ×2 (16:03)
[2019-08-17] MEDS ORDERED: traMADol 50 MG TAB PO PRN (16:03)
[2019-08-17] MEDS ORDERED: ALBUTEROL NEBULIZED 2.5 MG/3 ML INHALATION PRN (16:03)
[2019-08-17] MEDS ORDERED: MENTHOL (NICE) LOZENGE MUCOUS MEM PRN (16:03)
[2019-08-17] MEDS ORDERED: DOCUSATE 100 MG CAP PO PRN (16:03)
[2019-08-17] MEDS ORDERED: EPINEPHrine 1 MG/ML 1 ML AMP IM PRN (16:03)
[2019-08-17] MEDS ORDERED: HYDROmorphone 0.5 MG/0.5 ML SYRINGE IVP PRN (16:05)
[2019-08-17] MEDS ORDERED: HYDROcodone/APAP 5-325MG 1 EACH TAB PO PRN (16:05)
[2019-08-17] MEDS ORDERED: ASPIRIN 81 MG PO ONE (16:15)
[2019-08-17] MEDS: CALCIUM ACETATE 667 MG TAB PO SCH (16:29)
[2019-08-17 16:46] LABS: Glucose,Whole Blood 102 mg/dL (75-99)
[2019-08-17] MEDS: INSULIN ASPART (NovoLOG) 100 UNIT/ML VIAL SQ SCH ×2 (16:50→22:24)
--- NOTE | 2019-08-17 17:32 | HP ---
HISTORY AND PHYSICAL DATE OF SERVICE: 08/17/2019. CHIEF COMPLAINTS: Missing hemodialysis and severe back spasms. HISTORY OF PRESENT ILLNESS: This 88-year-old gentleman with a past medical history of chronic renal failure, hemodialysis, history of dementia, history of hypertension, hyperlipidemia, history of bowel resection, CAD/stent, being followed by Dr. Marshall in the outpatient setting was living in [facility]. Patient apparently missed his hemodialysis, but the patient missed hemodialysis yesterday because of the patient had severe back spasms that could be an issue with transportation as well. The patient was taken to [facility] today and IM morphine was given for back spasm with some relief and the patient is being closely monitored at this time. Hemodialysis is being arranged. There is no history of fever, rigors or chills. No history of headache, loss of consciousness, seizures. PAST MEDICAL HISTORY: History of dementia, dialysis, hypertension, hyperlipidemia, history of kidney failure. MEDICATIONS: Prior to admission: Home medications are: 1. Ultram 50 mg b.i.d. p.r.n. 2. Coenzyme Q10. 4. Probiotic. 5. Omeprazole 20 mg p.o. daily. 6. Multivitamins 1 p.o. daily. 7. Latanoprost 1 drop q.h.s. 8. Levemir 30 units subcu q.a.m. 9. NovoLog 4 units a.c. breakfast and 5 units a.c. lunch. 10.Epinephrine. 11.DOK 100 mg daily p.r.n. 12.Flexeril 10 mg q.8 p.r.n. 13.Flexeril 10 mg q.6h p.r.n. 14.Cinnamon bark. 15.Vitamin D3 2000 daily. 16.PhosLo 1334 mg p.o. t.i.d. with meals. 17.Lipitor 10 mg q.h.s. 18.Ecotrin 81 mg q.48h hours. 19.Albuterol 1 puff b.i.d. p.r.n. 20.Tylenol 320 q.6h p.r.n. ALLERGIES: PENICILLIN AND SULFA. FAMILY HISTORY: No history of heart disease or strokes in the family. SOCIAL HISTORY: Previous history of smoking. No history of smoking or alcohol in alcohol intake currently. REVIEW OF SYSTEMS: ENT: Diminished vision. Diminished hearing. CARDIOVASCULAR: No angina or palpitations. RESPIRATORY: As mentioned earlier. GASTROINTESTINAL: As mentioned earlier. : As mentioned. NERVOUS SYSTEM: No numbness or weakness. ALLERGY/IMMUNOLOGY: No asthma or hayfever. MUSCULOSKELETAL as mentioned earlier. HEMATOLOGY/ONCOLOGY: No history of anemia. ENDOCRINE: Diabetes. CONSTITUTIONAL: As mentioned earlier. DERMATOLOGY: Negative. RHEUMATOLOGY: Negative. PSYCHIATRY: As mentioned earlier. PHYSICAL EXAMINATION: Alert and oriented x2. Pulse 80. Blood pressure 117/87, respirations 16, temp 98.6, pulse ox 91 percent on room air. HEENT: Conjunctivae normal. Oral mucosa moist. NECK is no jugular venous distention. No carotid bruit. No lymph node enlargement. CARDIOVASCULAR system: S1, S2 muffled. No S3, no S4. RESPIRATORY: Breath sounds diminished in the bases. A few scattered rhonchi. No crackles. ABDOMEN: Soft, obese, nontender. No mass palpable. LEGS: No edema. No swelling. NERVOUS SYSTEM: Higher functions as mentioned earlier. Moves all 4 limbs. No focal motor or sensory deficits. LYMPHATICS: No lymph nodes palpable in the neck, axillae or groin. SKIN: No ulcer, no rashes and no bleeding. JOINTS: No active deforming arthropathy. LABS: WBC 9.2, hemoglobin 11.6, creatinine 9.89. ASSESSMENT: 1. Severe back spasms and severe back pain with failure of outpatient treatment. 2. Noncompliance with missed hemodialysis. 3. Anemia, normocytic. 4. 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 5. Dementia. 6. Hypertension. 7. Hyperlipidemia. 8. History of colon cancer. 9. History of bowel resection. 10.History of coronary artery disease/stent. 11.Remote history of nicotine dependence. 12.FULL CODE. RECOMMENDATIONS AND DISCUSSION: In this 88-year-old gentleman who presented with multiple complex medical issues, at this time, I recommend to continue the current medications, continue symptomatic treatment. Otherwise, I would recommend, resume the home medications. DVT prophylaxis. Continue the hemodialysis. Other than that, nephrology evaluation and I would also recommend to follow the patient closely. Prognosis guarded. A copy of this dictation being forwarded to Dr. Marshall who is the primary care physician. MMROCKY / PHAMN: [id number] / SHANTELL
[2019-08-17 20:48] LABS: Albumin 4.2 g/dL (3.5-5.0); Calcium 9.6 mg/dL (8.4-10.2); Potassium 4.3 mmol/L (3.5-5.1); Total Bilirubin 0.6 mg/dL (0.2-1.3); Total Protein 7.1 g/dL (6.3-8.2)
[2019-08-17 20:55] LABS: Glucose,Whole Blood 182 mg/dL (75-99)
[2019-08-17] MEDS ORDERED: ATORVASTATIN 10 MG TAB PO SCH (21:00)
[2019-08-17] MEDS ORDERED: LATANOPROST 0.005% OPHTH DROPS 2.5 ML BTL BOTH EYES SCH (21:00)
[2019-08-17] MEDS: MAGNESIUM OXIDE 400 MG TAB PO SCH (22:22)
[2019-08-17] MEDS: HEPARIN SODIUM,PORCINE 5,000 UNIT/ML 1 ML VIAL SQ SCH (22:23)
[2019-08-17] MEDS: LACTOBACILLUS ACIDOPH & BULGAR 1 EACH PACKET PO SCH (22:23)
[2019-08-18] MEDS ORDERED: INSULIN DETEMIR (LEVEMIR) 100 UNIT/ML SYR SQ SCH (07:00)
[2019-08-18 07:01] LABS: Glucose,Whole Blood 107 mg/dL (75-99)
[2019-08-18] MEDS: INSULIN ASPART (NovoLOG) 100 UNIT/ML VIAL SQ SCH ×2 (07:04→11:56)
[2019-08-18] MEDS: CALCIUM ACETATE 667 MG TAB PO SCH ×2 (07:05→12:13)
[2019-08-18] MEDS: MAGNESIUM OXIDE 400 MG TAB PO SCH (07:06)
[2019-08-18] MEDS: LACTOBACILLUS ACIDOPH & BULGAR 1 EACH PACKET PO SCH (07:06)
[2019-08-18] MEDS: HEPARIN SODIUM,PORCINE 5,000 UNIT/ML 1 ML VIAL SQ SCH (07:06)
[2019-08-18] MEDS ORDERED: PANTOPRAZOLE 40 MG TABLET PO SCH ×2 (07:30)
[2019-08-18] MEDS ORDERED: CHOLECALCIFEROL 1,000 UNIT TAB PO SCH (09:00)
[2019-08-18] MEDS ORDERED: OMEGA K PO SCH (09:00)
[2019-08-18] MEDS ORDERED: UBIDECARENONE 30 MG PO SCH (09:00)
[2019-08-18] MEDS ORDERED: MULTIVITAMINS, THERA 1 EACH TAB PO SCH (09:00)
--- NOTE | 2019-08-18 10:27 | P.NPCON ---
History of Present Illness - Reason for Consult chronic renal failure - History of Present Illness Reason for consultation: End-stage renal disease History of present illness: Patient is a 88-year-old male seen in renal consultation for end-stage liver disease. He is maintained on hemodialysis on Saturday schedule. Patient went to hemodialysis yesterday but was complaining of back spasms. Due to worsening of the pain, he was sent to the ER. He tolerated hemodialysis well yesterday. Currently he is resting in bed. Pain is controlled. No further spasms. Denies chest pain or shortness of breath. Oral intake is good. Hemodynamically stable. He did undergo CT of the thoracic and lumbar spine which revealed central stenosis at L4 and L5. No acute fracture was noted. Vital signs are stable. General: The patient appeared well nourished and normally developed. HEENT: Head exam is unremarkable. Neck is without jugular venous distension. LUNGS: Lungs are clear to auscultation and percussion. Breath sounds decreased. HEART: Rate and Rhythm are regular. First and second heart sounds normal. No murmurs, rubs or gallops. ABDOMEN: Abdominal exam reveals normal bowel sounds. Non-tender and non- distended. No evidence of peritonitis. EXTREMITITES: No clubbing, cyanosis, or edema. Past Medical History Past Medical History: Dementia, Dialysis, Hyperlipidemia, Hypertension Additional Past Medical History / Comment(s): kidney failure, colon ca, dialysis mwf History of Any Multi-Drug Resistant Organisms: None Reported Date of last positivie culture/infection: None MDRO Source:: None Past Surgical History: Bowel Resection, Heart Catheterization With Stent Additional Past Surgical History / Comment(s): colostomy 2010 Past Anesthesia/Blood Transfusion Reactions: No Reported Reaction Date of Last Stent Placement:: 2009 Past Psychological History: No Psychological Hx Reported Smoking Status: Former smoker Past Alcohol Use History: Occasional Past Drug Use History: None Reported - Past Family History Father Family Medical History: No Reported History Mother Family Medical History: No Reported History Medications and Allergies Home Medications Medication Instructions Recorded Confirmed Type Aspirin EC [Ecotrin Low Dose] 81 mg PO Q48H 02/08/16 08/17/19 History Atorvastatin [Lipitor] 10 mg PO HS 02/08/16 08/17/19 History Insulin Detemir [Levemir Flextouch] 30 units SQ QAM 02/08/16 08/17/19 History Multivitamins, Thera [Multivitamin 1 tab PO DAILY 02/08/16 08/17/19 History (formulary)] Cholecalciferol [Vitamin D3 (25 2,000 unit PO DAILY 10/20/16 08/17/19 History Mcg = 1000 Iu)] Ubidecarenone [Co Q-10] 30 mg PO DAILY 10/20/16 08/17/19 History Omeprazole [PriLOSEC] 20 mg PO AC-BRKFST #30 cap 11/16/16 08/17/19 Rx Lewis K 1 tab PO DAILY 12/15/17 08/17/19 History Prosynbiotic 1 tab PO BID 12/15/17 08/17/19 History Acetaminophen Tab [Tylenol Tab] 325 mg PO Q6HR PRN 08/17/19 08/17/19 History Albuterol Sulfate [Ventolin HFA] 1 puff INHALATION RT-BID PRN 08/17/19 08/17/19 History Calcium Acetate [Phoslo] 1,334 mg PO TID-W/MEALS 08/17/19 08/17/19 History Cinnamon Bark 600mg 600 mg PO DAILY 08/17/19 08/17/19 History Cyclobenzaprine [Flexeril] 10 mg PO DAILY PRN 08/17/19 08/17/19 History Cyclobenzaprine [Flexeril] 10 mg PO Q8H PRN 08/17/19 08/17/19 History Docusate Sodium [Dok] 100 mg PO DAILY PRN 08/17/19 08/17/19 History EPINEPHrine (Auto Inject) [Epipen] 0.3 mg IM ONCE PRN 08/17/19 08/17/19 History [place] Cough Drops 1 lozenge MUCOUS MEM Q2H PRN 08/17/19 08/17/19 History Insulin Aspart [NovoLOG Flexpen] 4 units SQ AC-BRKFST PRN 08/17/19 08/17/19 History Insulin Aspart [NovoLOG Flexpen] 5 units SQ AC-LUNCH PRN 08/17/19 08/17/19 History Latanoprost [Xelpros] 1 drop BOTH EYES HS 08/17/19 08/17/19 History Magnesium Glycinate 400mg 400 mg PO BID 08/17/19 08/17/19 History Mct Oil 1 oz PO BID 08/17/19 08/17/19 History Tussin Syrup 10 ml PO Q6H PRN 08/17/19 08/17/19 History traMADol HCL 50 mg PO BID PRN 08/17/19 08/17/19 History Allergies Allergy/AdvReac Type Severity Reaction Status Date / Time Penicillins Allergy Unknown Verified 08/17/19 14:30 Childhood Sulfa (Sulfonamide Allergy Unknown Verified 08/17/19 14:30 Antibiotics) Childhood Physical Exam Vitals: Vital Signs Temp Pulse Pulse Resp BP BP Pulse Ox 08/18/19 05:53 98.4 F 71 20 143/61 92 L 08/17/19 22:28 97.4 F L 67 20 149/58 97 08/17/19 17:14 96.6 F L 72 18 126/65 08/17/19 14:38 96.6 F L 80 16 170/87 91 L 08/17/19 10:52 97.4 F L 92 18 146/71 96 Intake and Output 08/17/19 08/18/19 08/18/19 22:59 06:59 14:59 Intake Total 400 100 240 Output Total 500 Balance -100 100 240 Intake: Oral 400 100 240 Output: Hemodialysis 500 Other: # Voids 1 1 # Bowel Movements 0 Results - Lab Results Most recent lab results Calcium 9.6 mg/dL (8.4-10.2) 08/17/19 18:15 08/17/19 11:36 08/17/19 18:15 Assessment and Plan Plan: Assessment: 1. End-stage renal disease maintained on hemodialysis on Saturday schedule. 2. Back spasms. Patient tends to get the spasms especially when he gets below his dry weight. Patient's dry weight was recently increased outpatient. Currently stable. 3. Insulin-dependent diabetes mellitus. 4. Chronic kidney disease mineral bone disease maintained on PhosLo. Plan: Hemodialysis today. Stable to be discharged home from nephrology standpoint. Thank you for the consultation. I will continue to follow the patient with you during his hospital stay.
[2019-08-18 11:53] LABS: Glucose,Whole Blood 86 mg/dL (75-99)
[2019-08-18 12:34] VITALS: PULSE 72; TEMP 98
[2019-08-18 13:20] LABS: Basophils # (A) 0.1 k/uL (0-0.2); Basophils % (A) 1 %; Eosinophils # (A) 0.3 k/uL (0-0.7); Eosinophils % (A) 4 %; HCT 30.9 % (39.0-53.0); HGB 10.4 gm/dL (13.0-17.5); Lymphocytes # (A) 1.1 k/uL (1.0-4.8); Lymphocytes % (A) 17 %; MCHC 33.7 g/dL (31.0-37.0); MCV 94.9 fL (80.0-100.0); Mean Platelet Volume 7.3; Monocytes # (A) 0.5 k/uL (0-1.0); Monocytes % (A) 9 %; Neutrophils # (A) 4.3 k/uL (1.3-7.7); Neutrophils % (A) 68 %; Platelet Count 178 k/uL (150-450); RBC 3.26 m/uL (4.30-5.90); RDW 13.8 % (11.5-15.5); WBC 6.4 k/uL (3.8-10.6)
[2019-08-18 13:44] LABS: Calcium 9.1 mg/dL (8.4-10.2); Magnesium 1.9 mg/dL (1.6-2.3); Potassium 4.5 mmol/L (3.5-5.1)
[2019-08-18 15:32] VITALS: BP 127/70; RESP 18
--- NOTE | 2019-08-18 21:46 | DS ---
DISCHARGE SUMMARY DATE OF SERVICE: 08/18/2019. FINAL DIAGNOSES: 1. Severe back spasms and severe back pain with failure of outpatient treatment. 2. Noncompliance with missed hemodialysis. 3. Anemia, normocytic. 4. 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 5. Dementia. 6. Hypertension. 7. Hyperlipidemia. 8. History of colon cancer. 9. History of bowel resection. 10.History of coronary artery disease/sent. 11.Remote history of nicotine dependence. 12.FULL CODE. DISCHARGE DISPOSITION: The patient will be discharged in stable condition with guarded prognosis. HISTORY OF PRESENT ILLNESS: This 88-year-old gentleman with a past medical history of multiple medical multiple medical problems being followed by Dr. Marshall in the outpatient setting was admitted with features of back pain, back spasms and failure of outpatient treatment and as well as noncompliance. Patient could not attend hemodialysis. The patient admitted for urgent hemodialysis, which was completed and the patient is feeling some improvement with back spasms and back and neck pain. Short course of narcotics was recommended because of the extreme nature of the pain at this time. Dr. Marshall will follow up in the outpatient setting. On exam, vitals are stable. Cardiovascular: S1, S2 normal. Abdomen soft. Nervous system: No focal deficits. Central nervous system: Mild diffuse weakness. DISCHARGE ADVICE AND MEDICATIONS: 1. Discharge diet is cardiac diet. 2. Activity limited until followup. 3. Follow up with Dr. Marshall in 2-3 days. 4. Follow up with Nephrology as recommended. DISCHARGE MEDICATIONS: 1. Cinnamon bark 30 mg daily. 2. Coenzyme Q as before. 3. DOK as before. 4. Ecotrin 81 mg q.48h hours. 5. EpiPen p.r.n. 6. Flexeril 10 mg daily p.r.n. 7. Flexeril 10 mg q.8 p.r.n. 8. Levemir 30 units subcu q.a.m. 9. Lipitor 10 mg q.h.s. 10.Magnesium gluconate 400 mg p.o. b.i.d. 11.Multivitamins 1 p.o. daily. 12.NovoLog FlexPen 5 units a.c. lunch. 13.[place]-3 fatty acids. 14.PhosLo 1334 mg p.o. t.i.d. 15.Ultram p.r.n. 16.Tylenol p.r.n. 17.Cholecalciferol. 18.Vitamin D3 p.r.n. 19.Xalpros 1 drop both eyes q.h.s. 20.[place] 5 mg q.6h p.r.n. 21.Prilosec 20 mg with breakfast. Follow up with Nephrology and dialysis and other recommendations. Once again the patient being discharged in stable condition. Guarded prognosis. MMODL / IJN: [id number] / SHANTELL
[2019-08-19] MEDS ORDERED: ASPIRIN 81 MG PO SCH (09:00)
== END 2019-08-18 17:03 | disposition home or self-care (01) ==
LOC: EC 10:42 → 4MS4W 13:49
PROVIDERS: ADMIT Hospitalist; ATTEND Hospitalist
DX: M62.830 Muscle spasm of back (principal); M48.061 Spinal stenosis, lumbar region without neurogenic claudication; N25.0 Renal osteodystrophy; I12.0 Hypertensive chronic kidney disease with stage 5 chronic kidney disease or end stage renal disease; E11.22 Type 2 diabetes mellitus with diabetic chronic kidney disease; Z99.2 Dependence on renal dialysis; N18.5 Chronic kidney disease, stage 5; Z87.891 Personal history of nicotine dependence; Z79.4 Long term (current) use of insulin; Z85.038 Personal history of other malignant neoplasm of large intestine; Z95.5 Presence of coronary angioplasty implant and graft; Z90.49 Acquired absence of other specified parts of digestive tract; Z93.3 Colostomy status; D64.9 Anemia, unspecified; E78.5 Hyperlipidemia, unspecified; I25.10 Atherosclerotic heart disease of native coronary artery without angina pectoris; F03.90 Unspecified dementia, unspecified severity, without behavioral disturbance, psychotic disturbance, mood disturbance, and anxiety; Z79.82 Long term (current) use of aspirin; Z79.899 Other long term (current) drug therapy; Z88.0 Allergy status to penicillin; Z88.2 Allergy status to sulfonamides
CPT/HCPCS: 96372 ×2; 96374; 99284; 36415; 80053; 80048; 83735; 85025 ×2; 72128; 72131; G0378 ×2; G0257 ×2; J2270; J1644 ×2; 90935

== ENCOUNTER 2019-09-18 13:27 | Inpatient (IN) | payer MEDICARE, OTHER ==
[2019-09-18 15:03] LABS: Albumin 4.3 g/dL (3.5-5.0); Calcium 9.5 mg/dL (8.4-10.2); Potassium 4.2 mmol/L (3.5-5.1); Total Bilirubin 0.7 mg/dL (0.2-1.3); Total Protein 7.2 g/dL (6.3-8.2)
[2019-09-18 15:17] LABS: Basophils % (A) 0 %; Eosinophils # (A) 0.2 k/uL (0-0.7); Eosinophils % (A) 2 %; HCT 32.8 % (39.0-53.0); Lymphocytes # (A) 1.3 k/uL (1.0-4.8); Lymphocytes % (A) 13 %; MCH 31.7 pg (25.0-35.0); MCHC 33.4 g/dL (31.0-37.0); MCV 94.9 fL (80.0-100.0); Mean Platelet Volume 8.3; Monocytes # (A) 0.6 k/uL (0-1.0); Monocytes % (A) 6 %; Neutrophils # (A) 7.8 k/uL (1.3-7.7); Neutrophils % (A) 77 %; Platelet Count 212 k/uL (150-450); RBC 3.46 m/uL (4.30-5.90); RDW 13.9 % (11.5-15.5)
[2019-09-18] MEDS ORDERED: DIAZEPAM 5 MG/ML 2 ML INJ IVP STA (15:22)
[2019-09-18] MEDS ORDERED: MORPHINE SULFATE 4 MG/ML SYRINGE IVP STA (15:22)
[2019-09-18 15:42] LABS: Appearance,Urine Cloudy (Clear); Bilirubin,Urine Negative (Negative); Blood,Urine Trace (Negative); Color,Urine Yellow; Glucose,Urine (UA) Negative (Negative); Ketones,Urine Negative (Negative); Leukocyte Esterase,Urine Large (Negative); Nitrite,Urine Negative (Negative); Protein,Urine 2+ (Negative); RBC,Urine 7 /hpf (0-5); Specific Gravity,Urine 1.012 (1.001-1.035); Squamous Epithelial Cell,Urine 1 /hpf (0-4); Urobilinogen,Urine <2.0 mg/dL (<2.0); WBC,Urine 79 /hpf (0-5)
--- NOTE | 2019-09-18 15:55 | XR ---
EXAMINATION TYPE: XR chest 2V DATE OF EXAM: 09/18/2019 COMPARISON: 01/31/2018 HISTORY: Shortness of breath TECHNIQUE: Frontal and lateral views of the chest are obtained. FINDINGS: Scattered senescent parenchymal changes noted. Hyperinflation compatible with COPD. No evidence for infiltrate. No evidence for atelectasis. Heart size is stable. Mediastinal structures are stable and grossly unremarkable. No evidence for hilar prominence. Degenerative changes dorsal spine. IMPRESSION: 1. No evidence for acute pulmonary disease.
--- NOTE | 2019-09-18 16:01 | ED ---
General Adult HPI - General Chief complaint: Back Pain/Injury Stated complaint: Back pain Time Seen by Provider: 09/18/19 14:14 Source: patient, EMS, RN notes reviewed, old records reviewed Mode of arrival: EMS Limitations: physical limitation - History of Present Illness Initial comments: 89-year-old male with chronic back pain presenting with back pain and spasms. Patient's had called EMS from dialysis. He receives dialysis Saturday with history of end-stage renal disease. He's had chronic back pain for some time, denies any new injury. He states he has pain from time to time, sometimes worse with hemodialysis. Denies chest pain. Denies abdominal pain. Denies fever or chills. Denies nausea vomiting. - Related Data Home Medications Medication Instructions Recorded Confirmed Aspirin EC [Ecotrin Low Dose] 81 mg PO Q48H 02/08/16 08/17/19 Atorvastatin [Lipitor] 10 mg PO HS 02/08/16 08/17/19 Insulin Detemir [Levemir Flextouch] 30 units SQ QAM 02/08/16 08/17/19 Multivitamins, Thera [Multivitamin 1 tab PO DAILY 02/08/16 08/17/19 (formulary)] Cholecalciferol [Vitamin D3 (25 2,000 unit PO DAILY 10/20/16 08/17/19 Mcg = 1000 Iu)] Ubidecarenone [Co Q-10] 30 mg PO DAILY 10/20/16 08/17/19 [place] K 1 tab PO DAILY 12/15/17 08/17/19 Prosynbiotic 1 tab PO BID 12/15/17 08/17/19 Acetaminophen Tab [Tylenol] 325 mg PO Q6HR PRN 08/17/19 08/17/19 Albuterol Sulfate [Ventolin HFA] 1 puff INHALATION RT-BID PRN 08/17/19 08/17/19 Calcium Acetate [PhosLo] 1,334 mg PO TID-W/MEALS 08/17/19 08/17/19 Cinnamon Bark 600mg 600 mg PO DAILY 08/17/19 08/17/19 Cyclobenzaprine [Flexeril] 10 mg PO DAILY PRN 08/17/19 08/17/19 Cyclobenzaprine [Flexeril] 10 mg PO Q8H PRN 08/17/19 08/17/19 Docusate Sodium [Dok] 100 mg PO DAILY PRN 08/17/19 08/17/19 EPINEPHrine (Auto Inject) [Epipen] 0.3 mg IM ONCE PRN 08/17/19 08/17/19 [place] Cough Drops 1 lozenge MUCOUS MEM Q2H PRN 08/17/19 08/17/19 Insulin Aspart [NovoLOG Flexpen] 4 units SQ AC-BRKFST PRN 08/17/19 08/17/19 Insulin Aspart [NovoLOG Flexpen] 5 units SQ AC-LUNCH PRN 08/17/19 08/17/19 Latanoprost [Xelpros] 1 drop BOTH EYES HS 08/17/19 08/17/19 Magnesium Glycinate 400mg 400 mg PO BID 08/17/19 08/17/19 Mct Oil 1 oz PO BID 08/17/19 08/17/19 Tussin Syrup 10 ml PO Q6H PRN 08/17/19 08/17/19 traMADol HCL 50 mg PO BID PRN 08/17/19 08/17/19 Previous Rx's Medication Instructions Recorded Omeprazole [PriLOSEC] 20 mg PO AC-BRKFST #30 cap 11/16/16 HYDROcodone/APAP 5-325MG [[place] 1 each PO Q6HR PRN #10 tab 08/18/19 5-325] Allergies Allergy/AdvReac Type Severity Reaction Status Date / Time Penicillins Allergy Unknown Verified 08/17/19 14:30 Childhood Sulfa (Sulfonamide Allergy Unknown Verified 08/17/19 14:30 Antibiotics) Childhood Review of Systems ROS Statement: Those systems with pertinent positive or pertinent negative responses have been documented in the HPI. ROS Other: All systems not noted in ROS Statement are negative. Past Medical History Past Medical History: Dementia, Dialysis, Hyperlipidemia, Hypertension Additional Past Medical History / Comment(s): kidney failure, colon ca, dialysis mwf History of Any Multi-Drug Resistant Organisms: None Reported Date of last positivie culture/infection: None MDRO Source:: None Past Surgical History: Bowel Resection, Heart Catheterization With Stent Additional Past Surgical History / Comment(s): colostomy 2010 Past Anesthesia/Blood Transfusion Reactions: No Reported Reaction Date of Last Stent Placement:: 2009 Past Psychological History: No Psychological Hx Reported Smoking Status: Former smoker Past Alcohol Use History: Occasional Past Drug Use History: None Reported - Past Family History Father Family Medical History: No Reported History Mother Family Medical History: No Reported History General Exam Limitations: physical limitation General appearance: alert, in no apparent distress Head exam: Present: atraumatic, normocephalic Eye exam: Present: normal appearance, PERRL ENT exam: Present: normal exam Neck exam: Present: normal inspection. Absent: tenderness, meningismus Respiratory exam: Present: normal lung sounds bilaterally. Absent: respiratory distress, wheezes, rales, rhonchi Cardiovascular Exam: Present: regular rate, normal rhythm GI/Abdominal exam: Present: soft. Absent: distended, tenderness Extremities exam: Present: normal inspection, normal capillary refill. Absent: pedal edema Back exam: Present: paraspinal tenderness (Thoracic paraspinal muscle spasm and tenderness) Neurological exam: Present: alert, oriented X3 Course Vital Signs 09/18/19 09/18/19 13:34 15:28 Temperature 97.4 F L Pulse Rate 93 81 Respiratory 18 18 Rate Blood Pressure 106/60 146/71 O2 Sat by Pulse 95 99 Oximetry Medical Decision Making - Medical Decision Making 89-year-old male with end-stage renal disease presenting from hemodialysis with complaints of back pain. Patient has chronic back pain. Patient had initially informed me that he had received hemodialysis today, later I was contacted by the hemodialysis center stating that he did not receive hemodialysis today and could not receive hemodialysis tomorrow because his schedule was full. This would leave the patient with approximately one week without hemodialysis. Laboratory studies were obtained, he has a normal potassium, chest x-ray negativ e for significant pulmonary edema or effusions. He is breathing room air although his oxygen saturation is in the low 90s. He is felt to be safer to keep this patient as an inpatient for pain control for his chronic back pain as well as need for hemodialysis tomorrow morning. Case is discussed with the admitting physician Dr. Stover and nephrology will be placed on consult. - Lab Data Result diagrams: 09/18/19 13:43 09/18/19 13:43 Lab Results 09/18/19 09/18/19 09/18/19 Range/Units 13:43 13:43 15:30 WBC 10.0 (3.8-10.6) k/uL RBC 3.46 L (4.30-5.90) m/uL Hgb 11.0 L (13.0-17.5) gm/dL Hct 32.8 L (39.0-53.0) % MCV 94.9 (80.0-100.0) fL MCH 31.7 (25.0-35.0) pg MCHC 33.4 (31.0-37.0) g/dL RDW 13.9 (11.5-15.5) % Plt Count 212 (150-450) k/uL Neutrophils % 77 % Lymphocytes % 13 % Monocytes % 6 % Eosinophils % 2 % Basophils % 0 % Neutrophils # 7.8 H (1.3-7.7) k/uL Lymphocytes # 1.3 (1.0-4.8) k/uL Monocytes # 0.6 (0-1.0) k/uL Eosinophils # 0.2 (0-0.7) k/uL Basophils # 0.0 (0-0.2) k/uL Sodium 138 (137-145) mmol/L Potassium 4.2 (3.5-5.1) mmol/L Chloride 100 (98-107) mmol/L Carbon Dioxide 26 (22-30) mmol/L Anion Gap 12 mmol/L BUN 35 H (9-20) mg/dL Creatinine 9.35 H* (0.66-1.25) mg/dL Est GFR (CKD-EPI)AfAm 5 (>60 ml/min/1.73 sqM) Est GFR (CKD-EPI)NonAf 4 (>60 ml/min/1.73 sqM) Glucose 99 (74-99) mg/dL Calcium 9.5 (8.4-10.2) mg/dL Total Bilirubin 0.7 (0.2-1.3) mg/dL AST 29 (17-59) U/L ALT 12 (4-49) U/L Alkaline Phosphatase 86 (38-126) U/L Total Protein 7.2 (6.3-8.2) g/dL Albumin 4.3 (3.5-5.0) g/dL Urine Color Yellow Urine Appearance Cloudy (Clear) Urine pH 8.0 (5.0-8.0) Ur Specific [place] 1.012 (1.001-1.035) Urine Protein 2+ H (Negative) Urine Glucose (UA) Negative (Negative) Urine Ketones Negative (Negative) Urine Blood Trace H (Negative) Urine Nitrite Negative (Negative) Urine Bilirubin Negative (Negative) Urine Urobilinogen <2.0 (<2.0) mg/dL Ur Leukocyte Esterase Large H (Negative) Urine RBC 7 H (0-5) /hpf Urine WBC 79 H (0-5) /hpf Ur Squamous Epith Cells 1 (0-4) /hpf Disposition Clinical Impression: Back spasm, ESRD (end stage renal disease) on dialysis Disposition: ADMITTED IP TO THIS [facility] Condition: Stable Is patient prescribed a controlled substance at d/c from ED?: No Referrals: Chace Marshall MD [Primary Care Provider] - 1-2 days Decision to Admit Reason: Admit from EC Decision Date: 09/18/19 Decision Time: 17:18
[2019-09-18] MEDS ORDERED: NALOXONE 0.4 MG/ML 1 ML VIAL IV PRN (17:01)
[2019-09-18] MEDS ORDERED: ACETAMINOPHEN TAB 325 MG TAB PO PRN ×2 (17:06→19:22)
[2019-09-18] MEDS ORDERED: guaiFENesin SYRUP 100MG/5ML 200 MG/10 ML CUP PO PRN (19:22)
[2019-09-18] MEDS ORDERED: INSULIN ASPART (NovoLOG) 100 UNIT/ML VIAL SQ PRN ×2 (19:22)
[2019-09-18] MEDS ORDERED: DOCUSATE 100 MG CAP PO PRN (19:22)
[2019-09-18] MEDS ORDERED: ALBUTEROL NEBULIZED 2.5 MG/3 ML INHALATION PRN (19:22)
[2019-09-18] MEDS ORDERED: EPINEPHrine 1 MG/ML 1 ML AMP IM PRN (19:22)
--- NOTE | 2019-09-18 19:28 | P.HPIM ---
History of Present Illness Patient came to ER with back spasms. Patient evidently was seen in hemodialysis as per the patient initially told me that he didn't miss to hemodialysis when questioned further he says he may have missed one session of hemodialysis patient is not sure why. Patient is complaining of back spasms. Patient uses Flexeril at home. Patient chest x-ray reviewed by me did show pulmonary edema and patient does have crackles on exam although it was read as no acute changes. She does Saturday hemodialysis sessions and patient didn't complete him see more dialysis today patient denied any fever chills nausea vomiting. Patient is bit slow in answering questions. Review of Systems REVIEW OF SYSTEMS: CONSTITUTIONAL: No fever, no malaise, no fatigue. HEENT: No recent visual problems or hearing problems. Denied any sore throat. CARDIOVASCULAR: No chest pain, orthopnea, PND, no palpitations, no syncope. PULMONARY: No shortness of breath, no cough, no hemoptysis. GASTROINTESTINAL: No diarrhea, no nausea, no vomiting, no abdominal pain. NEUROLOGICAL: No headaches, no weakness, no numbness. HEMATOLOGICAL: Denies any bleeding or petechiae. GENITOURINARY: Denies any burning micturition, frequency, or urgency. MUSCULOSKELETAL/RHEUMATOLOGICAL: Denies any joint pain, swelling, back spasms as mentioned above ENDOCRINE: Denies any polyuria or polydipsia. The rest of the 14-point review of systems is negative. Past Medical History Past Medical History: Dementia, Dialysis, Hyperlipidemia, Hypertension Additional Past Medical History / Comment(s): kidney failure, colon ca, dialysis mwf History of Any Multi-Drug Resistant Organisms: None Reported Date of last positivie culture/infection: None MDRO Source:: None Past Surgical History: Bowel Resection, Heart Catheterization With Stent Additional Past Surgical History / Comment(s): colostomy 2010 Past Anesthesia/Blood Transfusion Reactions: No Reported Reaction Date of Last Stent Placement:: 2009 Past Psychological History: No Psychological Hx Reported Smoking Status: Former smoker Past Alcohol Use History: Occasional Past Drug Use History: None Reported - Past Family History Father Family Medical History: No Reported History Mother Family Medical History: No Reported History Medications and Allergies Home Medications Medication Instructions Recorded Confirmed Type Aspirin EC [Ecotrin Low Dose] 81 mg PO Q48H 02/08/16 09/18/19 History Atorvastatin [Lipitor] 10 mg PO HS@1900 02/08/16 09/18/19 History Insulin Detemir [Levemir Flextouch] 30 units SQ QAM@0700 02/08/16 09/18/19 History Multivitamins, Thera [Multivitamin 1 tab PO DAILY@0700 02/08/16 09/18/19 History (formulary)] Cholecalciferol [Vitamin D3 (25 2,000 unit PO DAILY@0700 10/20/16 09/18/19 History Mcg = 1000 Iu)] Ubidecarenone [Co Q-10] 30 mg PO DAILY@0700 10/20/16 09/18/19 History [place] K 1 tab PO DAILY@0700 12/15/17 09/18/19 History Prosynbiotic 1 tab PO BID@0700,1900 12/15/17 09/18/19 History Acetaminophen Tab [Tylenol] 325 mg PO Q6HR PRN 08/17/19 09/18/19 History Albuterol Sulfate [Ventolin HFA] 1 puff INHALATION RT-BID PRN 08/17/19 09/18/19 History Calcium Acetate [PhosLo] 1,334 mg PO TID@0700,1200,1700 08/17/19 09/18/19 History Cinnamon Bark 600mg 600 mg PO DAILY@0700 08/17/19 09/18/19 History Cyclobenzaprine [Flexeril] 10 mg PO Q6H PRN 08/17/19 09/18/19 History Docusate Sodium [Dok] 100 mg PO DAILY PRN 08/17/19 09/18/19 History EPINEPHrine (Auto Inject) [Epipen] 0.3 mg IM ONCE PRN 08/17/19 09/18/19 History [place] Cough Drops 1 lozenge MUCOUS MEM Q2H PRN 08/17/19 09/18/19 History Insulin Aspart [NovoLOG Flexpen] 4 units SQ AC-BRKFST PRN 08/17/19 09/18/19 History Insulin Aspart [NovoLOG Flexpen] 5 units SQ AC-LUNCH PRN 08/17/19 09/18/19 History Magnesium Glycinate 400mg 400 mg PO BID@0700,1900 08/17/19 09/18/19 History Mct Oil 1 oz PO BID@0700,1700 08/17/19 09/18/19 History traMADol HCL 50 mg PO BID PRN 08/17/19 09/18/19 History Latanoprost/Pf [Latanoprost 0.005% 1 drop BOTH EYES HS@1900 09/18/19 09/18/19 History Eye Drop] Omeprazole [PriLOSEC] 20 mg PO DAILY@0700 09/18/19 09/18/19 History guaiFENesin SYRUP 100MG/5ML 200 mg PO Q6H PRN 09/18/19 09/18/19 History [Robitussin] Allergies Allergy/AdvReac Type Severity Reaction Status Date / Time Penicillins Allergy Unknown Verified 09/18/19 18:49 Childhood Sulfa (Sulfonamide Allergy Unknown Verified 09/18/19 18:49 Antibiotics) Childhood Physical Exam Vitals: Vital Signs Temp Pulse Resp BP Pulse Ox 09/18/19 18:21 97.4 F L 81 18 164/75 97 09/18/19 17:43 81 18 164/75 97 09/18/19 15:28 81 18 146/71 99 09/18/19 13:34 97.4 F L 93 18 106/60 95 Intake and Output 09/18/19 09/18/19 09/18/19 06:59 14:59 22:59 Other: Weight 95.254 kg PHYSICAL EXAMINATION: GENERAL: The patient is alert and oriented x3, not in any acute distress. Well developed, well nourished. HEENT: Pupils are round and equally reacting to light. EOMI. No scleral icterus. No conjunctival pallor. Normocephalic, atraumatic. No pharyngeal erythema. No thyromegaly. CARDIOVASCULAR: S1 and S2 present. No murmurs, rubs, or gallops. PULMONARY: Chest is clear to auscultation, no wheezing or crackles. ABDOMEN: Soft, nontender, nondistended, normoactive bowel sounds. No palpable o rganomegaly. MUSCULOSKELETAL: No joint swelling or deformity. EXTREMITIES: No cyanosis, clubbing, or pedal edema. NEUROLOGICAL: Gross neurological examination did not reveal any focal deficits. SKIN: No rashes. Results CBC & Chem 7: 09/18/19 13:43 09/18/19 13:43 Labs: Abnormal Lab Results - Last 24 Hours (Table) 09/18/19 09/18/19 09/18/19 Range/Units 13:43 13:43 15:30 RBC 3.46 L (4.30-5.90) m/uL Hgb 11.0 L (13.0-17.5) gm/dL Hct 32.8 L (39.0-53.0) % Neutrophils # 7.8 H (1.3-7.7) k/uL BUN 35 H (9-20) mg/dL Creatinine 9.35 H* (0.66-1.25) mg/dL Urine Protein 2+ H (Negative) Urine Blood Trace H (Negative) Ur Leukocyte Esterase Large H (Negative) Urine RBC 7 H (0-5) /hpf Urine WBC 79 H (0-5) /hpf Assessment and Plan Plan: Volume overload pulmonary edema secondary to missing hemodialysis: Nephrology was consulted patient may need hemanalysis tomorrow. 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
[2019-09-18] MEDS: HYDROmorphone 0.5 MG/0.5 ML SYRINGE IVP PRN (20:05)
[2019-09-18] MEDS: HEPARIN SODIUM,PORCINE 5,000 UNIT/ML 1 ML VIAL SQ SCH (20:41)
[2019-09-18] MEDS: CYCLOBENZAPRINE 10 MG TAB PO PRN (20:42)
[2019-09-18 21:07] LABS: Glucose,Whole Blood 124 mg/dL (75-99)
[2019-09-19] MEDS ORDERED: MAGNESIUM OXIDE 400 MG TAB PO SCH (07:00)
[2019-09-19 07:11] LABS: Glucose,Whole Blood 86 mg/dL (75-99)
[2019-09-19 07:58] LABS: Basophils # (A) 0.1 k/uL (0-0.2); Basophils % (A) 1 %; Eosinophils # (A) 0.4 k/uL (0-0.7); Eosinophils % (A) 5 %; HGB 11.5 gm/dL (13.0-17.5); Lymphocytes # (A) 1.9 k/uL (1.0-4.8); Lymphocytes % (A) 23 %; MCH 32.1 pg (25.0-35.0); MCHC 32.8 g/dL (31.0-37.0); MCV 97.7 fL (80.0-100.0); Mean Platelet Volume 8.3; Monocytes # (A) 0.6 k/uL (0-1.0); Monocytes % (A) 7 %; Neutrophils # (A) 5.2 k/uL (1.3-7.7); Neutrophils % (A) 62 %; Platelet Count 194 k/uL (150-450); RBC 3.58 m/uL (4.30-5.90); RDW 13.9 % (11.5-15.5); WBC 8.3 k/uL (3.8-10.6)
[2019-09-19] MEDS: CYCLOBENZAPRINE 10 MG TAB PO PRN ×2 (08:18→14:21)
[2019-09-19 08:21] LABS: Calcium 9.4 mg/dL (8.4-10.2)
[2019-09-19] MEDS: traMADol 50 MG TAB PO PRN (08:25)
[2019-09-19] MEDS: MULTIVITAMINS, THERA 1 EACH TAB PO SCH (08:26)
[2019-09-19] MEDS: CHOLECALCIFEROL 1,000 UNIT TAB PO SCH (08:26)
[2019-09-19] MEDS: ASPIRIN 81 MG PO SCH (08:26)
[2019-09-19] MEDS: HEPARIN SODIUM,PORCINE 5,000 UNIT/ML 1 ML VIAL SQ SCH ×2 (08:26→14:18)
[2019-09-19] MEDS: PANTOPRAZOLE 40 MG TABLET PO SCH (08:26)
[2019-09-19] MEDS: INSULIN DETEMIR (LEVEMIR) 100 UNIT/ML SYR SQ SCH (08:27)
[2019-09-19] MEDS: CALCIUM ACETATE 667 MG TAB PO SCH ×3 (08:27→17:37)
[2019-09-19 08:34] LABS: Phosphorus 5.2 mg/dL (2.5-4.5); Potassium 5.5 mmol/L (3.5-5.1)
--- NOTE | 2019-09-19 08:36 | P.NPCON ---
History of Present Illness - Reason for Consult end stage renal disease - History of Present Illness Reason for consultation: End-stage renal disease History of present illness: Patient is a 89-year-old male seen in consultation for end-stage renal disease. Patient is maintained on hemodialysis on Saturday schedule via right upper extremity AV fistula. Patient went for hemodialysis yesterday but was sent to the hospital due to back spasms. Currently the patient is having breakfast. He denies any complaints. No pain in his lower back. Patient is eager to go home. Denies fever or chills. No nausea or vomiting. No diarrhea. Hemodynamically stable. Denies chest pain or shortness of breath. Vital signs are stable. General: The patient appeared well nourished and normally developed. HEENT: Head exam is unremarkable. Neck is without jugular venous distension. LUNGS: Lungs are clear to auscultation and percussion. Breath sounds decreased. HEART: Rate and Rhythm are regular. First and second heart sounds normal. No murmurs, rubs or gallops. ABDOMEN: Abdominal exam reveals normal bowel sounds. Non-tender and non- distended. No evidence of peritonitis. EXTREMITITES: No clubbing, cyanosis, or edema. Past Medical History Past Medical History: Dementia, Dialysis, Hyperlipidemia, Hypertension Additional Past Medical History / Comment(s): kidney failure, colon ca, dialysis mwf History of Any Multi-Drug Resistant Organisms: None Reported Date of last positivie culture/infection: None MDRO Source:: None Past Surgical History: Bowel Resection, Heart Catheterization With Stent Additional Past Surgical History / Comment(s): colostomy 2010 Past Anesthesia/Blood Transfusion Reactions: No Reported Reaction Date of Last Stent Placement:: 2009 Past Psychological History: No Psychological Hx Reported Smoking Status: Former smoker Past Alcohol Use History: Occasional Past Drug Use History: None Reported - Past Family History Father Family Medical History: No Reported History Mother Family Medical History: No Reported History Medications and Allergies Home Medications Medication Instructions Recorded Confirmed Type Aspirin EC [Ecotrin Low Dose] 81 mg PO Q48H 02/08/16 09/18/19 History Atorvastatin [Lipitor] 10 mg PO HS@1900 02/08/16 09/18/19 History Insulin Detemir [Levemir Flextouch] 30 units SQ QAM@0700 02/08/16 09/18/19 History Multivitamins, Thera [Multivitamin 1 tab PO DAILY@0700 02/08/16 09/18/19 History (formulary)] Cholecalciferol [Vitamin D3 (25 2,000 unit PO DAILY@0700 10/20/16 09/18/19 History Mcg = 1000 Iu)] Ubidecarenone [Co Q-10] 30 mg PO DAILY@0700 10/20/16 09/18/19 History [place] K 1 tab PO DAILY@0700 12/15/17 09/18/19 History Prosynbiotic 1 tab PO BID@0700,1900 12/15/17 09/18/19 History Acetaminophen Tab [Tylenol] 325 mg PO Q6HR PRN 08/17/19 09/18/19 History Albuterol Sulfate [Ventolin HFA] 1 puff INHALATION RT-BID PRN 08/17/19 09/18/19 History Calcium Acetate [PhosLo] 1,334 mg PO TID@0700,1200,1700 08/17/19 09/18/19 History Cinnamon Bark 600mg 600 mg PO DAILY@0700 08/17/19 09/18/19 History Cyclobenzaprine [Flexeril] 10 mg PO Q6H PRN 08/17/19 09/18/19 History Docusate Sodium [Dok] 100 mg PO DAILY PRN 08/17/19 09/18/19 History EPINEPHrine (Auto Inject) [Epipen] 0.3 mg IM ONCE PRN 08/17/19 09/18/19 History [place] Cough Drops 1 lozenge MUCOUS MEM Q2H PRN 08/17/19 09/18/19 History Insulin Aspart [NovoLOG Flexpen] 4 units SQ AC-BRKFST PRN 08/17/19 09/18/19 History Insulin Aspart [NovoLOG Flexpen] 5 units SQ AC-LUNCH PRN 08/17/19 09/18/19 History Magnesium Glycinate 400mg 400 mg PO BID@0700,1900 08/17/19 09/18/19 History Mct Oil 1 oz PO BID@0700,1700 08/17/19 09/18/19 History traMADol HCL 50 mg PO BID PRN 08/17/19 09/18/19 History Latanoprost/Pf [Latanoprost 0.005% 1 drop BOTH EYES HS@1900 09/18/19 09/18/19 History Eye Drop] Omeprazole [PriLOSEC] 20 mg PO DAILY@0700 09/18/19 09/18/19 History guaiFENesin SYRUP 100MG/5ML 200 mg PO Q6H PRN 09/18/19 09/18/19 History [Robitussin] Allergies Allergy/AdvReac Type Severity Reaction Status Date / Time Penicillins Allergy Unknown Verified 09/18/19 18:49 Childhood Sulfa (Sulfonamide Allergy Unknown Verified 09/18/19 18:49 Antibiotics) Childhood Physical Exam Vitals: Vital Signs Temp Pulse Pulse Resp BP BP Pulse Ox 09/19/19 05:39 98.6 F 66 18 159/61 96 09/19/19 00:00 64 18 09/18/19 21:16 97.7 F 64 18 160/70 92 L 09/18/19 18:21 97.4 F L 81 18 164/75 97 09/18/19 17:43 81 18 164/75 97 09/18/19 15:28 81 18 146/71 99 09/18/19 13:34 97.4 F L 93 18 106/60 95 Intake and Output 09/18/19 09/19/19 09/19/19 22:59 06:59 14:59 Intake Total 590 240 Output Total 125 Balance -125 590 240 Intake: Oral 590 240 Output: Urine 125 Other: # Voids 1 2 Weight 95.254 kg Results - Lab Results Most recent lab results Calcium 9.5 mg/dL (8.4-10.2) 09/18/19 13:43 09/19/19 07:30 09/18/19 13:43 Assessment and Plan Plan: Assessment: 1. End-stage renal disease maintained on hemodialysis on Saturday schedule via right upper extremity AV fistula. 2. Back spasms. Resolved. 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 There is no evidence of fracture. 3. Hypertension with chronic kidney disease. 4. Insulin-dependent diabetes mellitus. 5. Chronic kidney disease mineral bone disease maintained on PhosLo. Plan: Hemodialysis today. Potential discharge after dialysis. Thank you for the consultation. I will continue to follow the patient with you during his hospital stay.
[2019-09-19] MEDS: HYDROmorphone 0.5 MG/0.5 ML SYRINGE IVP PRN (08:56)
[2019-09-19 11:30] LABS: Glucose,Whole Blood 167 mg/dL (75-99)
--- NOTE | 2019-09-19 11:57 | P.PN ---
Subjective Patient came to ER with back spasms. Patient evidently was seen in hemodialysis as per the patient initially told me that he didn't miss to hemodialysis when questioned further he says he may have missed one session of hemodialysis patient is not sure why. Patient is complaining of back spasms. Patient uses Flexeril at home. Patient chest x-ray reviewed by me did show pulmonary edema and patient does have crackles on exam although it was read as no acute changes. She does Saturday hemodialysis sessions and patient didn't c omplete him see more dialysis today patient denied any fever chills nausea vomiting. Patient is bit slow in answering questions. 09/19/2019 This is a pleasant 89 years old male with history of colorectal cancer status post right colostomy, is also end-stage renal disease on hemodialysis. The estela ent presents because of spasm in his back. He was at hemodialysis and underwent he has severe back spasms that they could not even get lines for him to get hemodialysis so they sent him to the emergency room. Information were taken from the patient and dialysis nurse at bedside. Patient states that he has these back spasms for the last almost every 2-3 weeks they were about 90/10 in severity and usually last for 2 hours however when he came to the hospital that day it lasted longer about 3-4 hours which was unusual for him so decided to come to the hospital. Patient states that this spasm this between his shoulder blades and the middle and also lower down the spine. Patient denies weakness or numbness in his lower extremity, he denies to anesthesia. No urine or bowel incontinence. No other complaints Today patient was getting dialysis with no other complaints. He states that he has no more spasm or back pain and he rates it as 0/10. No headache. No weakness or numbness in other extremities. At baseline and he was using a walker Review of systems CONSTITUTIONAL: No fever, no malaise, no fatigue. HEENT: No recent visual problems or hearing problems. Denied any sore throat. CARDIOVASCULAR: No orthopnea, PND, no palpitations, no syncope. PULMONARY: No shortness of breath, no cough, no hemoptysis. GASTROINTESTINAL: No diarrhea, no nausea, no vomiting, no abdominal pain. Normoactive bowel sounds. NEUROLOGICAL: No headaches, no weakness, no numbness. HEMATOLOGICAL: Denies any bleeding or petechiae. GENITOURINARY: Denies any burning micturition, frequency, or urgency. MUSCULOSKELETAL/RHEUMATOLOGICAL: Denies any joint pain, swelling, or any muscle pain. ENDOCRINE: Denies any polyuria or polydipsia. Active Medications Generic Name Dose Route Start Last Admin Trade Name Freq PRN Reason Stop Dose Admin Acetaminophen 650 mg 09/18/19 17:06 Tylenol Tab PO Q6HR PRN Mild Pain or Fever > 100.5 Albuterol Sulfate 2.5 mg 09/18/19 19:22 Ventolin Nebulized INHALATION RT-BID PRN Shortness Of Breath Aspirin 81 mg 09/19/19 09:00 09/19/19 08:26 Aspirin PO 81 mg Q48H [facility] Administration Atorvastatin Calcium 10 mg 09/19/19 19:00 Lipitor PO HS@1900 [facility] Calcium Acetate 1,334 mg 09/19/19 07:30 09/19/19 08:27 Phoslo PO 1,334 mg TID-W/MEALS [facility] Administration Cholecalciferol 2,000 unit 09/19/19 07:00 09/19/19 08:26 Vitamin D3 (25 Mcg = 1000 Iu) PO 2,000 unit DAILY@0700 [facility] Administration Cyclobenzaprine HCl 10 mg 09/18/19 19:22 09/19/19 08:18 Flexeril PO 10 mg Q6H PRN Administration Muscle Spasm Docusate Sodium 100 mg 09/18/19 19:22 Colace PO DAILY PRN Constipation Epinephrine HCl 0.3 mg 09/18/19 19:22 Adrenalin IM ONCE PRN Anaphylaxis Guaifenesin 200 mg 09/18/19 19:22 Robitussin PO Q6H PRN Cough Heparin Sodium (Porcine) 5,000 unit 09/19/19 00:00 09/19/19 08:26 Heparin SQ 5,000 unit Q8HR [facility] Administration Hydromorphone HCl 0.5 mg 09/18/19 17:06 09/19/19 08:56 Dilaudid IVP 0.5 mg Q3HR PRN Administration Moderate Pain Insulin Aspart 4 unit 09/18/19 19:22 Novolog SQ AC-BRKFST PRN SUGAR OVER 125 Insulin Aspart 5 unit 09/18/19 19:22 Novolog SQ AC-LUNCH PRN SUGAR OVER 125 Insulin Detemir 30 unit 09/19/19 07:00 09/19/19 08:27 Levemir SQ 30 unit QAM@0700 [facility] Administration Latanoprost 1 drops 09/19/19 19:00 Xalatan 0.005% BOTH EYES HS@1900 [facility] Multivitamins 1 each 09/19/19 07:00 09/19/19 08:26 Theragran PO 1 each DAILY@0700 [facility] Administration Naloxone HCl 0.2 mg 09/18/19 17:01 Narcan IV Q2M PRN Opioid Reversal Pantoprazole Sodium 40 mg 09/19/19 07:00 09/19/19 08:26 Protonix PO 40 mg DAILY@0700 [facility] Administration Tramadol HCl 50 mg 09/18/19 19:22 09/19/19 08:25 Ultram PO 50 mg BID PRN Administration Pain Objective - Vital Signs Vital signs: Vital Signs Temp 98.6 F 09/19/19 05:39 Pulse 66 09/19/19 08:20 Resp 18 09/19/19 08:20 BP 159/61 09/19/19 05:39 Pulse Ox 96 09/19/19 05:39 Intake & Output 09/18/19 09/19/19 09/19/19 18:59 06:59 18:59 Intake Total 590 240 Output Total 125 Balance 465 240 Weight 95.254 kg Intake: Oral 590 240 Output: Urine 125 Other: # Voids 2 - Exam GENERAL: The patient is alert and oriented x3, not in any acute distress. Well developed, well nourished. HEENT: Pupils are round and equally reacting to light. EOMI. No scleral icterus. No conjunctival pallor. Normocephalic, atraumatic. No pharyngeal erythema. No thyromegaly. CARDIOVASCULAR: S1 and S2 present. No murmurs, rubs, or gallops. PULMONARY: Chest is clear to auscultation, no wheezing or crackles. ABDOMEN: Soft, nontender, nondistended, normoactive bowel sounds. No palpable organomegaly. MUSCULOSKELETAL: No joint swelling or deformity. -EXTREMITIES: No cyanosis, clubbing, or pedal edema. Right upper extremity fistula for hemodialysis NEUROLOGICAL: Gross neurological examination did not reveal any focal deficits. SKIN: No rashes. no petechiae. - Labs CBC & Chem 7: 09/19/19 07:30 09/19/19 07:30 Labs: Abnormal Lab Results - Last 24 Hours (Table) 09/18/19 09/18/19 09/18/19 Range/Units 13:43 13:43 15:30 RBC 3.46 L (4.30-5.90) m/uL Hgb 11.0 L (13.0-17.5) gm/dL Hct 32.8 L (39.0-53.0) % Neutrophils # 7.8 H (1.3-7.7) k/uL Potassium (3.5-5.1) mmol/L BUN 35 H (9-20) mg/dL Creatinine 9.35 H* (0.66-1.25) mg/dL POC Glucose (mg/dL) (75-99) mg/dL Phosphorus (2.5-4.5) mg/dL Urine Protein 2+ H (Negative) Urine Blood Trace H (Negative) Ur Leukocyte Esterase Large H (Negative) Urine RBC 7 H (0-5) /hpf Urine WBC 79 H (0-5) /hpf 09/18/19 09/19/19 09/19/19 Range/Units 21:06 07:30 07:30 RBC 3.58 L (4.30-5.90) m/uL Hgb 11.5 L (13.0-17.5) gm/dL Hct 35.0 L (39.0-53.0) % Neutrophils # (1.3-7.7) k/uL Potassium 5.5 H (3.5-5.1) mmol/L BUN 45 H (9-20) mg/dL Creatinine 9.61 H* (0.66-1.25) mg/dL POC Glucose (mg/dL) 124 H (75-99) mg/dL Phosphorus 5.2 H (2.5-4.5) mg/dL Urine Protein (Negative) Urine Blood (Negative) Ur Leukocyte Esterase (Negative) Urine RBC (0-5) /hpf Urine WBC (0-5) /hpf 09/19/19 Range/Units 11:28 RBC (4.30-5.90) m/uL Hgb (13.0-17.5) gm/dL Hct (39.0-53.0) % Neutrophils # (1.3-7.7) k/uL Potassium (3.5-5.1) mmol/L BUN (9-20) mg/dL Creatinine (0.66-1.25) mg/dL POC Glucose (mg/dL) 167 H (75-99) mg/dL Phosphorus (2.5-4.5) mg/dL Urine Protein (Negative) Urine Blood (Negative) Ur Leukocyte Esterase (Negative) Urine RBC (0-5) /hpf Urine WBC (0-5) /hpf Assessment and Plan Assessment: Back spasm for the last 2 months End-stage renal disease on hemodialysis History of colorectal cancer status post right colostomy since 2010 Dementia Hyperlipidemia Hypertension Plan: This is a pleasant 89 years old male who presents with fluid overload and back spasm. Continue with hemodialysis. Given patient history of colorectal cancer with order x-rays of the thoracic and lumbar spines. Continue with nephrology consult Labs and medication were reviewed.. Continue same treatment. Continue with symptomatic treatment. Resume home medication. Monitor lytes and vitals. DVT and GI prophylaxis. Further recommendations of the clinical course of the patient DVT prophylaxis: Subcutaneous heparin GI Prophylaxis: Ppi Prognosis is guarded
--- NOTE | 2019-09-19 16:20 | XR ---
EXAMINATION TYPE: XR lumbar spine 2 or 3V DATE OF EXAM: 09/19/2019 COMPARISON: 12/15/2017 HISTORY: Back pain TECHNIQUE: 3 views FINDINGS: The vertebra have normal alignment. Posterior elements are intact. Abdominal aorta is ather omatous. There is no significant disc space narrowing. There is spurring of the endplates. Sacroiliac joints are intact IMPRESSION: Spondylotic changes. No fracture. No change compared to old exam. There is probably aneur ysm of the abdominal aorta measuring more than 3.5 cm.
--- NOTE | 2019-09-19 16:29 | XR ---
EXAMINATION TYPE: XR thoracic spine 2V DATE OF EXAM: 09/19/2019 COMPARISON: 02/08/2016 HISTORY: Back pain TECHNIQUE: 3 views FINDINGS: There is a slight dextroscoliosis. There is no thoracic compression fracture. There is oste openia. There is minor spurring of the endplates. There is no sign of thoracic paraspinal mass. Poste rior elements are intact. IMPRESSION: Mild multilevel spondylotic changes. No acute fracture. No adverse change compared to old exam.
[2019-09-19 17:09] LABS: Glucose,Whole Blood 132 mg/dL (75-99)
[2019-09-19] MEDS: ATORVASTATIN 10 MG TAB PO SCH (17:37)
[2019-09-19] MEDS: LATANOPROST 0.005% OPHTH DROPS 2.5 ML BTL BOTH EYES SCH (20:34)
[2019-09-19 20:39] LABS: Glucose,Whole Blood 140 mg/dL (75-99)
[2019-09-20] MEDS: traMADol 50 MG TAB PO PRN ×2 (00:27→16:45)
[2019-09-20] MEDS: HEPARIN SODIUM,PORCINE 5,000 UNIT/ML 1 ML VIAL SQ SCH ×4 (00:28→23:58)
[2019-09-20 07:06] LABS: Glucose,Whole Blood 91 mg/dL (75-99)
[2019-09-20] MEDS: INSULIN DETEMIR (LEVEMIR) 100 UNIT/ML SYR SQ SCH (07:25)
--- NOTE | 2019-09-20 07:28 | P.PN ---
Subjective Patient came to ER with back spasms. Patient evidently was seen in hemodialysis as per the patient initially told me that he didn't miss to hemodialysis when questioned further he says he may have missed one session of hemodialysis patient is not sure why. Patient is complaining of back spasms. Patient uses Flexeril at home. Patient chest x-ray reviewed by me did show pulmonary edema and patient does have crackles on exam although it was read as no acute changes. She does Saturday hemodialysis sessions and patient didn't c omplete him see more dialysis today patient denied any fever chills nausea vomiting. Patient is bit slow in answering questions. 09/19/2019 This is a pleasant 89 years old male with history of colorectal cancer status post right colostomy, is also end-stage renal disease on hemodialysis. The estela ent presents because of spasm in his back. He was at hemodialysis and underwent he has severe back spasms that they could not even get lines for him to get hemodialysis so they sent him to the emergency room. Information were taken from the patient and dialysis nurse at bedside. Patient states that he has these back spasms for the last almost every 2-3 weeks they were about 90/10 in severity and usually last for 2 hours however when he came to the hospital that day it lasted longer about 3-4 hours which was unusual for him so decided to come to the hospital. Patient states that this spasm this between his shoulder blades and the middle and also lower down the spine. Patient denies weakness or numbness in his lower extremity, he denies to anesthesia. No urine or bowel incontinence. No other complaints Today patient was getting dialysis with no other complaints. He states that he has no more spasm or back pain and he rates it as 0/10. No headache. No weakness or numbness in other extremities. At baseline and he was using a walker 09/20/2019 Patient is fully awake and oriented, is smiling this morning. No more spasm in his back. Lumbar and thoracic spine x-ray showing degenerative disease. Also possible abdominal aneurysm, we will check ultrasound for abdominal aneurysm. Patient is from assisted-living. He is getting hemodialysis today. Nephrology R on the case. Objective - Vital Signs Vital signs: Vital Signs Temp 97.6 F 09/20/19 05:00 Pulse 84 09/20/19 05:00 Resp 18 09/20/19 05:00 BP 155/73 09/20/19 05:00 Pulse Ox 95 09/20/19 05:00 Intake & Output 09/19/19 09/20/19 09/20/19 18:59 06:59 18:59 Intake Total 800 Output Total 2600 Balance -1800 Intake: Oral 400 Hemodialysis 400 Output: Urine 200 Hemodialysis 2400 Other: Voiding Method Toilet Urinal # Voids 2 3 - Exam GENERAL: The patient is alert and oriented x3, not in any acute distress. Well developed, well nourished. HEENT: Pupils are round and equally reacting to light. EOMI. No scleral icterus. No conjunctival pallor. Normocephalic, atraumatic. No pharyngeal erythema. No thyromegaly. CARDIOVASCULAR: S1 and S2 present. No murmurs, rubs, or gallops. PULMONARY: Chest is clear to auscultation, no wheezing or crackles. ABDOMEN: Soft, nontender, nondistended, normoactive bowel sounds. No palpable organomegaly. MUSCULOSKELETAL: No joint swelling or deformity. -EXTREMITIES: No cyanosis, clubbing, or pedal edema. Right upper extremity fistula for hemodialysis NEUROLOGICAL: Gross neurological examination did not reveal any focal deficits. SKIN: No rashes. no petechiae. - Labs CBC & Chem 7: 09/19/19 07:30 09/19/19 07:30 Labs: Abnormal Lab Results - Last 24 Hours (Table) 09/19/19 09/19/19 09/19/19 Range/Units 07:30 07:30 11:28 RBC 3.58 L (4.30-5.90) m/uL Hgb 11.5 L (13.0-17.5) gm/dL Hct 35.0 L (39.0-53.0) % Potassium 5.5 H (3.5-5.1) mmol/L BUN 45 H (9-20) mg/dL Creatinine 9.61 H* (0.66-1.25) mg/dL POC Glucose (mg/dL) 167 H (75-99) mg/dL Phosphorus 5.2 H (2.5-4.5) mg/dL 09/19/19 09/19/19 Range/Units 17:08 20:38 RBC (4.30-5.90) m/uL Hgb (13.0-17.5) gm/dL Hct (39.0-53.0) % Potassium (3.5-5.1) mmol/L BUN (9-20) mg/dL Creatinine (0.66-1.25) mg/dL POC Glucose (mg/dL) 132 H 140 H (75-99) mg/dL Phosphorus (2.5-4.5) mg/dL Assessment and Plan Assessment: Back spasm for the last 2 months End-stage renal disease on hemodialysis History of colorectal cancer status post right colostomy since 2010 Dementia Hyperlipidemia Hypertension Plan: This is a pleasant 89 years old male who presents with fluid overload and back spasm. Continue with hemodialysis. We will check abdominal ultrasound for AAA Continue with nephrology consult. Labs and medication were reviewed.. Continue same treatment. Continue with symptomatic treatment. Resume home medication. Monitor lytes and vitals. DVT and GI prophylaxis. Further recommendations of the clinical course of the patient DVT prophylaxis: Subcutaneous heparin GI Prophylaxis: Ppi Prognosis is guarded
--- NOTE | 2019-09-20 09:32 | P.PN ---
Subjective Patient is seen in follow-up for end-stage renal disease. He is maintained on hemodialysis on Saturday schedule. No active complaints at this time. Vital signs are stable. General: The patient appeared well nourished and normally developed. HEENT: Head exam is unremarkable. Neck is without jugular venous distension. LUNGS: Lungs are clear to auscultation and percussion. Breath sounds decreased. HEART: Rate and Rhythm are regular. First and second heart sounds normal. No murmurs, rubs or gallops. ABDOMEN: Abdominal exam reveals normal bowel sounds. Non-tender and non- distended. No evidence of peritonitis. EXTREMITITES: No clubbing, cyanosis, or edema. Objective - Vital Signs Vital signs: Vital Signs Temp 97.6 F 09/20/19 05:00 Pulse 84 09/20/19 08:40 Resp 18 09/20/19 08:40 BP 155/73 09/20/19 05:00 Pulse Ox 95 09/20/19 05:00 Intake & Output 09/19/19 09/20/19 09/20/19 18:59 06:59 18:59 Intake Total 800 Output Total 2600 Balance -1800 Intake: Oral 400 Hemodialysis 400 Output: Urine 200 Hemodialysis 2400 Other: Voiding Method Toilet Toilet Urinal Urinal # Voids 2 3 - Labs CBC & Chem 7: 09/19/19 07:30 09/19/19 07:30 Labs: Abnormal Lab Results - Last 24 Hours (Table) 09/19/19 09/19/19 09/19/19 Range/Units 11:28 17:08 20:38 POC Glucose (mg/dL) 167 H 132 H 140 H (75-99) mg/dL Assessment and Plan Plan: Assessment: 1. End-stage renal disease maintained on hemodialysis on Saturday schedule via right upper extremity AV fistula. 2. Back spasms. Resolved. 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 Imaging this admission revealed no evidence of fracture. 3. Hypertension with chronic kidney disease. 4. Insulin-dependent diabetes mellitus. 5. Chronic kidney disease mineral bone disease maintained on PhosLo. Plan: Currently seen while undergoing hemodialysis (getting dialysis today due to holiday schedule). Potential discharge after dialysis.
[2019-09-20] MEDS: MULTIVITAMINS, THERA 1 EACH TAB PO SCH (10:01)
[2019-09-20] MEDS: CALCIUM ACETATE 667 MG TAB PO SCH ×3 (10:01→16:46)
[2019-09-20] MEDS: PANTOPRAZOLE 40 MG TABLET PO SCH (10:01)
[2019-09-20] MEDS: CHOLECALCIFEROL 1,000 UNIT TAB PO SCH (10:01)
[2019-09-20 11:15] LABS: Glucose,Whole Blood 95 mg/dL (75-99)
--- NOTE | 2019-09-20 12:06 | US ---
EXAMINATION TYPE: US duplex aorta DATE OF EXAM: 09/20/2019 COMPARISON: X Ray 2019, CT 2018 CLINICAL HISTORY: Evaluate for abdominal aneurysm. Probable AAA seen on recent x ray, patient disorie nted: unable to obtain history, exam done portable. EXAM MEASUREMENTS: Abdominal Aorta: Proximal: 2.8 x 2.6cm Mid: 2.9 x 3.1cm Distal: 2.7 x 2.3cm Right Iliac: 1.2 x 1.0cm Left Iliac: 1.2 x 1.1cm Difficult and limited study due to patient motion during exam. Ectatic abdominal aorta with mid portion measuring mildly aneurysmal. Atherosclerotic changes noted. IMPRESSION: 1. There is a 3.1 cm abdominal aortic aneurysm the level the mid abdominal aorta. This is similar in appearance to the CT scan of the lumbar spine dated 08/12/2019.
[2019-09-20] MEDS: CYCLOBENZAPRINE 10 MG TAB PO PRN (16:45)
[2019-09-20 17:11] LABS: Glucose,Whole Blood 133 mg/dL (75-99)
[2019-09-20] MEDS: LATANOPROST 0.005% OPHTH DROPS 2.5 ML BTL BOTH EYES SCH (20:05)
[2019-09-20] MEDS: ATORVASTATIN 10 MG TAB PO SCH (20:05)
[2019-09-20 20:37] LABS: Glucose,Whole Blood 115 mg/dL (75-99)
[2019-09-21 07:05] LABS: Glucose,Whole Blood 90 mg/dL (75-99)
[2019-09-21] MEDS: CHOLECALCIFEROL 1,000 UNIT TAB PO SCH (07:57)
[2019-09-21] MEDS: PANTOPRAZOLE 40 MG TABLET PO SCH (07:57)
[2019-09-21] MEDS: ASPIRIN 81 MG PO SCH (07:57)
[2019-09-21] MEDS: CALCIUM ACETATE 667 MG TAB PO SCH ×3 (07:57→17:04)
[2019-09-21] MEDS: MULTIVITAMINS, THERA 1 EACH TAB PO SCH (07:57)
[2019-09-21] MEDS: HEPARIN SODIUM,PORCINE 5,000 UNIT/ML 1 ML VIAL SQ SCH ×3 (07:58→23:21)
[2019-09-21] MEDS: INSULIN DETEMIR (LEVEMIR) 100 UNIT/ML SYR SQ SCH (07:58)
--- NOTE | 2019-09-21 08:51 | P.PN ---
Subjective Patient is seen in follow-up for end-stage renal disease. He is maintained on hemodialysis on Saturday schedule. No active complaints at this time. Tolerated hemodialysis well yesterday. Eager to go home. Vital signs are stable. General: The patient appeared well nourished and normally developed. HEENT: Head exam is unremarkable. Neck is without jugular venous distension. LUNGS: Lungs are clear to auscultation and percussion. Breath sounds decreased. HEART: Rate and Rhythm are regular. First and second heart sounds normal. No murmurs, rubs or gallops. ABDOMEN: Abdominal exam reveals normal bowel sounds. Non-tender and non- distended. No evidence of peritonitis. EXTREMITITES: No clubbing, cyanosis, or edema. Objective - Vital Signs Vital signs: Vital Signs Temp 97.5 F L 09/21/19 04:53 Pulse 75 09/21/19 04:53 Resp 16 09/21/19 04:53 BP 160/68 09/21/19 04:53 Pulse Ox 93 L 09/21/19 04:53 Intake & Output 09/20/19 09/21/19 09/21/19 18:59 06:59 18:59 Intake Total 120 Output Total 1640 Balance -1520 Intake: Oral 120 Output: Urine 140 Hemodialysis 1500 Other: Voiding Method Toilet Toilet Urinal Urinal # Voids 1 - Labs CBC & Chem 7: 09/19/19 07:30 09/19/19 07:30 Labs: Abnormal Lab Results - Last 24 Hours (Table) 09/20/19 09/20/19 Range/Units 17:10 20:35 POC Glucose (mg/dL) 133 H 115 H (75-99) mg/dL Assessment and Plan Plan: Assessment: 1. End-stage renal disease maintained on hemodialysis on Saturday schedule via right upper extremity AV fistula. 2. Back spasms. Resolved. 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 Imaging this admission revealed no evidence of fracture. 3. Hypertension with chronic kidney disease. 4. Insulin-dependent diabetes mellitus. 5. Chronic kidney disease mineral bone disease maintained on PhosLo. 6. 3.1 cm abdominal aortic aneurysm. Plan: Hemodialysis tomorrow due to the holiday schedule. Potential discharge today.
[2019-09-21 11:22] LABS: Glucose,Whole Blood 266 mg/dL (75-99)
[2019-09-21] MEDS: LIDOCAINE 5% PATCH TOPICAL SCH (12:35)
[2019-09-21] MEDS: CYCLOBENZAPRINE 10 MG TAB PO PRN ×2 (14:12→19:38)
[2019-09-21] MEDS: HYDROmorphone 0.5 MG/0.5 ML SYRINGE IVP PRN (14:31)
[2019-09-21] MEDS ORDERED: amLODIPine 5 MG TAB PO STA (14:43)
[2019-09-21 17:13] LABS: Glucose,Whole Blood 83 mg/dL (75-99)
[2019-09-21] MEDS: traMADol 50 MG TAB PO PRN (19:00)
[2019-09-21] MEDS: LATANOPROST 0.005% OPHTH DROPS 2.5 ML BTL BOTH EYES SCH (19:38)
[2019-09-21] MEDS: ATORVASTATIN 10 MG TAB PO SCH (19:38)
--- NOTE | 2019-09-22 00:07 | P.PN ---
Subjective Patient came to ER with back spasms. Patient evidently was seen in hemodialysis as per the patient initially told me that he didn't miss to hemodialysis when questioned further he says he may have missed one session of hemodialysis patient is not sure why. Patient is complaining of back spasms. Patient uses Flexeril at home. Patient chest x-ray reviewed by me did show pulmonary edema and patient does have crackles on exam although it was read as no acute changes. She does Saturday hemodialysis sessions and patient didn't c omplete him see more dialysis today patient denied any fever chills nausea vomiting. Patient is bit slow in answering questions. 09/19/2019 This is a pleasant 89 years old male with history of colorectal cancer status post right colostomy, is also end-stage renal disease on hemodialysis. The estela ent presents because of spasm in his back. He was at hemodialysis and underwent he has severe back spasms that they could not even get lines for him to get hemodialysis so they sent him to the emergency room. Information were taken from the patient and dialysis nurse at bedside. Patient states that he has these back spasms for the last almost every 2-3 weeks they were about 90/10 in severity and usually last for 2 hours however when he came to the hospital that day it lasted longer about 3-4 hours which was unusual for him so decided to come to the hospital. Patient states that this spasm this between his shoulder blades and the middle and also lower down the spine. Patient denies weakness or numbness in his lower extremity, he denies to anesthesia. No urine or bowel incontinence. No other complaints Today patient was getting dialysis with no other complaints. He states that he has no more spasm or back pain and he rates it as 0/10. No headache. No weakness or numbness in other extremities. At baseline and he was using a walker 09/20/2019 Patient is fully awake and oriented, is smiling this morning. No more spasm in his back. Lumbar and thoracic spine x-ray showing degenerative disease. Also possible abdominal aneurysm, we will check ultrasound for abdominal aneurysm. Patient is from assisted-living. He is getting hemodialysis today. Nephrology R on the case. 09/21/2019 pt developed two episodes of sever back spasm , it happened after breakfast and lunch as per staff, ct of the spine ordered , consult GI team to rule out esopheal or GI problem as it is related to food , give norvasc and ca channel faisal, and pain management , we will keep monitoring Objective - Vital Signs Vital signs: Vital Signs Temp 97.5 F L 09/21/19 04:53 Pulse 100 09/21/19 15:28 Resp 16 09/21/19 04:53 BP 143/74 09/21/19 15:28 Pulse Ox 93 L 09/21/19 04:53 Intake & Output 09/21/19 09/21/19 09/22/19 06:59 18:59 06:59 Other: Voiding Method Toilet Urinal # Voids 1 # Bowel Movements 1 - Exam GENERAL: The patient is alert and oriented x3, not in any acute distress. Well developed, well nourished. HEENT: Pupils are round and equally reacting to light. EOMI. No scleral icterus. No conjunctival pallor. Normocephalic, atraumatic. No pharyngeal erythema. No thyromegaly. CARDIOVASCULAR: S1 and S2 present. No murmurs, rubs, or gallops. PULMONARY: Chest is clear to auscultation, no wheezing or crackles. ABDOMEN: Soft, nontender, nondistended, normoactive bowel sounds. No palpable organomegaly. MUSCULOSKELETAL: No joint swelling or deformity. -EXTREMITIES: No cyanosis, clubbing, or pedal edema. Right upper extremity fistula for hemodialysis NEUROLOGICAL: Gross neurological examination did not reveal any focal deficits. SKIN: No rashes. no petechiae. - Labs CBC & Chem 7: 09/19/19 07:30 09/19/19 07:30 Labs: Abnormal Lab Results - Last 24 Hours (Table) 09/21/19 Range/Units 11:20 POC Glucose (mg/dL) 266 H (75-99) mg/dL Assessment and Plan Assessment: Back spasm for the last 2 months End-stage renal disease on hemodialysis History of colorectal cancer status post right colostomy since 2010 Dementia Hyperlipidemia Hypertension Plan: This is a pleasant 89 years old male who presents with fluid overload and back spasm. Continue with hemodialysis. We will check abdominal ultrasound for AAA Continue with nephrology consult. Labs and medication were reviewed.. Continue same treatment. Continue with symptomatic treatment. Resume home medication. Monitor lytes and vitals. DVT and GI prophylaxis. Further recommendations of the clinical course of the patient DVT prophylaxis: Subcutaneous heparin GI Prophylaxis: Ppi Prognosis is guarded
[2019-09-22 00:52] LABS: Glucose,Whole Blood 179 mg/dL (75-99)
[2019-09-22 07:07] LABS: Glucose,Whole Blood 124 mg/dL (75-99)
[2019-09-22] MEDS: HEPARIN SODIUM,PORCINE 5,000 UNIT/ML 1 ML VIAL SQ SCH ×2 (07:51→15:05)
[2019-09-22] MEDS: LIDOCAINE 5% PATCH TOPICAL SCH (07:51)
--- NOTE | 2019-09-22 07:51 | P.CONS ---
History of Present Illness - Reason for Consult Consult date: 09/21/19 Back spasms with eating Requesting physician: João E Sheet - Chief Complaint Back spasms - History of Present Illness 89-year-old male with a medical history significant for end-stage renal disease on hemodialysis, colorectal cancer status post resection and right colostomy formation presented to the hospital with reports of spasming in his back. Patient was undergoing hemodialysis when he underwent spasming and back. He was sent to the emergency department for further evaluation. Patient has been having intermittent spasm of his back for the past 3 weeks. The spasms will occur at any time but have occurred after eating on occasion. Patient denies any upper GI symptoms. No dysphagia, reflux or nausea or vomiting reported. He is eating well and tolerating his diet. He reports good output through his ostomy with no signs or symptoms of GI bleeding. Denies any NSAID medications. Unsure if she had EGD in the past. Colonoscopy was performed prior to diagnosis of colon cancer per the patient. Review of Systems REVIEW OF SYSTEMS: CONSTITUTIONAL: Denies any fevers, chills, weight change or fatigue. CARDIOVASCULAR: Denies any chest pain, palpitations high or low blood pressures RESPIRATORY: Denies any shortness of breath, hemoptysis or cough. GENITOURINARY: No dysuria or hematuria, on hemodialysis. MUSCULOSKELETAL: No weakness but reports frequent spasming of his back. SKIN: Denies any new rashes or lesions, jaundice or pallor. PSYCHIATRIC: Denies any depression or anxiety. NEUROLOGY: Denies headache, denies any new focal deficits. EARS/NOSE/THROAT: No recent hearing change, congestion, nasal discharge or sore throat. EYES: No pain in eyes, discharge or change in vision. GASTROINTESTINAL: As per HPI. Past Medical History Past Medical History: Dementia, Dialysis, Hyperlipidemia, Hypertension Additional Past Medical History / Comment(s): kidney failure, colon ca, dialysis mwf History of Any Multi-Drug Resistant Organisms: None Reported Year Discovered:: None MDRO Source:: None Past Surgical History: Bowel Resection, Heart Catheterization With Stent Additional Past Surgical History / Comment(s): colostomy 2010 Past Anesthesia/Blood Transfusion Reactions: No Reported Reaction Date of Last Stent Placement:: 2009 Past Psychological History: No Psychological Hx Reported Smoking Status: Former smoker Past Alcohol Use History: Occasional Past Drug Use History: None Reported - Past Family History Father Family Medical History: No Reported History Mother Family Medical History: No Reported History Medications and Allergies Home Medications Medication Instructions Recorded Confirmed Type Aspirin EC [Ecotrin Low Dose] 81 mg PO Q48H 02/08/16 09/18/19 History Atorvastatin [Lipitor] 10 mg PO HS@1900 02/08/16 09/18/19 History Insulin Detemir [Levemir Flextouch] 30 units SQ QAM@0700 02/08/16 09/18/19 History Multivitamins, Thera [Multivitamin 1 tab PO DAILY@0700 02/08/16 09/18/19 History (formulary)] Cholecalciferol [Vitamin D3 (25 2,000 unit PO DAILY@0700 10/20/16 09/18/19 History Mcg = 1000 Iu)] Ubidecarenone [Co Q-10] 30 mg PO DAILY@0700 10/20/16 09/18/19 History [place] K 1 tab PO DAILY@0700 12/15/17 09/18/19 History Prosynbiotic 1 tab PO BID@0700,1900 12/15/17 09/18/19 History Acetaminophen Tab [Tylenol] 325 mg PO Q6HR PRN 08/17/19 09/18/19 History Albuterol Sulfate [Ventolin HFA] 1 puff INHALATION RT-BID PRN 08/17/19 09/18/19 History Calcium Acetate [PhosLo] 1,334 mg PO TID@0700,1200,1700 08/17/19 09/18/19 History Cinnamon Bark 600mg 600 mg PO DAILY@0700 08/17/19 09/18/19 History Cyclobenzaprine [Flexeril] 10 mg PO Q6H PRN 08/17/19 09/18/19 History Docusate Sodium [Dok] 100 mg PO DAILY PRN 08/17/19 09/18/19 History EPINEPHrine (Auto Inject) [Epipen] 0.3 mg IM ONCE PRN 08/17/19 09/18/19 History [place] Cough Drops 1 lozenge MUCOUS MEM Q2H PRN 08/17/19 09/18/19 History Insulin Aspart [NovoLOG Flexpen] 4 units SQ AC-BRKFST PRN 08/17/19 09/18/19 History Insulin Aspart [NovoLOG Flexpen] 5 units SQ AC-LUNCH PRN 08/17/19 09/18/19 History Magnesium Glycinate 400mg 400 mg PO BID@0700,1900 08/17/19 09/18/19 History Mct Oil 1 oz PO BID@0700,1700 08/17/19 09/18/19 History traMADol HCL 50 mg PO BID PRN 08/17/19 09/18/19 History Latanoprost/Pf [Latanoprost 0.005% 1 drop BOTH EYES HS@1900 09/18/19 09/18/19 History Eye Drop] Omeprazole [PriLOSEC] 20 mg PO DAILY@0700 09/18/19 09/18/19 History guaiFENesin SYRUP 100MG/5ML 200 mg PO Q6H PRN 09/18/19 09/18/19 History [Robitussin] Allergies Allergy/AdvReac Type Severity Reaction Status Date / Time Penicillins Allergy Unknown Verified 09/18/19 18:49 Childhood Sulfa (Sulfonamide Allergy Unknown Verified 09/18/19 18:49 Antibiotics) Childhood Physical Exam Vitals: Vital Signs Temp Pulse Resp BP Pulse Ox 09/21/19 15:28 100 143/74 09/21/19 04:53 97.5 F L 75 16 160/68 93 L Intake and Output 09/21/19 09/21/19 09/21/19 06:59 14:59 22:59 Other: Voiding Method Toilet Urinal # Voids 1 # Bowel Movements 1 On physical examination, patient appears comfortable in no apparent distress. HEAD: Normocephalic, atraumatic. EYES: No scleral icterus. No conjunctival injection. MOUTH: No lesions, tongue midline. NECK: Trachea midline, no gross abnormalities. CHEST: Clear to auscultation with no wheezing or rhonchi appreciated. HEART: Regular rate and rhythm. ABDOMEN: Soft, obese, right abdomen ostomy with normal nonbloody stool output. Bowel sounds are positive. No organomegaly. No guarding or rigidity. EXTREMITIES: No pedal edema. SKIN: No rashes, no jaundice. NEUROLOGIC: Alert and oriented. No focal deficits. Results CBC & Chem 7: 09/19/19 07:30 09/19/19 07:30 Labs: Abnormal Lab Results - Last 24 Hours (Table) 09/21/19 Range/Units 11:20 POC Glucose (mg/dL) 266 H (75-99) mg/dL Assessment and Plan (1) Back spasm Narrative/Plan: 89-year-old male with a medical history of colorectal cancer status post resection and ostomy formation as well as end-stage renal disease on hemodialysis presented to the hospital from hemodialysis center with spasms. The spasming will occur randomly throughout the day. Occasionally it has been associated with eating. Denies any other GI complaints reporting good output from his ostomy, no signs or symptoms GI bleeding, no reflux, no dysphagia, no nausea and vomiting. Unknown etiology, recommend further evaluation for other possible causes musculoskeletal, neurologic, electrolyte imbalances with GI etiology very unlikely. Current Visit: Yes Status: Acute Code(s): M62.830 - MUSCLE SPASM OF BACK SNOMED Code(s): 925197025 (2) ESRD (end stage renal disease) on dialysis Current Visit: Yes Status: Acute Code(s): N18.6 - END STAGE RENAL DISEASE; Z99.2 - DEPENDENCE ON RENAL DIALYSIS SNOMED Code(s): 828262048 Plan: Supportive care Okay for diet Continue current medical management No plan for endoscopic evaluation Thank you for allowing us to participate in the care of the patient, the GI service will stand by, please call us back with any questions or concerns
[2019-09-22] MEDS: INSULIN DETEMIR (LEVEMIR) 100 UNIT/ML SYR SQ SCH (07:52)
[2019-09-22] MEDS: PANTOPRAZOLE 40 MG TABLET PO SCH (07:52)
[2019-09-22] MEDS: MULTIVITAMINS, THERA 1 EACH TAB PO SCH (07:52)
[2019-09-22] MEDS: traMADol 50 MG TAB PO PRN (07:52)
[2019-09-22] MEDS: CHOLECALCIFEROL 1,000 UNIT TAB PO SCH (07:52)
[2019-09-22] MEDS: CYCLOBENZAPRINE 10 MG TAB PO PRN (07:52)
[2019-09-22] MEDS: CALCIUM ACETATE 667 MG TAB PO SCH ×2 (07:52→14:20)
--- NOTE | 2019-09-22 08:07 | CT ---
EXAMINATION TYPE: CT thor lumbar spine wo con DATE OF EXAM: 09/22/2019 COMPARISON: CT thoracolumbar spine August 17, 2019 HISTORY: Back Spasms and pain. CT DLP: 1667.50 mGycm Automated exposure control for dose reduction was used. FINDINGS: There is persistent demineralization with S-shaped scoliosis involving the thoracic spine. Satisfacto ry alignment lumbar spine is identified. Persistent 5 lumbar type vertebra. Vertebral body heights an d disc space heights are fairly well-maintained. Mild to moderate multilevel anterior lateral spine w ith the lower thoracic spine. No new large posterior disc herniations are present on sagittal images. Spinal canal grossly preserved. Review of axial images redemonstrates left paracentral spur disc complex effacing the anterolateral t hecal sac T3-T4 level image 28. There is [id number] facet degenerative change with kgel-fv-[id number] broad disc bulge effacing t he anterior thecal sac at L3-L4 level image 140 with mild bilateral anterior inferior neural foramina l narrowing. No significant change from prior. Axial images at L4-L5 level show mild/moderate facet degenerative changes bilaterally along with broa d disc bulge that has central disc protrusion component effacing the anterior thecal sac on axial arlene ge 151 causing mild bilateral anterior inferior neural foraminal narrowing. No significant change fro m prior. Axial images at L5-S1 level show moderate to advanced right greater than left facet degenerative kay ges. Spinal canal is preserved. Bilateral neural foramina show mild/moderate right-sided narrowing du e to marginal spurring. 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 Coronary artery calcifi cation is redemonstrated which is noted marker for underlying coronary artery disease. There is emphy sematous change with mild bilateral lower lung linear scarring and/or atelectasis. Gallbladder is distended margin with dependent small stones and/or gallbladder sludge. There is marke d cortical thinning of both kidneys consistent with chronic medical renal disease. There is stable 2. 9 cm anterior hyperdense lesion lower pole right kidney could reflect proteinaceous cyst or solid mas s. Correlate clinically. Lesion was present December 15, 2017 without significant interval change in siz e favoring hemorrhagic or proteinaceous cyst. Moderate calcified plaque of the aorta is noted. IMPRESSION: Demineralization with multilevel degenerative changes as detailed above. No significant c hange from prior.
[2019-09-22] MEDS ORDERED: IBUPROFEN 800 MG TAB PO STA (08:54)
--- NOTE | 2019-09-22 08:57 | P.PN ---
Subjective Patient came to ER with back spasms. Patient evidently was seen in hemodialysis as per the patient initially told me that he didn't miss to hemodialysis when questioned further he says he may have missed one session of hemodialysis patient is not sure why. Patient is complaining of back spasms. Patient uses Flexeril at home. Patient chest x-ray reviewed by me did show pulmonary edema and patient does have crackles on exam although it was read as no acute changes. She does Saturday hemodialysis sessions and patient didn't c omplete him see more dialysis today patient denied any fever chills nausea vomiting. Patient is bit slow in answering questions. 09/19/2019 This is a pleasant 89 years old male with history of colorectal cancer status post right colostomy, is also end-stage renal disease on hemodialysis. The estela ent presents because of spasm in his back. He was at hemodialysis and underwent he has severe back spasms that they could not even get lines for him to get hemodialysis so they sent him to the emergency room. Information were taken from the patient and dialysis nurse at bedside. Patient states that he has these back spasms for the last almost every 2-3 weeks they were about 90/10 in severity and usually last for 2 hours however when he came to the hospital that day it lasted longer about 3-4 hours which was unusual for him so decided to come to the hospital. Patient states that this spasm this between his shoulder blades and the middle and also lower down the spine. Patient denies weakness or numbness in his lower extremity, he denies to anesthesia. No urine or bowel incontinence. No other complaints Today patient was getting dialysis with no other complaints. He states that he has no more spasm or back pain and he rates it as 0/10. No headache. No weakness or numbness in other extremities. At baseline and he was using a walker 09/20/2019 Patient is fully awake and oriented, is smiling this morning. No more spasm in his back. Lumbar and thoracic spine x-ray showing degenerative disease. Also possible abdominal aneurysm, we will check ultrasound for abdominal aneurysm. Patient is from assisted-living. He is getting hemodialysis today. Nephrology R on the case. 09/21/2019 pt developed two episodes of sever back spasm , it happened after breakfast and lunch as per staff, ct of the spine ordered , consult GI team to rule out esopheal or GI problem as it is related to food , give norvasc and ca channel faisal, and pain management , we will keep monitoring 09/22/2019 Patient still developing spasm in his upper back. GI consult appreciated, they don't think is related to her GI symptoms. Patient has 2 episodes of back spasm yesterday, I witnessed one specimen this morning, his pain is along spinal processes and has pain and tenderness in the left paraspinal muscle from the level of upper thoracic and maybe involve lower cervical spinous process to the level of mid thoracic. No rash, no nausea vomiting, no other complaints. No chest pain or dyspnea. Patient yesterday was started on Norvasc, also is on lidocaine patch and Cymbalta was added. Thoracolumbar CAT scan is ordered: No metastases were noted in view of his colorectal cancer, no spinal canal stenosis however he has multilevel degenerative disc disease, with left paracentral spur and disc complex at T3 to T4, also he has coronary artery calcification which is a marker for coronary artery disease. His been evaluated by [facility] last year on 03/10. It looks like the patient has long history of back pain and also from 2017. Were going to call orthopedic consult, cardiology consult Objective - Vital Signs Vital signs: Vital Signs Temp 97.8 F 09/22/19 05:04 Pulse 77 09/22/19 05:04 Resp 18 09/22/19 05:04 BP 121/61 09/22/19 05:04 Pulse Ox 93 L 09/22/19 05:04 Intake & Output 09/21/19 09/22/19 09/22/19 18:59 06:59 18:59 Other: Voiding Method Toilet Urinal # Voids 0 # Bowel Movements 1 - Exam GENERAL: The patient is alert and oriented x3, not in any acute distress. Well developed, well nourished. HEENT: Pupils are round and equally reacting to light. EOMI. No scleral icterus. No conjunctival pallor. Normocephalic, atraumatic. No pharyngeal erythema. No thyromegaly. CARDIOVASCULAR: S1 and S2 present. No murmurs, rubs, or gallops. PULMONARY: Chest is clear to auscultation, no wheezing or crackles. ABDOMEN: Soft, nontender, nondistended, normoactive bowel sounds. No palpable organomegaly. MUSCULOSKELETAL: No joint swelling or deformity. -EXTREMITIES: No cyanosis, clubbing, or pedal edema. Right upper extremity fistula for hemodialysis NEUROLOGICAL: Gross neurological examination did not reveal any focal deficits. SKIN: No rashes. no petechiae. - Labs CBC & Chem 7: 09/19/19 07:30 09/19/19 07:30 Labs: Abnormal Lab Results - Last 24 Hours (Table) 09/21/19 09/22/19 09/22/19 Range/Units 11:20 00:51 07:05 POC Glucose (mg/dL) 266 H 179 H 124 H (75-99) mg/dL Assessment and Plan Assessment: Back spasm for the last 2 months End-stage renal disease on hemodialysis History of colorectal cancer status post right colostomy since 2010 Dementia Hyperlipidemia Hypertension Plan: This is a pleasant 89 years old male who presents with fluid overload and back spasm. Continue with hemodialysis. Continue with nephrology consult. We'll consult cardiology and orthopedic. Pain management Labs and medication were reviewed.. Continue same treatment. Continue with symptomatic treatment. Resume home medication. Monitor lytes and vitals. DVT and GI prophylaxis. Further recommendations of the clinical course of the pito cui DVT prophylaxis: Subcutaneous heparin GI Prophylaxis: Ppi Prognosis is guarded
[2019-09-22] MEDS ORDERED: amLODIPine 5 MG TAB PO SCH (09:00)
[2019-09-22] MEDS ORDERED: DULoxetine HCL 30 MG CAPSULE.DR PO SCH (09:00)
--- NOTE | 2019-09-22 11:05 | CONS ---
CONSULTATION Mr. Serrano is an 89-year-old male with known history of end-stage renal disease on hemodialysis, who presented with severe back spasm. Cardiology consultation was requested because of calcification noted on the coronary arteries on a CAT scan. Patient is awake but confused, accurate history could not be obtained from him. Reviewing the records, patient was in the hospital in January of 2018 and at that time there was a questionable history of CAD, although the details of that not available. He has a history of dementia, history of colostomy, history of colon cancer. He had an echocardiogram during that hospitalization and that showed a preserved systolic function, with no significant valvular disease although it was technically difficult. Patient has been complaining of severe back pain and he underwent thoracic, lumbar spine CT and that showed calcification noted on the coronary arteries. There was evidence of multilevel degenerative changes in the back. I am not able to obtain any other history from the patient. MEDICATIONS: At home included tramadol, coenzyme Q10, Prilosec, insulin, Flexeril, PhosLo, Lipitor, aspirin, Ventolin, and Tylenol. REVIEW OF SYSTEMS: Not accurate and could not be obtained. PHYSICAL EXAMINATION: An 89-year-old male, alert, confused. Blood pressure 121/60 with a heart rate in the 70s. LUNGS: Clear. HEART: Regular rate and rhythm, S1, S2. No S3 with systolic murmur, no diastolic murmur, no rub. ABDOMEN: Soft. Colostomy bag noted. EXTREMITIES: No edema. LAB DATA: None done today. On the , his BUN and creatinine 45 and 9.6, potassium 5.5, hemoglobin of 11.5. IMPRESSION: 1. Calcification of coronary arteries with no evidence to suggest acute coronary artery syndrome. 2. Severe back spasm. Workup in progress. 3. End-stage renal disease, on hemodialysis. 4. Diabetes. 5. Hyperlipidemia. RECOMMENDATION: From the cardiac standpoint, I would not recommend any further cardiac workup. The patient is not a candidate for any cardiac workup at this point. Will see him on an as- needed basis. Please feel free to call us for any question. MMODL / IJN: [id number] /
[2019-09-22 11:12] LABS: Glucose,Whole Blood 122 mg/dL (75-99)
--- NOTE | 2019-09-22 11:17 | P.CNOR ---
History of Present Illness - [facility] Consult date: 09/22/19 Consult reason: back pain History of present illness: Patient is a 89-year-old male seen at bedside this morning in consultation for back pain. He is resting comfortably in bed during presentation when interviewed this morning. Per records he has chronic back pain and intermittent episodes of spasms. The back pain that he complains of this morning is in between the area of the shoulder blades he relays. He is easily startled and overly reactive with verbal responses and then returns to the calm resting st ate. He is currently denying radicular symptoms including numbness or tingling of the lower extremities. He was admitted through the emergency department on 09/18/2019 when patient had called EMS from dialysis. He receives dialysis Saturday, Saturday, Saturday with history of end-stage renal disease. He's had chronic back pain for some time and denies any new injury. He states he has pain from time to time, sometimes worse with hemodialysis. He has had studies including CT of the thoracic and lumbar spine as well as x-rays of the thoracic spine and lumbar spine. He has been getting a muscle relaxant, one-time dose of anti-inflammatory medicine, tramadol for pain twice a day when necessary as well as OT/PT has been ordered. Review of systems is negative for fever, chills, chest pain, shortness breath, nausea, vomiting, dizziness, headaches or other. Review of Systems All systems: negative Constitutional: Denies chills, Denies fever Eyes: denies blurred vision, denies pain Ears, nose, mouth and throat: Denies headache, Denies sore throat Cardiovascular: Denies chest pain, Denies shortness of breath Respiratory: Denies cough Gastrointestinal: Denies abdominal pain, Denies diarrhea, Denies nausea, Denies vomiting Musculoskeletal: Denies myalgias Integumentary: Denies pruritus, Denies rash Neurological: Denies numbness, Denies weakness Psychiatric: Denies anxiety, Denies depression Endocrine: Denies fatigue, Denies weight change Past Medical History Past Medical History: Dementia, Dialysis, Hyperlipidemia, Hypertension Additional Past Medical History / Comment(s): kidney failure, colon ca, dialysis mwf History of Any Multi-Drug Resistant Organisms: None Reported Year Discovered:: None MDRO Source:: None Past Surgical History: Bowel Resection, Heart Catheterization With Stent Additional Past Surgical History / Comment(s): colostomy 2010 Past Anesthesia/Blood Transfusion Reactions: No Reported Reaction Date of Last Stent Placement:: 2009 Past Psychological History: No Psychological Hx Reported Smoking Status: Former smoker Past Alcohol Use History: Occasional Past Drug Use History: None Reported - Past Family History Father Family Medical History: No Reported History Mother Family Medical History: No Reported History Medications and Allergies Home Medications Medication Instructions Recorded Confirmed Type Aspirin EC [Ecotrin Low Dose] 81 mg PO Q48H 02/08/16 09/18/19 History Atorvastatin [Lipitor] 10 mg PO HS@1900 02/08/16 09/18/19 History Insulin Detemir [Levemir Flextouch] 30 units SQ QAM@0700 02/08/16 09/18/19 History Multivitamins, Thera [Multivitamin 1 tab PO DAILY@0700 02/08/16 09/18/19 History (formulary)] Cholecalciferol [Vitamin D3 (25 2,000 unit PO DAILY@0700 10/20/16 09/18/19 History Mcg = 1000 Iu)] Ubidecarenone [Co Q-10] 30 mg PO DAILY@0700 10/20/16 09/18/19 History [place] K 1 tab PO DAILY@0700 12/15/17 09/18/19 History Prosynbiotic 1 tab PO BID@0700,1900 12/15/17 09/18/19 History Acetaminophen Tab [Tylenol] 325 mg PO Q6HR PRN 08/17/19 09/18/19 History Albuterol Sulfate [Ventolin HFA] 1 puff INHALATION RT-BID PRN 08/17/19 09/18/19 History Calcium Acetate [PhosLo] 1,334 mg PO TID@0700,1200,1700 08/17/19 09/18/19 History Cinnamon Bark 600mg 600 mg PO DAILY@0700 08/17/19 09/18/19 History Cyclobenzaprine [Flexeril] 10 mg PO Q6H PRN 08/17/19 09/18/19 History Docusate Sodium [Dok] 100 mg PO DAILY PRN 08/17/19 09/18/19 History EPINEPHrine (Auto Inject) [Epipen] 0.3 mg IM ONCE PRN 08/17/19 09/18/19 History [place] Cough Drops 1 lozenge MUCOUS MEM Q2H PRN 08/17/19 09/18/19 History Insulin Aspart [NovoLOG Flexpen] 4 units SQ AC-BRKFST PRN 08/17/19 09/18/19 History Insulin Aspart [NovoLOG Flexpen] 5 units SQ AC-LUNCH PRN 08/17/19 09/18/19 History Magnesium Glycinate 400mg 400 mg PO BID@0700,1900 08/17/19 09/18/19 History Mct Oil 1 oz PO BID@0700,1700 08/17/19 09/18/19 History traMADol HCL 50 mg PO BID PRN 08/17/19 09/18/19 History Latanoprost/Pf [Latanoprost 0.005% 1 drop BOTH EYES HS@1900 09/18/19 09/18/19 History Eye Drop] Omeprazole [PriLOSEC] 20 mg PO DAILY@0700 09/18/19 09/18/19 History guaiFENesin SYRUP 100MG/5ML 200 mg PO Q6H PRN 09/18/19 09/18/19 History [Robitussin] Allergies Allergy/AdvReac Type Severity Reaction Status Date / Time Penicillins Allergy Unknown Verified 09/18/19 18:49 Childhood Sulfa (Sulfonamide Allergy Unknown Verified 09/18/19 18:49 Antibiotics) Childhood Physical Examination In general he is in no apparent distress. Inspection of the thoracic and lumbar spine shows no wounds, erythema or ecchymoses. There is no obvious deformity. He has mild paraspinal spasming of the thoracolumbar spine. There is no step-off. No fluid collection or excessive warmth. Remainder of exam is limited due to his uncooperation. However, he appears to be grossly intact with both motor and sensation throughout the lower extremities as he is able to flex and extend against gravity at the hip flexors and quadriceps. He is also able to flex and extend at the ankle and toes upon request. Calves are soft and nontender. L2 through S1 dermatomes are intact equal bilaterally. No hyperreflexia. Perfusion is intact with less than 2 second capillary refill distally. 2+ dorsalis pedis pulses are present.No clonus. Results X-rays of the thoracic and lumbar spine as well as CT of the thoracic and lumbar spine are reviewed as well as the reports. He is a mild dextroscoliotic curve of the thoracic spine which is likely degenerative in nature. He has multiple levels of spondylosis and degenerative disc disease throughout the thoracolumbar spine. There are bridging anterior and lateral osteophytes at multiple levels of the thoracic and lumbar spine. There are no acute compression fractures or other instability. CT shows no significant canal stenosis throughout the thoracic and lumbar spine. 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 Surgical intervention is not warranted. Would recommend continued conservative measures including physical therapy with neutral spine stabilization, medications including those for pain as well as mus julisa spasm, possible corticosteroids given that he cannot take NSAIDs due to his end-stage renal disease. Would also consider possible referral to pain management for further intervention as well. We'll defer choice of medications to primary team given his other comorbidities and their preference. Would also rule out other possible etiologies of his mid back pain. Thank you for consult. Will sign off for now and we'll be happy to revisit patient if requested. He may also follow-up as an outpatient in one week from discharge. Current Visit: Yes Status: Acute Priority: Medium Code(s): M62.830 - MUSCLE SPASM OF BACK SNOMED Code(s): 370583077 Time with Patient: Less than 30
--- NOTE | 2019-09-22 13:45 | P.PN ---
Subjective Progress Note Date: 09/22/19 Follow-up for ESRD. Seen during dialysis tolerating well Objective - Vital Signs Vital signs: Vital Signs Temp 98.6 F 09/22/19 11:35 Pulse 80 09/22/19 11:35 Resp 20 09/22/19 11:35 BP 108/49 09/22/19 11:35 Pulse Ox 91 L 09/22/19 11:35 Intake & Output 09/21/19 09/22/19 09/22/19 18:59 06:59 18:59 Other: Voiding Method Toilet Urinal # Voids 0 # Bowel Movements 1 - Exam No acute distress S1-S2 heard Lungs clear Right upper arm AVG - Labs CBC & Chem 7: 09/19/19 07:30 09/19/19 07:30 Labs: Abnormal Lab Results - Last 24 Hours (Table) 09/22/19 09/22/19 09/22/19 Range/Units 00:51 07:05 11:11 POC Glucose (mg/dL) 179 H 124 H 122 H (75-99) mg/dL Assessment and Plan Assessment: #1 back spasms workup in process #2 ESRD, MWF schedule #3 hypertension with ESRD #4 metabolic bone disease with ESRD #5 diabetes on insulin Plan: #1 hemodialysis today. Plan dialysis again on as per outpatient schedule
--- NOTE | 2019-09-22 14:29 | P.DS ---
Providers Date of admission: 09/22/19 08:51 Attending physician: Savgae Carroll Consults: 09/18/19 17:11 Consult Physician Routine Consulting Provider: Judy Tay Consult Reason/Comments: ESRD Do you want consulting provider notified?: Yes 09/22/19 09:36 Consult Physician Urgent Consulting Provider: Aleksandra Davis Consult Reason/Comments: back pain, degenerative disk disease Do you want consulting provider notified?: Yes Primary care physician: Chace Kellyqvi Hospital Course: Diagnoses: -Back spasm for the last 2 months, on the top of chronic back pain at least since 2017 could be related to his spondylitic changes and the spine. -End-stage renal disease on hemodialysis -Abdominal aortic aneurysm of 3.1 cm similar to exam done on 08/12/2019 -History of colorectal cancer status post right colostomy since 2010 -Dementia -Hyperlipidemia -Hypertension Hospital course: This is a pleasant 89 years old male with history of colorectal cancer status post right colostomy,he is also end-stage renal disease on hemodialysis. The patient presents because of intermittent spasms in his back. He was at hemodialysis center when he has severe back spasms that they could not even get lines for him to get hemodialysis so they sent him to the emergency room. Information were taken from the patient and dialysis nurse at bedside. Patient states that he has these back spasms for the last 2 months almost every 2-3 weeks they were about 9/10 in severity and usually last for 2 hours however when he came to the hospital that day it lasted longer about 3-4 hours which was unusual for him so decided to come to the hospital. Patient states that this spasm this between his shoulder blades and the middle and also lower down the spine. However patient denies chronic back pain or acute pain when I evaluated the Patient denies weakness or numbness in his lower extremity, he denies to anesthesia. No urine or bowel incontinence. No other complaints Today patient was getting dialysis with no other complaints. He states that he has no more spasm or back pain and he rates it as 0/10. No headache. No weakness or numbness in other extremities. However still at times he has back spasm however it looks like more exacerbation of acute on chronic back pain due to degenerative disc disease. Thoracolumbar CAT scan is ordered: No metastases were noted in view of his colorectal cancer, no spinal canal stenosis however he has multilevel degenerative disc disease, with left paracentral spur and disc complex at T3 to T4 reattempts patient has been evaluated by orthopedic spine team and they recommended to continue with conservative therapy, follow-up outpatient with pain management and orthopedic service in 2-3 weeks. Patient informed with this recommendation and he agrees. Patient was instructed to follow up with Dr. Davis the orthopedic as well as Dr. Ocasio the pain specialist, contact information is provided for the patient and he agrees -Patient will be discharged on Tylenol, Ultram as needed, endocrine and lidocaine patch At baseline and he was using a walker Thoracic spine x-ray showing mild multilevel spondylitic changes, no fracture seen no adverse change compared to old exam Lumbar spine x-ray showing spondylitic changes as well, no fracture, no change compared to old exam. However on the discharge time patient has no pain, he got a little discomfort at times. Gait is at baseline. We'll discharge patient on lidocaine patch. Patient might benefit from follow-up as an outpatient Problems and management plan were discussed with the patient and he verbalized understanding and acceptance Patient was found stable and can be discharged home however he needs follow-up as an outpatient. Patient was instructed to follow up with PCP within one week and patient agrees. She also was instructed to follow up with his spine surgeon and oncologist in one week after discharge. Follow-up inspection of the above Gen: patient is a AAOx3, no distress CVS: S1-S2, RRR, no murmur Lungs: B/L CTA, no wheezing Abdomen: soft, no distention, no tenderness, positive bowel sounds Extremity: no leg edema or induration Time spent more than 35 minutes Patient Condition at Discharge: Stable Plan - Discharge Summary Discharge Rx Participant: Yes New Discharge Prescriptions: New Lidocaine 5% Patch [Lidoderm 5% Patch] 1 patch TOPICAL DAILY #30 patch Acetaminophen Tab [Tylenol] 650 mg PO Q6HR PRN tab PRN Reason: Mild Pain Or Fever > 100.5 Capsaicin Cream [Trixaicin Cream] 1 applic TOPICAL BID 5 Days #1 tube Acetaminophen Tab [Tylenol Tab] 650 mg PO Q4H PRN #20 tablet PRN Reason: Moderate Pain Continue Aspirin EC [Ecotrin Low Dose] 81 mg PO Q48H Multivitamins, Thera [Multivitamin (formulary)] 1 tab PO DAILY@0700 Atorvastatin [Lipitor] 10 mg PO HS@1900 Insulin Detemir [Levemir Flextouch] 30 units SQ QAM@0700 Cholecalciferol [Vitamin D3 (25 Mcg = 1000 Iu)] 2,000 unit PO DAILY@0700 Ubidecarenone [Co Q-10] 30 mg PO DAILY@0700 Prosynbiotic 1 tab PO BID@0700,1900 [place] K 1 tab PO DAILY@0700 Albuterol Sulfate [Ventolin HFA] 1 puff INHALATION RT-BID PRN PRN Reason: Shortness Of Breath [place] Cough Drops 1 lozenge MUCOUS MEM Q2H PRN PRN Reason: Cough EPINEPHrine (Auto Inject) [Epipen] 0.3 mg IM ONCE PRN PRN Reason: Anaphylaxis Docusate Sodium [Dok] 100 mg PO DAILY PRN PRN Reason: Constipation Cyclobenzaprine [Flexeril] 10 mg PO Q6H PRN PRN Reason: Muscle Spasm Insulin Aspart [NovoLOG Flexpen] 5 units SQ AC-LUNCH PRN PRN Reason: SUGAR OVER 125 Insulin Aspart [NovoLOG Flexpen] 4 units SQ AC-BRKFST PRN PRN Reason: SUGAR OVER 125 Mct Oil 1 oz PO BID@0700,1700 Magnesium Glycinate 400mg 400 mg PO BID@0700,1900 Cinnamon Bark 600mg 600 mg PO DAILY@0700 Acetaminophen Tab [Tylenol] 325 mg PO Q6HR PRN PRN Reason: Pain Calcium Acetate [PhosLo] 1,334 mg PO TID@0700,1200,1700 guaiFENesin SYRUP 100MG/5ML [Robitussin] 200 mg PO Q6H PRN PRN Reason: Cough Latanoprost/Pf [Latanoprost 0.005% Eye Drop] 1 drop BOTH EYES HS@1900 Omeprazole [PriLOSEC] 20 mg PO DAILY@0700 Changed traMADol HCL 50 mg PO DAILY PRN 4 Days #4 tab PRN Reason: Pain Discharge Medication List Aspirin EC [Ecotrin Low Dose] 81 mg PO Q48H 02/08/16 [History] Atorvastatin [Lipitor] 10 mg PO HS@1900 02/08/16 [History] Insulin Detemir [Levemir Flextouch] 30 units SQ QAM@0700 02/08/16 [History] Multivitamins, Thera [Multivitamin (formulary)] 1 tab PO DAILY@0700 02/08/16 [History] Cholecalciferol [Vitamin D3 (25 Mcg = 1000 Iu)] 2,000 unit PO DAILY@0700 10/20/16 [History] Ubidecarenone [Co Q-10] 30 mg PO DAILY@0700 10/20/16 [History] [place] K 1 tab PO DAILY@0700 12/15/17 [History] Prosynbiotic 1 tab PO BID@0700,1900 12/15/17 [History] Acetaminophen Tab [Tylenol] 325 mg PO Q6HR PRN 08/17/19 [History] Albuterol Sulfate [Ventolin HFA] 1 puff INHALATION RT-BID PRN 08/17/19 [History] Calcium Acetate [PhosLo] 1,334 mg PO TID@0700,1200,1700 08/17/19 [History] Cinnamon Bark 600mg 600 mg PO DAILY@0700 08/17/19 [History] Cyclobenzaprine [Flexeril] 10 mg PO Q6H PRN 08/17/19 [History] Docusate Sodium [Dok] 100 mg PO DAILY PRN 08/17/19 [History] EPINEPHrine (Auto Inject) [Epipen] 0.3 mg IM ONCE PRN 08/17/19 [History] [place] Cough Drops 1 lozenge MUCOUS MEM Q2H PRN 08/17/19 [History] Insulin Aspart [NovoLOG Flexpen] 4 units SQ AC-BRKFST PRN 08/17/19 [History] Insulin Aspart [NovoLOG Flexpen] 5 units SQ AC-LUNCH PRN 08/17/19 [History] Magnesium Glycinate 400mg 400 mg PO BID@0700,1900 08/17/19 [History] Mct Oil 1 oz PO BID@0700,1700 08/17/19 [History] Latanoprost/Pf [Latanoprost 0.005% Eye Drop] 1 drop BOTH EYES HS@189909/18/19 [History] Omeprazole [PriLOSEC] 20 mg PO DAILY@0700 09/18/19 [History] guaiFENesin SYRUP 100MG/5ML [Robitussin] 200 mg PO Q6H PRN 09/18/19 [History] Acetaminophen Tab [Tylenol Tab] 650 mg PO Q4H PRN #20 tablet 12/31/19 [Rx] Acetaminophen Tab [Tylenol] 650 mg PO Q6HR PRN tab 09/22/19 [Rx] Capsaicin Cream [Trixaicin Cream] 1 applic TOPICAL BID 5 Days #1 tube 09/22/19 [Rx] Lidocaine 5% Patch [Lidoderm 5% Patch] 1 patch TOPICAL DAILY #30 patch 09/22/19 [Rx] traMADol HCL 50 mg PO DAILY PRN 4 Days #4 tab 09/22/19 [Rx] Follow up Appointment(s)/Referral(s): Chace Marshall MD [Primary Care Provider] - 1-2 days Lamberto Dale MD [STAFF PHYSICIAN] - 2 Weeks Aleksandra Davis DO [Doctor of Osteopathic Medicine] - 3 Weeks (follow up in with orthopedic spine surgeon) Ciara Ocasio MD [Medical Doctor] - 2 Weeks (critical care specialist) Activity/Diet/Wound Care/Special Instructions: follow up with pt's own Oncology DR. within one or two weeks after discharge. Renal diet Activity is limited
[2019-09-22 15:36] VITALS: BP 128/70; PULSE 70; RESP 22; TEMP 98
== END 2019-09-22 16:45 | disposition home health service (06) | DRG 551 ==
LOC: EC 13:27 → 5NMEDONC 17:01 → OBSVTOIN 09-22 08:51
PROVIDERS: ADMIT Hospitalist; ATTEND Hospitalist
PROC: 5A1D70Z Performance of Urinary Filtration, Intermittent, Less than 6 Hours Per Day (ICD-10-PCS; principal; 2019-09-19)
DX: M47.9 Spondylosis, unspecified (principal); N18.6 End stage renal disease; I12.0 Hypertensive chronic kidney disease with stage 5 chronic kidney disease or end stage renal disease; M41.54 Other secondary scoliosis, thoracic region; E83.39 Other disorders of phosphorus metabolism; E11.22 Type 2 diabetes mellitus with diabetic chronic kidney disease; F03.90 Unspecified dementia, unspecified severity, without behavioral disturbance, psychotic disturbance, mood disturbance, and anxiety; M51.34 Other intervertebral disc degeneration, thoracic region; M51.36 Other intervertebral disc degeneration, lumbar region; E78.5 Hyperlipidemia, unspecified; E87.70 Fluid overload, unspecified; R79.89 Other specified abnormal findings of blood chemistry; G89.29 Other chronic pain; I25.10 Atherosclerotic heart disease of native coronary artery without angina pectoris; I71.4 Abdominal aortic aneurysm, without rupture; M47.816 Spondylosis without myelopathy or radiculopathy, lumbar region; M48.061 Spinal stenosis, lumbar region without neurogenic claudication; M62.830 Muscle spasm of back; E66.9 Obesity, unspecified; Z68.30 Body mass index [BMI] 30.0-30.9, adult; Z79.4 Long term (current) use of insulin; Z79.899 Other long term (current) drug therapy; Z79.82 Long term (current) use of aspirin; Z88.0 Allergy status to penicillin; Z88.2 Allergy status to sulfonamides; Z99.2 Dependence on renal dialysis; Z85.048 Personal history of other malignant neoplasm of rectum, rectosigmoid junction, and anus; Z93.3 Colostomy status; Z87.891 Personal history of nicotine dependence; Z95.5 Presence of coronary angioplasty implant and graft; Z90.49 Acquired absence of other specified parts of digestive tract
CPT/HCPCS: 36415; 71046; 72070; 72100; 72128; 72131; 80048; 80053; 81001; 83735; 84100; 85025; 90935; 93979; 96374; 96375; 99285

== ENCOUNTER 2019-12-03 | Inpatient (IN) | payer MEDICARE, OTHER | END 2019-12-03 14:49 | disposition home or self-care (01) | DRG 70 | PROVIDERS: ADMIT Hospitalist | PROC: 5A1D70Z Performance of Urinary Filtration, Intermittent, Less than 6 Hours Per Day (ICD-10-PCS; principal; 2019-12-01) | CPT/HCPCS: 36415; 70450; 71045; 80053; 81001; 82140; 83605; 83735; 85025; 85610; 85730; 87086; 90935; 93005; 96374; 99285 ==